=== PATIENT | male | born 1935 | race Caucasian/White ===

== ENCOUNTER 2017-08-17 17:06 | Emergency (ER) | payer MEDICARE, OTHER ==
[2017-08-17 17:46] LABS: ADD MAN DIFF? NO
[2017-08-17 17:58] LABS: BASO # 0.1 x10^3/uL (0.0-0.2); BASO % 1 % (0-3); EOS # 0.2 x10^3/uL (0.0-0.7); EOS % 3 % (0-3); HEMATOCRIT 44.9 % (39.0-53.0); HEMOGLOBIN 14.9 g/dL (13.0-17.5); LYMPH % 30 % (24-48); MEAN CORPUSCULAR HEMOGLOBIN 31 pg (25-35); MEAN CORPUSCULAR HGB CONC 33 g/dL (31-37); MEAN CORPUSCULAR VOLUME 92 fL (79-100); MONO # 0.7 x10^3/uL (0.0-1.1); MONO % 10 % (0-9); NEUT # 3.7 x10^3uL (1.8-7.7); NEUT % 56 % (31-73); PLATELET COUNT 213 x10^3/uL (140-400); RED BLOOD COUNT 4.86 x10^6/uL (4.30-5.70); WHITE BLOOD COUNT 6.6 x10^3/uL (4.0-11.0)
[2017-08-17 18:06] LABS: PROTHROMBIN TIME PATIENT 12.6 SEC (11.7-14.0)
[2017-08-17 18:08] LABS: ANION GAP 7 (6-14); BLOOD UREA NITROGEN 19 mg/dL (8-26); BUN/CREATININE RATIO 16 (6-20); CALCIUM 9.1 mg/dL (8.5-10.1); CARBON DIOXIDE 33 mmol/L (21-32); CHLORIDE 102 mmol/L (98-107); CREATININE 1.2 mg/dL (0.7-1.3); GFR 58.3; GLUCOSE 180 mg/dL (70-99); POTASSIUM 4.8 mmol/L (3.5-5.1); SODIUM 142 mmol/L (136-145)
[2017-08-17 18:13] LABS: ALBUMIN 3.9 g/dL (3.4-5.0); ALBUMIN/GLOBULIN RATIO 1.1 (1.0-1.7); ALK PHOS 76 U/L (46-116); ALT (SGPT) 22 U/L (16-63); AST (SGOT) 15 U/L (15-37); MAGNESIUM 1.6 mg/dL (1.8-2.4); TOTAL BILIRUBIN 0.4 mg/dL (0.2-1.0); TOTAL PROTEIN 7.5 g/dL (6.4-8.2)
[2017-08-17 18:14] LABS: TROPONINI < 0.017 ng/mL (0.000-0.055)
[2017-08-17 18:17] LABS: NT-PRO BNP 1444 pg/mL (0-449)
[2017-08-17 18:17] LABS: CKMB INDEX 2.1 % (0-4); CKMB MASS 2.9 ng/mL (0.0-3.6); CREATINE KINASE 135 U/L (39-308)
[2017-08-17] MEDS: IV NORMAL SALINE 1000ML BAG 1,000 ML IV (19:15)
[2017-08-17 20:48] LABS: BILIRUBIN,URINE NEGATIVE (NEG); CLARITY,URINE CLEAR; COLOR,URINE YELLOW; GLUCOSE,URINE 250 mg/dL (NEG); NITRITE,URINE NEGATIVE (NEG); PROTEIN,URINE NEGATIVE (NEG-TRACE); UROBILINOGEN,URINE 0.2 mg/dL (0.2 mg/dL)
[2017-08-17 21:01] LABS: BACTERIA,URINE FEW /HPF (0-FEW); RBC,URINE OCC /HPF (0-2); SQUAMOUS EPITHELIAL CELL,UR FEW /LPF
== END 2017-08-17 21:33 | disposition home or self-care (01) ==
LOC: ER 17:06
DX: R42 Dizziness and giddiness (principal); R53.1 Weakness; E78.00 Pure hypercholesterolemia, unspecified; I10 Essential (primary) hypertension; E11.9 Type 2 diabetes mellitus without complications; Z86.73 Personal history of transient ischemic attack (TIA), and cerebral infarction without residual deficits; Z88.0 Allergy status to penicillin; Z88.1 Allergy status to other antibiotic agents; Z88.5 Allergy status to narcotic agent
CPT/HCPCS: 36415; 70450; 71045; 80053; 81001; 82553; 83735; 83880; 84484; 85025; 85610; 87086; 87186; 93005; 96360; 99285-25; J7030

== ENCOUNTER 2017-12-05 01:36 | Inpatient (IN) | payer MEDICARE, OTHER ==
[~2017-12-05] VITALS: Ht 188 cm; Wt 94.9 kg
[2017-12-05] VITALS (16 sets, daily range): BP systolic 115–158; BP diastolic 52–70
[~2017-12-05 01:36] MED LIST: CARV6.25 PO; CEFP200T PO; CITA20TA6 PO; INSU100C SQ; INSU100I13 SQ; MEMA10TA PO; PANT20TA2 PO; RIVA1PAT22 TP; TAMS0.4C2 PO; TERA5CAP3 PO
--- NOTE | 2017-12-05 02:26 | PHYS DOC ---
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 Past Medical History Limited due to history of dementia Past Surgical History: Other Additional Past Surgical Histo: Head shunt Past Surgical History Limited due to dementia Additional Information: Nonsmoker Alcohol Use: None Drug Use: None Social History Limited due to dementia Adult General Chief Complaint Chief Complaint: MECHANICAL FALL HPI HPI Patient is a 82 yo male presenting to the ED due to fall. States that he was getting out of bed but slipped down onto the floor. Denies head trauma, nor other trauma to any body part as he slid down on the "board". Pt did not lose consciousness. Couldn't get up for 30 minutes but ultimately his sister, with whom he lives, helped him and called the ambulance. Currently states that he feels sick and complains of right arm pain above the elbow. He also states that he vomited after having fallen and that he is nauseous. Denies chest pain. HPI limited due to history of dementia Review of Systems Review of Systems Constitutional: Denies fever or chills [] Respiratory: Denies cough or shortness of breath [] Cardiovascular: Denies chest pain GI: Reports abdominal pain, nausea, vomiting Musculoskeletal: Reports right arm pain Integument: Denies rash or skin lesions [] Neurologic: Denies headache or sensory changes; reports generalized weakness ROS limited due to dementia Current Medications Current Medications Current Medications Medications (Trade) Dose Ordered Sig/Martita Start Time Stop Time Status Last Admin Dose Admin Famotidine (Pepcid Vial) 20 mg 1X ONCE 12/05/17 02:30 12/05/17 02:31 DC 12/05/17 02:49 20 MG Heparin Sodium/ Dextrose 500 ml @ 0 mls/hr CONT PRN 12/05/17 04:15 12/05/17 04:40 20 MLS/HR Ondansetron HCl (Zofran) 4 mg 1X ONCE 12/05/17 02:30 12/05/17 02:31 DC 12/05/17 02:48 4 MG Sodium Chloride 1,000 ml @ 1,000 mls/hr 1X ONCE 12/05/17 02:30 12/05/17 03:29 DC 12/05/17 02:55 1,000 MLS/HR Allergies Allergies Allergies Coded Allergies Type Severity Reaction Last Updated Verified Penicillins Allergy Severe swelling all over 09/02/17 Yes ciprofloxacin Allergy Intermediate 08/29/17 Yes codeine Allergy Intermediate 08/29/17 Yes hydrocodone Allergy Intermediate 08/29/17 Yes oxycodone Allergy Intermediate 08/29/17 Yes Physical Exam Physical Exam Constitutional: Well developed, well nourished, no acute distress, non-toxic appearance. [] HENT: Normocephalic, atraumatic, Eyes: PERRL, EOMI, conjunctiva normal, no discharge. [] Neck: Normal range of motion, no tenderness, supple, no meningeal signs Cardiovascular: Heart rate regular rhythm, no murmur [] Lungs & Thorax: Bilateral breath sounds clear to auscultation [] Abdomen: Soft, no tenderness Skin: Warm, dry, no erythema, no rash. [] Back: No tenderness, no CVA tenderness. [] Extremities: No tenderness, ROM intact, no edema. [] Neurologic: Alert and oriented X 3, RLE strength 4/5, mild slurred speech noted (patient reports baseline s/p CVA) Psychologic: Affect normal, judgement normal, mood normal. [] Current Patient Data Vital Signs Vital Signs Date Time Temp Pulse Resp B/P (MAP) Pulse Ox O2 Delivery O2 Flow Rate FiO2 12/05/17 04:12 94 20 97 12/05/17 01:36 98.9 152/62 (92) Room Air 98.9 Lab Values Laboratory Tests Test 12/05/17 02:28 12/05/17 03:22 12/05/17 03:30 Influenza Type A Antigen Negative (NEGATIVE) Influenza Type B Antigen Negative (NEGATIVE) White Blood Count 10.8 x10^3/uL (4.0-11.0) Red Blood Count 3.84 x10^6/uL (4.30-5.70) L Hemoglobin 12.2 g/dL (13.0-17.5) L Hematocrit 35.4 % (39.0-53.0) L Mean Corpuscular Volume 92 fL (79-100) Mean Corpuscular Hemoglobin 32 pg (25-35) Mean Corpuscular Hemoglobin Concent 34 g/dL (31-37) Red Cell Distribution Width 13.6 % (11.5-14.5) Platelet Count 142 x10^3/uL (140-400) Neutrophils (%) (Auto) 81 % (31-73) H Lymphocytes (%) (Auto) 9 % (24-48) L Monocytes (%) (Auto) 10 % (0-9) H Eosinophils (%) (Auto) 0 % (0-3) Basophils (%) (Auto) 0 % (0-3) Neutrophils # (Auto) 8.7 x10^3uL (1.8-7.7) H Lymphocytes # (Auto) 1.0 x10^3/uL (1.0-4.8) Monocytes # (Auto) 1.0 x10^3/uL (0.0-1.1) Eosinophils # (Auto) 0.0 x10^3/uL (0.0-0.7) Basophils # (Auto) 0.0 x10^3/uL (0.0-0.2) Prothrombin Time 13.9 SEC (11.7-14.0) Prothrombin Time INR 1.1 (0.8-1.1) PTT 29 SEC (24-38) Sodium Level 138 mmol/L (136-145) Potassium Level 4.3 mmol/L (3.5-5.1) Chloride Level 102 mmol/L (98-107) Carbon Dioxide Level 29 mmol/L (21-32) Anion Gap 7 (6-14) Blood Urea Nitrogen 24 mg/dL (8-26) Creatinine 1.4 mg/dL (0.7-1.3) H Estimated GFR (Cockcroft-Gault) 48.6 BUN/Creatinine Ratio 17 (6-20) Glucose Level 228 mg/dL (70-99) H Lactic Acid Level 1.5 mmol/L (0.4-2.0) Calcium Level 8.9 mg/dL (8.5-10.1) Magnesium Level 1.4 mg/dL (1.8-2.4) L Total Bilirubin 0.5 mg/dL (0.2-1.0) Aspartate Amino Transferase (AST) 29 U/L (15-37) Alanine Aminotransferase (ALT) 27 U/L (16-63) Alkaline Phosphatase 64 U/L (46-116) Creatine Kinase 785 U/L (39-308) H Creatine Kinase MB (Mass) 8.0 ng/mL (0.0-3.6) H Creatine Kinase MB Relative Index 1.0 % (0-4) Troponin I Quantitative 0.491 ng/mL (0.000-0.055) ER-Gya-X-Type Natriuretic Peptide 1732 pg/mL (0-449) H Total Protein 6.5 g/dL (6.4-8.2) Albumin 3.2 g/dL (3.4-5.0) L Albumin/Globulin Ratio 1.0 (1.0-1.7) Lipase 112 U/L (73-393) Urine Collection Type Void Urine Color Yellow Urine Clarity Cloudy Urine pH 5.5 Urine Specific Metz 1.025 Urine Protein 30 mg/dL (NEG-TRACE) Urine Glucose (UA) 500 mg/dL (NEG) Urine Ketones (Stick) Negative mg/dL (NEG) Urine Blood Large (NEG) Urine Nitrite Positive (NEG) Urine Bilirubin Negative (NEG) Urine Urobilinogen Dipstick 0.2 mg/dL (0.2 mg/dL) Urine Leukocyte Esterase Large (NEG) Urine RBC 11-20 /HPF (0-2) Urine WBC Tntc /HPF (0-4) Urine Squamous Epithelial Cells Occ /LPF Urine Bacteria Many /HPF (0-FEW) Urine Opiates Screen Neg (NEG) Urine Methadone Screen Neg (NEG) Urine Barbiturates Neg (NEG) Urine Phencyclidine Screen Neg (NEG) Urine Amphetamine/Methamphetamine Neg (NEG) Urine Benzodiazepines Screen Neg (NEG) Urine Cocaine Screen Neg (NEG) Urine Cannabinoids Screen Neg (NEG) Urine Ethyl Alcohol Neg (NEG) Laboratory Tests 12/05/17 03:22 Laboratory Tests 12/05/17 03:22 EKG EKG @0146, at 97 bpm, normal sinus rhythm, baseline artifact present, wide QRS complexes with hyperacute T waves in leads V1-V3, T wave inversions noted in leads I and aVL. Compared with previous EKG from 08/29/17 Radiology/Procedures Radiology/Procedures PROCEDURE: CT HEAD AND CERVICAL SPINE WO EXAM: CT HEAD WITHOUT IV CONTRAST CLINICAL HISTORY: weakness, fell, pain in neck and head COMPARISON: 08/29/2017 TECHNIQUE: Routine CT of the head without contrast. Soft tissues and bone windows were reviewed. PQRS compliance statement - One or more of the following individualized dose reduction techniques were utilized for this study: 1. Automated exposure control 2. Adjustment of the mA and/or kV according to patient size 3. Use of iterative reconstruction technique FINDINGS: There is no evidence of hemorrhage, mass or extra-axial fluid collection. Duong-white differentiation is maintained with no evidence of edema. There are non-specific foci of hypodensity in the periventricular and subcortical white matter of the cerebral hemispheres. There is no mass effect or shift of the intracranial structures. Stable hydrocephalus. Prominence of the cortical sulci and gyri consistent with atrophy, also grossly stable. The cerebellum and brainstem are unremarkable. A right frontal approach [employer] shunt catheter is seen with tip projecting over the left lateral ventricle. The calvarium demonstrates no evidence of fracture or focal lesion. There is normal aeration of the visualized paranasal sinuses and mastoid air cells. The visualized portions of the orbits are normal. Atherosclerotic calcifications of the intracranial internal carotid and vertebral arteries is seen. IMPRESSION: 1. No evidence for acute intracranial abnormality. EXAM: Ct Cervical Spine Without Iv Contrast CLINICAL HISTORY: weakness, fell , pain in neck and head COMPARISON: None available. TECHNIQUE: Helical CT of the cervical spine was performed. Axial, coronal and sagittal reformatted images were also performed. PQRS compliance statement - One or more of the following individualized dose reduction techniques were utilized for this study: 1. Automated exposure control 2. Adjustment of the mA and/or kV according to patient size 3. Use of iterative reconstruction technique FINDINGS: Vertebral body heights are preserved. Mild intervertebral disc height loss at C4-5, C5-6. Associated anterior endplate osteophytes are seen. No spondylolisthesis although there is exaggeration of the normal cervical lordosis. No evidence of acute fracture. 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 C2-C3: No significant central canal stenosis or neural foraminal narrowing. C3-C4: No significant central canal stenosis or neural foraminal narrowing. C4-C5: Posterior disc osteophyte complex with facet degenerative changes and ligamentum flavum hypertrophy cause mild central canal stenosis and mild bilateral neural foraminal narrowing. C5-C6: Posterior disc osteophyte complex with facet degenerative changes cause mild central canal stenosis and no significant neural foraminal narrowing. C6-C7: No significant central canal stenosis or neural foraminal narrowing. C7-T1: No significant central canal stenosis or neural foraminal narrowing. IMPRESSION: 1. No evidence for acute fracture or subluxation. 2. Multilevel degenerative changes as above. Electronically signed by: Hung Monk MD (12/05/2017 3:48 AM) [facility] AP CXR: (Preliminary interpretation by ED physician): No acute process XR R humerus: (preliminary interpretation by ED physician): No acute fracture/ dislocation Course & Med Decision Making Course & Med Decision Making 82 yo pt presents after having slid off his bed. Reported that his right arm is in pain and that his stomach "feels sick". Given pepcid and zofran. Preliminary XR of right humerus was unremarkable. CT head/cervical spine without acute process. Patient alert and oriented but has history of dementia. Labs obtained and posted to chart. UA with signs of infection. Empiric antibiotics given. Troponin elevated. EKG without significant ST elevation. Patient denies chest pain. Given findings heparin bolus/gtt initiated. Patient requiring admission for further evaluation and treatment. Discussed with Dr. Modi (hospitalist) who is in agreement with admission. Discussed findings and plan with patient, who acknowledges understanding and agreement. Dragon Disclaimer Dragon Disclaimer This electronic medical record was generated, in whole or in part, using a voice recognition dictation system. Departure Departure Impression: Primary Impression: Weakness Additional Impressions: Acute UTI Elevated troponin Renal insufficiency Disposition: ADMITTED INPATIENT Admitting Physician: Peace Modi Condition: GUARDED Referrals: STAN DURAN DO (PCP) Critical Care Time Critical care time was 30 minutes which includes time at bedside, spent in discussion of patient's care with specialists and/or family members, with interpretation of laboratory and/or radiological studies and is exclusive of procedures. Problem Qualifiers CHRISTOPHER JOSUE DO Dec 05, 2017 02:26
[2017-12-05] MEDS ORDERED: ONDANSETRON PF 4 MG/2 ML VIAL. IV ONE (02:30)
[2017-12-05] MEDS ORDERED: IV NORMAL SALINE 1000ML BAG 1,000 ML IV ONE ×2 (02:30→10:15)
[2017-12-05] MEDS ORDERED: FAMOTIDINE 20 MG/2 ML VIAL IVP ONE (02:30)
[2017-12-05 02:52] LABS: INFLUENZA A PATIENT NEGATIVE (NEGATIVE); INFLUENZA B PATIENT NEGATIVE (NEGATIVE)
[2017-12-05 03:40] LABS: BASO % 0 % (0-3); EOS % 0 % (0-3); HEMATOCRIT 35.4 % (39.0-53.0); HEMOGLOBIN 12.2 g/dL (13.0-17.5); LYMPH % 9 % (24-48); MEAN CORPUSCULAR HEMOGLOBIN 32 pg (25-35); MEAN CORPUSCULAR HGB CONC 34 g/dL (31-37); MEAN CORPUSCULAR VOLUME 92 fL (79-100); MONO % 10 % (0-9); NEUT # 8.7 x10^3uL (1.8-7.7); NEUT % 81 % (31-73); PLATELET COUNT 142 x10^3/uL (140-400); RED BLOOD COUNT 3.84 x10^6/uL (4.30-5.70); RED CELL DISTRIBUTION WIDTH 13.6 % (11.5-14.5); WHITE BLOOD COUNT 10.8 x10^3/uL (4.0-11.0)
[2017-12-05 03:42] LABS: BILIRUBIN,URINE NEGATIVE (NEG); CLARITY,URINE CLOUDY; COLOR,URINE YELLOW; NITRITE,URINE POSITIVE (NEG); PH,URINE 5.5; PROTEIN,URINE 30 mg/dL (NEG-TRACE); UROBILINOGEN,URINE 0.2 mg/dL (0.2 mg/dL)
[2017-12-05 03:47] LABS: CALCIUM 8.9 mg/dL (8.5-10.1); CREATININE 1.4 mg/dL (0.7-1.3); GFR 48.6; POTASSIUM 4.3 mmol/L (3.5-5.1)
[2017-12-05 03:48] LABS: PROTHROMBIN TIME PATIENT 13.9 SEC (11.7-14.0)
[2017-12-05 03:49] LABS: AMPHETAMINE/METHAMPHETAMINE NEG (NEG); BARBITURATES NEG (NEG); BENZODIAZEPINES NEG (NEG); CANNABINOIDS NEG (NEG); COCAINE NEG (NEG); METHADONE NEG (NEG); OPIATES NEG (NEG); PHENCYCLIDINE NEG (NEG)
--- NOTE | 2017-12-05 03:51 | RAD ---
EXAM: CT HEAD WITHOUT IV CONTRAST CLINICAL HISTORY: weakness, fell, pain in neck and head COMPARISON: 08/29/2017 TECHNIQUE: Routine CT of the head without contrast. Soft tissues and bone windows were reviewed. PQRS compliance statement - One or more of the following individualized dose reduction techniques were utilized for this study: 1. Automated exposure control 2. Adjustment of the mA and/or kV according to patient size 3. Use of iterative reconstruction technique FINDINGS: There is no evidence of hemorrhage, mass or extra-axial fluid collection. Duong-white differentiation is maintained with no evidence of edema. There are non-specific foci of hypodensity in the periventricular and subcortical white matter of the cerebral hemispheres. There is no mass effect or shift of the intracranial structures. Stable hydrocephalus. Prominence of the cortical sulci and gyri consistent with atrophy, also grossly stable. The cerebellum and brainstem are unremarkable. A right frontal approach [employer] shunt catheter is seen with tip projecting over the left lateral ventricle. The calvarium demonstrates no evidence of fracture or focal lesion. There is normal aeration of the visualized paranasal sinuses and mastoid air cells. The visualized portions of the orbits are normal. Atherosclerotic calcifications of the intracranial internal carotid and vertebral arteries is seen. IMPRESSION: 1. No evidence for acute intracranial abnormality. EXAM: Ct Cervical Spine Without Iv Contrast CLINICAL HISTORY: weakness, fell , pain in neck and head COMPARISON: None available. TECHNIQUE: Helical CT of the cervical spine was performed. Axial, coronal and sagittal reformatted images were also performed. PQRS compliance statement - One or more of the following individualized dose reduction techniques were utilized for this study: 1. Automated exposure control 2. Adjustment of the mA and/or kV according to patient size 3. Use of iterative reconstruction technique FINDINGS: Vertebral body heights are preserved. Mild intervertebral disc height loss at C4-5, C5-6. Associated anterior endplate osteophytes are seen. No spondylolisthesis although there is exaggeration of the normal cervical lordosis. No evidence of acute fracture. 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 C2-C3: No significant central canal stenosis or neural foraminal narrowing. C3-C4: No significant central canal stenosis or neural foraminal narrowing. C4-C5: Posterior disc osteophyte complex with facet degenerative changes and ligamentum flavum hypertrophy cause mild central canal stenosis and mild bilateral neural foraminal narrowing. C5-C6: Posterior disc osteophyte complex with facet degenerative changes cause mild central canal stenosis and no significant neural foraminal narrowing. C6-C7: No significant central canal stenosis or neural foraminal narrowing. C7-T1: No significant central canal stenosis or neural foraminal narrowing. IMPRESSION: 1. No evidence for acute fracture or subluxation. 2. Multilevel degenerative changes as above. Electronically signed by: Hung Monk MD (12/05/2017 3:48 AM) [facility]
[2017-12-05 03:53] LABS: ALBUMIN 3.2 g/dL (3.4-5.0); MAGNESIUM 1.4 mg/dL (1.8-2.4); TOTAL BILIRUBIN 0.5 mg/dL (0.2-1.0); TOTAL PROTEIN 6.5 g/dL (6.4-8.2)
[2017-12-05 03:56] LABS: BACTERIA,URINE MANY /HPF (0-FEW); SQUAMOUS EPITHELIAL CELL,UR OCC /LPF; WBC,URINE TNTC /HPF (0-4)
[2017-12-05] MEDS ORDERED: HEPARIN 25,000UTS/500ML PREMIX 500 ML IV PRN (04:15)
[2017-12-05] MEDS ORDERED: fentaNYL PF VIAL 100 MCG/2 ML VIAL IV PRN (04:30)
[2017-12-05] MEDS ORDERED: HEPARIN for IV BOLUS 10,000 UNIT/10 ML VIAL. IV ONE (04:30)
[2017-12-05] MEDS ORDERED: DEXTROSE 50% 25 GM / 50ML DISP.SYRIN. IV PRN (04:30)
[2017-12-05] MEDS ORDERED: ONDANSETRON PF 4 MG/2 ML VIAL. IV PRN (04:30)
[2017-12-05] MEDS ORDERED: ASPIRIN 325 MG TABLET PO ONE (05:00)
--- NOTE | 2017-12-05 05:44 | EKG ---
[facility] [address] [place] [address] Test Date: 2017-12-05 Test Time: 01:46:13 Pat Name: MADELAINE RENEE Department: Room: Gender: M [employer]: : [id number] Requested By: CHRISTOPHER JOSUE Order Number: [id number] Reading MD: Measurements Intervals [place] Rate: 96 P: -131 [place]: 174 QRS: -34 QRSD: 140 T: 96 QT: 386 QTc: 494 Interpretive Statements SUPRAVENTRICULAR RHYTHM LEFT ATRIAL ABNORMALITY ABNORMAL LEFT AXIS DEVIATION LEFT ANTERIOR FASCICULAR BLOCK NON SPECIFIC INTRAVENTRICULAR BLOCK ABNORMAL ECG No previous ECG available for comparison
--- NOTE | 2017-12-05 07:49 | PDOC1 ---
History and Physical Date of Admission Date of Admission DATE: 12/05/17 TIME: 07:46 Identification/Chief Complaint Chief Complaint Fall Elevated troponin Altered mental status Source Source: Caregiver, Chart review, Patient History of Present Illness History of Present Illness Patient is a 82 yo male presenting to the ED due to fall. States that he was getting out of bed but slipped down onto the floor. Denies head trauma, nor other trauma to any body part as he slid down on the "board". Pt did not lose consciousness. Couldn't get up for 30 minutes but ultimately his sister, with whom he lives, helped him and called the ambulance. Currently states that he feels sick and complains of right arm pain above the elbow. He also states that he vomited after having fallen and that he is nauseous. Denies chest pain, however, has a "heavy" left arm, and was noted with wide QRS and TWI in I and AVL on EKG in ED and troponin elevation to 0.4. CT head, c-spine, CXR, and right humerus x-ray showed no fractures or acute traumatic findings. Cr noted at 1.4 and UA with bacteria, positive LE and nitrites noted as well. Started on empiric antibiotics for UTI, heparin GTT for NSTEMI and admitted for further care. He has hx of CAD but could not remember of any past stents but the [facility] has been a while. Also he was told that he may need a defibrillator by a chef's assistant in [place] as well and feels he was going to move to [place] to have this done, now states he lives here and is not moving. PMHx HTN, HLP, DM2 and possibly with AFIB, does not recall all his medications because he has some dementia and forgetful. Currently he is AOx3 and presently denies any discomfort. Past Medical History Cardiovascular: AFIB, HTN, Hyperlipidemia CENTRAL NERVOUS SYSTEM: CVA, Other Heme/Onc: No pertinent hx Hepatobiliary: Cirrhosis Psych: No pertinent hx Musculoskeletal: Osteoarthritis Rheumatologic: No pertinent hx Infectious disease: No pertinent hx Renal/: No pertinent hx Endocrine: Diabetes Past Surgical History Past Surgical History: Other Family History Family History: High Cholestrol Family History: Parent Social History Smoke: Quit ALCOHOL: none Drugs: None Current Problem List Problem List Problems Medical Problems: (1) Acute UTI Status: Acute (2) Elevated troponin Status: Acute (3) Renal insufficiency Status: Acute (4) Weakness Status: Acute Current Medications Current Medications Current Medications Sodium Chloride 1,000 ml @ 1,000 mls/hr 1X ONCE IV Last administered on 12/05at 02:55; Start 12/05/17 at 02:30; Stop 12/05/17 at 03:29; Status DC Ondansetron HCl (Zofran) 4 mg 1X ONCE IV Last administered on 12/05/17at 02:48 ; Start 12/05/17 at 02:30; Stop 12/05/17 at 02:31; Status DC Famotidine (Pepcid Vial) 20 mg 1X ONCE IVP Last administered on 12/05/17at 02: 49; Start 12/05/17 at 02:30; Stop 12/05/17 at 02:31; Status DC Ceftriaxone Sodium 50 ml @ 100 mls/hr 1X ONCE IV Last administered on at 04:29; Start 12/05/17 at 04:30; Stop 12/05/17 at 04:59; Status DC Heparin Sodium (Porcine) (Heparin Sodium) 4,000 unit 1X ONCE IV Last administered on 12/05/17at 04:24; Start 12/05/17 at 04:30; Stop 12/05/17 at 04 :31; Status DC Heparin Sodium/ Dextrose 500 ml @ 0 mls/hr CONT PRN IV SEE I/O RECORD Last administered on 12/05/17at 04:40; Start 12/05/17 at 04:15 Aspirin (Marilee Aspirin) 325 mg 1X ONCE PO Last administered on 12/05/17at 04: 31; Start 12/05/17 at 05:00; Stop 12/05/17 at 05:01; Status DC Ondansetron HCl (Zofran) 4 mg PRN Q8HRS PRN IV NAUSEA/VOMITING 1ST CHOICE; Start 12/05/17 at 04:30; Stop 12/06/17 at 04:29 Fentanyl Citrate (Fentanyl 2ml Vial) 50 mcg PRN Q2HR PRN IV SEVERE PAIN; Start 12/05/17 at 04:30; Stop 12/06/17 at 04:29 Insulin Human Lispro (HumaLOG) 0-5 UNITS TIDWMEALS SQ ; Start 12/05/17 at 08:00 Dextrose (Dextrose 50%-Water Syringe) 12.5 gm PRN Q15MIN PRN IV SEE COMMENTS; Start 12/05/17 at 04:30 Influenza Virus Vaccine (Afluria Trivalent 0460-1697 Syringe) 0.5 ml ONCE ONCE VAX IM ; Start 12/05/17 at 09:00; Stop 12/05/17 at 09:01 Active Scripts Active Reported Cefpodoxime Proxetil 200 Mg Tablet 1 Tab PO BID 7 Days Humalog (Insulin Lispro) 100 Unit/1 Ml Cartridge 15 Unit SQ TIDAC Citalopram Hbr (Citalopram Hydrobromide) 20 Mg Tablet 1 Tab PO DAILY Terazosin Hcl 5 Mg Capsule 1 Cap PO QHS Coreg (Carvedilol) 6.25 Mg Tablet 1 Tab PO BID EXELON 4.6mg/24hr (Rivastigmine) 1 Each Patch.td24 1 Patch TP DAILY Lantus Solostar (Insulin Glargine,Hum.rec.anlog) 100 Unit/1 Ml Insuln.pen 60 Unit SQ DAILY Tamsulosin Hcl 0.4 Mg Cap.er.24h 0.4 Mg PO HS Protonix (Pantoprazole Sodium) 20 Mg Tablet.dr 40 Mg PO DAILY Namenda (Memantine Hcl) 10 Mg Tablet 10 Mg PO DAILY Allergies Allergies: Coded Allergies: Penicillins (Verified Allergy, Severe, swelling all over, 09/02/17) tolerates CEPHALOSPORINS ciprofloxacin (Verified Allergy, Intermediate, 08/29/17) codeine (Verified Allergy, Intermediate, 08/29/17) hydrocodone (Verified Allergy, Intermediate, 08/29/17) oxycodone (Verified Allergy, Intermediate, 08/29/17) ROS General: YES: Malaise; No: Chills, Night Sweats, Fatigue, Appetite, Other PSYCHOLOGICAL ROS: YES: Memory difficulties Eyes: No Blurry vision, No Decreased vision, No Double vision, No Dry eyes, No Excessive tearing, No Eye Pain, No Itchy Eyes, No Loss of vision, No Photophobia , No Scotomata, No Uses contacts, No Uses glasses, No Other HEENT: No: Heacaches, Visual Changes, Hearing change, Nasal congestion, Nasal discharge, Oral lesions, Sinus pain, Sore Throat, Epistaxis, Sneezing, Snoring, Tinnitus, Vertigo, Vocal changes, Other ALLERGY AND IMMUNOLOGY: No: Hives, Insect Bite Sensitivity, Itchy/Watery Eyes, Nasal Congestion, Post Nasal Drip, Seasonal Allergies, Other Hematological and Lymphatic: No: Bleeding Problems, Blood Clots, Blood Transfusions, Brusing, Night Sweats, Pallor, Swollen Lymph Nodes, Other Respiratory: YES: SOB with excertion Gastrointestinal: Yes Nausea Genitourinary: YES Dysuria, YES Frequency, YES Retention, YES Urgency Musculoskeletal: Yes Gait Disturbance, Yes Muscular Weakness Neurological: Yes Confusion, Yes Gait Disturbance, Yes Impaired Coord/balance Skin: No Dry Skin, No Eczema, No Hair Changes, No Lumps, No Mole Changes, No Mottling, No Nail Changes, No Pruritus, No Rash, No Skin Lesion Changes, No Other, No Acne Physical Exam General: Alert, Oriented X3 (not to date), Cooperative, No acute distress Lungs: Clear to auscultation, Normal air movement Heart: S1S2, no gallops, irregularly irregular Abdomen: Normal bowel sounds, Soft, No tenderness, No hepatosplenomegaly, No masses Male Genitals Exam: normal genitalia Rectal Exam: not examined Extremities: No clubbing, No cyanosis, No edema, Normal pulses, No tenderness/ swelling Skin: Other (Some gluteal redness) Neuro: Normal speech, Strength at 5/5 X4 ext, Normal tone, Sensation intact, Cranial nerves 3-12 NL, Reflexes 2+ Psych/Mental Status: Mental status NL, Mood NL Vitals Vitals Vital Signs Date Time Temp Pulse Resp B/P (MAP) Pulse Ox O2 Delivery O2 Flow Rate FiO2 12/05/17 07:00 99.2 85 22 131/58 (82) 96 Room Air 99.2 Labs Labs Laboratory Tests Test 12/05/17 02:28 12/05/17 03:22 12/05/17 03:30 Influenza Type A Antigen Negative (NEGATIVE) Influenza Type B Antigen Negative (NEGATIVE) White Blood Count 10.8 x10^3/uL (4.0-11.0) Red Blood Count 3.84 x10^6/uL (4.30-5.70) Hemoglobin 12.2 g/dL (13.0-17.5) Hematocrit 35.4 % (39.0-53.0) Mean Corpuscular Volume 92 fL (79-100) Mean Corpuscular Hemoglobin 32 pg (25-35) Mean Corpuscular Hemoglobin Concent 34 g/dL (31-37) Red Cell Distribution Width 13.6 % (11.5-14.5) Platelet Count 142 x10^3/uL (140-400) Neutrophils (%) (Auto) 81 % (31-73) Lymphocytes (%) (Auto) 9 % (24-48) Monocytes (%) (Auto) 10 % (0-9) Eosinophils (%) (Auto) 0 % (0-3) Basophils (%) (Auto) 0 % (0-3) Neutrophils # (Auto) 8.7 x10^3uL (1.8-7.7) Lymphocytes # (Auto) 1.0 x10^3/uL (1.0-4.8) Monocytes # (Auto) 1.0 x10^3/uL (0.0-1.1) Eosinophils # (Auto) 0.0 x10^3/uL (0.0-0.7) Basophils # (Auto) 0.0 x10^3/uL (0.0-0.2) Prothrombin Time 13.9 SEC (11.7-14.0) Prothromb Time International Ratio 1.1 (0.8-1.1) Activated Partial Thromboplast Time 29 SEC (24-38) Sodium Level 138 mmol/L (136-145) Potassium Level 4.3 mmol/L (3.5-5.1) Chloride Level 102 mmol/L (98-107) Carbon Dioxide Level 29 mmol/L (21-32) Anion Gap 7 (6-14) Blood Urea Nitrogen 24 mg/dL (8-26) Creatinine 1.4 mg/dL (0.7-1.3) Estimated GFR (Cockcroft-Gault) 48.6 BUN/Creatinine Ratio 17 (6-20) Glucose Level 228 mg/dL (70-99) Lactic Acid Level 1.5 mmol/L (0.4-2.0) Calcium Level 8.9 mg/dL (8.5-10.1) Magnesium Level 1.4 mg/dL (1.8-2.4) Total Bilirubin 0.5 mg/dL (0.2-1.0) Aspartate Amino Transf (AST/SGOT) 29 U/L (15-37) Alanine Aminotransferase (ALT/SGPT) 27 U/L (16-63) Alkaline Phosphatase 64 U/L (46-116) Creatine Kinase 785 U/L (39-308) Creatine Kinase MB (Mass) 8.0 ng/mL (0.0-3.6) Creatine Kinase MB Relative Index 1.0 % (0-4) Troponin I Quantitative 0.491 ng/mL (0.000-0.055) XR-Vgo-D-Type Natriuretic Peptide 1732 pg/mL (0-449) Total Protein 6.5 g/dL (6.4-8.2) Albumin 3.2 g/dL (3.4-5.0) Albumin/Globulin Ratio 1.0 (1.0-1.7) Lipase 112 U/L (73-393) Urine Collection Type Void Urine Color Yellow Urine Clarity Cloudy Urine pH 5.5 Urine Specific [place] 1.025 Urine Protein 30 mg/dL (NEG-TRACE) Urine Glucose (UA) 500 mg/dL (NEG) Urine Ketones (Stick) Negative mg/dL (NEG) Urine Blood Large (NEG) Urine Nitrite Positive (NEG) Urine Bilirubin Negative (NEG) Urine Urobilinogen Dipstick 0.2 mg/dL (0.2 mg/dL) Urine Leukocyte Esterase Large (NEG) Urine RBC 11-20 /HPF (0-2) Urine WBC Tntc /HPF (0-4) Urine Squamous Epithelial Cells Occ /LPF Urine Bacteria Many /HPF (0-FEW) Urine Opiates Screen Neg (NEG) Urine Methadone Screen Neg (NEG) Urine Barbiturates Neg (NEG) Urine Phencyclidine Screen Neg (NEG) Urine Amphetamine/Methamphetamine Neg (NEG) Urine Benzodiazepines Screen Neg (NEG) Urine Cocaine Screen Neg (NEG) Urine Cannabinoids Screen Neg (NEG) Urine Ethyl Alcohol Neg (NEG) Laboratory Tests Test 12/05/17 02:28 12/05/17 03:22 12/05/17 03:30 Influenza Type A Antigen Negative (NEGATIVE) Influenza Type B Antigen Negative (NEGATIVE) White Blood Count 10.8 x10^3/uL (4.0-11.0) Red Blood Count 3.84 x10^6/uL (4.30-5.70) Hemoglobin 12.2 g/dL (13.0-17.5) Hematocrit 35.4 % (39.0-53.0) Mean Corpuscular Volume 92 fL (79-100) Mean Corpuscular Hemoglobin 32 pg (25-35) Mean Corpuscular Hemoglobin Concent 34 g/dL (31-37) Red Cell Distribution Width 13.6 % (11.5-14.5) Platelet Count 142 x10^3/uL (140-400) Neutrophils (%) (Auto) 81 % (31-73) Lymphocytes (%) (Auto) 9 % (24-48) Monocytes (%) (Auto) 10 % (0-9) Eosinophils (%) (Auto) 0 % (0-3) Basophils (%) (Auto) 0 % (0-3) Neutrophils # (Auto) 8.7 x10^3uL (1.8-7.7) Lymphocytes # (Auto) 1.0 x10^3/uL (1.0-4.8) Monocytes # (Auto) 1.0 x10^3/uL (0.0-1.1) Eosinophils # (Auto) 0.0 x10^3/uL (0.0-0.7) Basophils # (Auto) 0.0 x10^3/uL (0.0-0.2) Prothrombin Time 13.9 SEC (11.7-14.0) Prothromb Time International Ratio 1.1 (0.8-1.1) Activated Partial Thromboplast Time 29 SEC (24-38) Sodium Level 138 mmol/L (136-145) Potassium Level 4.3 mmol/L (3.5-5.1) Chloride Level 102 mmol/L (98-107) Carbon Dioxide Level 29 mmol/L (21-32) Anion Gap 7 (6-14) Blood Urea Nitrogen 24 mg/dL (8-26) Creatinine 1.4 mg/dL (0.7-1.3) Estimated GFR (Cockcroft-Gault) 48.6 BUN/Creatinine Ratio 17 (6-20) Glucose Level 228 mg/dL (70-99) Lactic Acid Level 1.5 mmol/L (0.4-2.0) Calcium Level 8.9 mg/dL (8.5-10.1) Magnesium Level 1.4 mg/dL (1.8-2.4) Total Bilirubin 0.5 mg/dL (0.2-1.0) Aspartate Amino Transf (AST/SGOT) 29 U/L (15-37) Alanine Aminotransferase (ALT/SGPT) 27 U/L (16-63) Alkaline Phosphatase 64 U/L (46-116) Creatine Kinase 785 U/L (39-308) Creatine Kinase MB (Mass) 8.0 ng/mL (0.0-3.6) Creatine Kinase MB Relative Index 1.0 % (0-4) Troponin I Quantitative 0.491 ng/mL (0.000-0.055) FO-Lcw-L-Type Natriuretic Peptide 1732 pg/mL (0-449) Total Protein 6.5 g/dL (6.4-8.2) Albumin 3.2 g/dL (3.4-5.0) Albumin/Globulin Ratio 1.0 (1.0-1.7) Lipase 112 U/L (73-393) Urine Collection Type Void Urine Color Yellow Urine Clarity Cloudy Urine pH 5.5 Urine Specific [place] 1.025 Urine Protein 30 mg/dL (NEG-TRACE) Urine Glucose (UA) 500 mg/dL (NEG) Urine Ketones (Stick) Negative mg/dL (NEG) Urine Blood Large (NEG) Urine Nitrite Positive (NEG) Urine Bilirubin Negative (NEG) Urine Urobilinogen Dipstick 0.2 mg/dL (0.2 mg/dL) Urine Leukocyte Esterase Large (NEG) Urine RBC 11-20 /HPF (0-2) Urine WBC Tntc /HPF (0-4) Urine Squamous Epithelial Cells Occ /LPF Urine Bacteria Many /HPF (0-FEW) Urine Opiates Screen Neg (NEG) Urine Methadone Screen Neg (NEG) Urine Barbiturates Neg (NEG) Urine Phencyclidine Screen Neg (NEG) Urine Amphetamine/Methamphetamine Neg (NEG) Urine Benzodiazepines Screen Neg (NEG) Urine Cocaine Screen Neg (NEG) Urine Cannabinoids Screen Neg (NEG) Urine Ethyl Alcohol Neg (NEG) VTE Prophylaxis Ordered VTE Prophylaxis Devices: Yes VTE Pharmacological Prophylaxi: Yes Assessment/Plan Assessment/Plan A/P: Fall - at home, normal imaging. Will get PT/OT to see Urinary tract infection - likely cause of fall, empiric rocephin for now Elevated troponin - likely NSTEMI with a cardiac history, wide QRS, TWI, with increasing troponin. Consult cardiology, heparin GTT Acute renal failure - likely pre-renal, but could be due to some mild obstruction and related to infection. Gentle fluids for now. 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 With his fall and urinary complaints as well as confusion , this is a possibility. Seems oriented to location and month, year, person. Light during day for now. May need neuro consultation MODE RAMOS MD Dec 05, 2017 07:49
[2017-12-05] MEDS: INSULIN LISPRO 300 UNITS/3 ML INSULN.PEN. SQ SCH ×3 (08:00→17:42)
--- NOTE | 2017-12-05 08:08 | RAD ---
PORTABLE CHEST 1V Clinical indications: weakness, fall, cough COMPARISON: August 29, 2017. Findings: There is a new finding of mild elevation left hemidiaphragm. No acute lung infiltrate or pleural effusion or pulmonary edema or lung mass or pneumothorax is seen. The heart size, pulmonary vasculature, mediastinum and both marcia are stable. A right ventricular caval shunt or right IJ central line is present and the tip is seen down to the mid cava level. Impression: New finding of mild elevation of the left hemidiaphragm. No acute lung infiltrate. Electronically signed by: Andry Beltran MD (12/05/2017 8:04 AM) [facility]
--- NOTE | 2017-12-05 08:09 | RAD ---
2 view right humerus study Clinical indications: Distal humerus pain after a fall. FINDINGS: No acute fracture or dislocation or osteolytic process evident. IMPRESSION: No acute fracture. Electronically signed by: Andry Beltran MD (12/05/2017 8:06 AM) [facility]
--- NOTE | 2017-12-05 08:30 | EKG ---
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
[2017-12-05 08:40] LABS: CHOLESTEROL/HDL RATIO 2.7
--- NOTE | 2017-12-05 10:16 | PDOC2 ---
ALINADEMI Blunt RECONNAISSANCE CREWMEMBER 12/05/17 1016: CARDIAC CONSULT DATE OF CONSULT Date of Consult DATE: 12/05/17 TIME: 10:02 REASON FOR CONSULT Reason for Consult: Elevated troponin REFERRING PHYSICIAN Referring Physician: Jacqueline SOURCE Source: Chart review, Patient HISTORY OF PRESENT ILLNESS HISTORY OF PRESENT ILLNESS This is a pleasant 82 yo male admitted for complains of fall. He said that he just slipped but did not actually fall but slid down to the floor from his bed. After which he coul not get up until he was helped by his sister whom he lives with. Reports that he has been having IZAGUIRRE lately with nausea and sensation of heaviness to his left arm but no chest pain. He has hx of CAD but could not remember of any past stents but the LHC has been a while. Also he was told that he may need a defibrillator but this was a while back as well when he was in [place]. He has HTN, HLP, DM2. Questionable for PAFIB hx and unclear about his medications because he has some dementia and forgetful. Currently he is AOx3 and presently denies any discomfort. PAST MEDICAL HISTORY Cardiovascular: AFIB (?), CAD, CHF, HTN, Hyperlipidemia Pulmonary: COPD, Pneumonia CENTRAL NERVOUS SYSTEM: CVA, Dementia GI: GERD Hepatobiliary: Cirrhosis Psych: Anxiety Musculoskeletal: low back pain, Osteoarthritis, Other (falls) Rheumatologic: No pertinent hx Infectious disease: No pertinent hx ENT: Other ([facility]) Renal/: Urinary Incontinence Endocrine: Diabetes Dermatology: No pertinent hx PAST SURGICAL HISTORY Past Surgical History: Other ([facility]) FAMILY HISTORY Family History: Family History Unknown SOCIAL HISTORY Smoke: Quit ALCOHOL: occassional Drugs: None Lives: with Family CURRENT MEDICATIONS CURRENT MEDICATIONS Current Medications Medications (Trade) Dose Ordered Sig/Martita Route PRN Reason Start Time Stop Time Status Last Admin Dose Admin Sodium Chloride 1,000 ml @ 1,000 mls/hr 1X ONCE IV 12/05/17 02:30 12/05/17 03:29 DC 12/05/17 02:55 Ondansetron HCl (Zofran) 4 mg 1X ONCE IV 12/05/17 02:30 12/05/17 02:31 DC 12/05/17 02:48 Famotidine (Pepcid Vial) 20 mg 1X ONCE IVP 12/05/17 02:30 12/05/17 02:31 DC 12/05/17 02:49 Ceftriaxone Sodium 50 ml @ 100 mls/hr 1X ONCE IV 12/05/17 04:30 12/05/17 04:59 DC 12/05/17 04:29 Heparin Sodium (Porcine) (Heparin Sodium) 4,000 unit 1X ONCE IV 12/05/17 04:30 12/05/17 04:31 DC 12/05/17 04:24 Heparin Sodium/ Dextrose 500 ml @ 0 mls/hr CONT PRN IV SEE I/O RECORD 12/05/17 04:15 12/05/17 04:40 Aspirin (Marilee Aspirin) 325 mg 1X ONCE PO 12/05/17 05:00 12/05/17 05:01 DC 12/05/17 04:31 ALLERGIES ALLERGIES: Coded Allergies: Penicillins (Verified Allergy, Severe, swelling all over, 09/02/17) tolerates CEPHALOSPORINS ciprofloxacin (Verified Allergy, Intermediate, 08/29/17) codeine (Verified Allergy, Intermediate, 08/29/17) hydrocodone (Verified Allergy, Intermediate, 08/29/17) oxycodone (Verified Allergy, Intermediate, 08/29/17) ROS Review of System Limited, poor recollection, see HPI PHYSICAL EXAM General: Alert, Oriented X3, Cooperative, No acute distress HEENT: Atraumatic, Mucous membr. moist/pink, Other ([place]) Heart: Regular rate (SR), Normal S1, Normal S2, Other (3/6 systolic murmur to LLS border) Abdomen: Soft, No tenderness Extremities: No cyanosis Skin: No breakdown, No significant lesion Neuro: Normal speech, Sensation intact Psych/Mental Status: Mental status NL, Mood NL MUSCULOSKELETAL: Osteoarthritic changes both hands VITALS VITALS Vital Signs Date Time Temp Pulse Resp B/P (MAP) Pulse Ox O2 Delivery O2 Flow Rate FiO2 12/05/17 08:00 Room Air 12/05/17 07:00 99.2 85 22 131/58 (82) 96 99.2 LABS Lab: Laboratory Tests Test 12/05/17 02:28 12/05/17 03:22 12/05/17 03:30 12/05/17 07:20 Influenza Type A Antigen Negative (NEGATIVE) Influenza Type B Antigen Negative (NEGATIVE) White Blood Count 10.8 x10^3/uL (4.0-11.0) Red Blood Count 3.84 x10^6/uL (4.30-5.70) Hemoglobin 12.2 g/dL (13.0-17.5) Hematocrit 35.4 % (39.0-53.0) Mean Corpuscular Volume 92 fL (79-100) Mean Corpuscular Hemoglobin 32 pg (25-35) Mean Corpuscular Hemoglobin Concent 34 g/dL (31-37) Red Cell Distribution Width 13.6 % (11.5-14.5) Platelet Count 142 x10^3/uL (140-400) Neutrophils (%) (Auto) 81 % (31-73) Lymphocytes (%) (Auto) 9 % (24-48) Monocytes (%) (Auto) 10 % (0-9) Eosinophils (%) (Auto) 0 % (0-3) Basophils (%) (Auto) 0 % (0-3) Neutrophils # (Auto) 8.7 x10^3uL (1.8-7.7) Lymphocytes # (Auto) 1.0 x10^3/uL (1.0-4.8) Monocytes # (Auto) 1.0 x10^3/uL (0.0-1.1) Eosinophils # (Auto) 0.0 x10^3/uL (0.0-0.7) Basophils # (Auto) 0.0 x10^3/uL (0.0-0.2) Prothrombin Time 13.9 SEC (11.7-14.0) Prothromb Time International Ratio 1.1 (0.8-1.1) Activated Partial Thromboplast Time 29 SEC (24-38) Sodium Level 138 mmol/L (136-145) Potassium Level 4.3 mmol/L (3.5-5.1) Chloride Level 102 mmol/L (98-107) Carbon Dioxide Level 29 mmol/L (21-32) Anion Gap 7 (6-14) Blood Urea Nitrogen 24 mg/dL (8-26) Creatinine 1.4 mg/dL (0.7-1.3) Estimated GFR (Cockcroft-Gault) 48.6 BUN/Creatinine Ratio 17 (6-20) Glucose Level 228 mg/dL (70-99) Lactic Acid Level 1.5 mmol/L (0.4-2.0) Calcium Level 8.9 mg/dL (8.5-10.1) Magnesium Level 1.4 mg/dL (1.8-2.4) Total Bilirubin 0.5 mg/dL (0.2-1.0) Aspartate Amino Transf (AST/SGOT) 29 U/L (15-37) Alanine Aminotransferase (ALT/SGPT) 27 U/L (16-63) Alkaline Phosphatase 64 U/L (46-116) Creatine Kinase 785 U/L (39-308) Creatine Kinase MB (Mass) 8.0 ng/mL (0.0-3.6) Creatine Kinase MB Relative Index 1.0 % (0-4) Troponin I Quantitative 0.491 ng/mL (0.000-0.055) 0.899 ng/mL (0.000-0.055) GJ-Kir-Q-Type Natriuretic Peptide 1732 pg/mL (0-449) Total Protein 6.5 g/dL (6.4-8.2) Albumin 3.2 g/dL (3.4-5.0) Albumin/Globulin Ratio 1.0 (1.0-1.7) Triglycerides Level 46 mg/dL (0-150) Cholesterol Level 130 mg/dL (0-200) LDL Cholesterol, Calculated 73 mg/dL (0-100) VLDL Cholesterol, Calculated 9 mg/dL (0-40) Non-HDL Cholesterol Calculated 82 mg/dL (0-129) HDL Cholesterol 48 mg/dL (40-60) Cholesterol/HDL Ratio 2.7 Lipase 112 U/L (73-393) Urine Collection Type Void Urine Color Yellow Urine Clarity Cloudy Urine pH 5.5 Urine Specific [place] 1.025 Urine Protein 30 mg/dL (NEG-TRACE) Urine Glucose (UA) 500 mg/dL (NEG) Urine Ketones (Stick) Negative mg/dL (NEG) Urine Blood Large (NEG) Urine Nitrite Positive (NEG) Urine Bilirubin Negative (NEG) Urine Urobilinogen Dipstick 0.2 mg/dL (0.2 mg/dL) Urine Leukocyte Esterase Large (NEG) Urine RBC 11-20 /HPF (0-2) Urine WBC Tntc /HPF (0-4) Urine Squamous Epithelial Cells Occ /LPF Urine Bacteria Many /HPF (0-FEW) Urine Opiates Screen Neg (NEG) Urine Methadone Screen Neg (NEG) Urine Barbiturates Neg (NEG) Urine Phencyclidine Screen Neg (NEG) Urine Amphetamine/Methamphetamine Neg (NEG) Urine Benzodiazepines Screen Neg (NEG) Urine Cocaine Screen Neg (NEG) Urine Cannabinoids Screen Neg (NEG) Urine Ethyl Alcohol Neg (NEG) ASSESSMENT/PLAN ASSESSMENT/PLAN 1. NSTEMI: Trop at 0.9 . EKG SR with lateral ST depression. Frequent PVCs. 2. HTN: controlled 3. HLP: lipids on goal 4. DM2. 5. Nontraumatic mechanical fall. 6. PAFIB?: currently SR 7. CAD: unclear history 8. suspect CKD3 9. Dementia 10. UTI: per PCP Recommendations 1. Pt is AOx3. LHC discussed, risks and benefits and agreeable to proceed 2. TSH, Lipids, TTE. 3. Replace Mg. 4. Continue ASA for stroke prevention. Likely not a candidate for OAC/NOAC with frequent falls and high risk for injury. 5. Continue with secondary prevention. MAYLIN TORRES MD 12/05/17 1518: CARDIAC CONSULT ASSESSMENT/PLAN ASSESSMENT/PLAN Patient seen and examined. Agree with WEB SERVICES ARCHITECT's assessment and plan. 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 Agree with Aspirin Check 2D echo to assess LV function and rule out valvular abnormalities Thank you for your consultation DEMI BRAVO APRN Dec 05, 2017 10:16 MAYLIN TORRES MD Dec 05, 2017 15:18
[2017-12-05] MEDS ORDERED: LIDOCAINE 1% PF 2 ML VIAL. ONE (11:11)
[2017-12-05] MEDS ORDERED: MAGNESIUM SULFATE 2GM 50 ML IV ONE (11:15)
[2017-12-05] MEDS ORDERED: IODIXANOL 320 MG/ML 100 ML VIAL. ONE ×2 (11:31→12:44)
[2017-12-05] MEDS ORDERED: fentaNYL PF VIAL 100 MCG/2 ML VIAL ONE (11:33)
[2017-12-05] MEDS ORDERED: MIDAZOLAM HCL/PF 2 MG/2 ML VIAL. ONE (11:33)
[2017-12-05] MEDS ORDERED: NITROGLYCERIN 200 MCG/2 ML SYRINGE FOR CATH/VASC LAB. ONE (11:34)
[2017-12-05] MEDS ORDERED: VERAPAMIL 5 MG/2 ML VIAL. ONE (11:34)
[2017-12-05] MEDS ORDERED: HEPARIN for IV BOLUS 10,000 UNIT/10 ML VIAL. ONE (11:34)
[2017-12-05] MEDS ORDERED: IOHEXOL 300 MG/ML 100ML VIAL. ONE (12:17)
[2017-12-05] MEDS ORDERED: BIVALIRUDIN 250 MG VIAL. IV ONE ×2 (12:21→13:00)
[2017-12-05] MEDS ORDERED: IODIXANOL 320 MG/ML 100 ML VIAL. IART ONE (13:00)
[2017-12-05] MEDS ORDERED: LIDOCAINE 1% PF 2 ML VIAL. INJ ONE (13:00)
[2017-12-05] MEDS ORDERED: VERAPAMIL 5 MG/2 ML VIAL. IART ONE (13:00)
[2017-12-05] MEDS ORDERED: HEPARIN for IV BOLUS 10,000 UNIT/10 ML VIAL. IART ONE (13:00)
[2017-12-05] MEDS ORDERED: CLOPIDOGREL BISULFATE 75 MG TABLET PO ONE (13:00)
[2017-12-05] MEDS ORDERED: fentaNYL PF VIAL 100 MCG/2 ML VIAL IV ONE (13:00)
[2017-12-05] MEDS ORDERED: NITROGLYCERIN 200 MCG/2 ML SYRINGE FOR CATH/VASC LAB. IART ONE (13:00)
[2017-12-05] MEDS ORDERED: MIDAZOLAM HCL/PF 2 MG/2 ML VIAL. IV ONE (13:00)
--- NOTE | 2017-12-05 13:01 | PDOC ---
MODERATE SEDATION ASSESSMENT RISKS/ALTERNATIVES Risks/Alternatives Risks and alternatives of this type of sedation and procedure discussed with: RISK/ALTERNATIVES: Patient H & P ON CHART H & P H & P on chart and reviewed for co-morbid conditions and appropriate labs. H&P ON CHART: Yes STATUS PREG STATUS ASSESSED: N/A MEDS/ALLERGIES REVIEWED Meds/Allergies Reviewed Medications and Allergies including time and route of recently administered narcotics and sedatives. MEDS/ALLERGIES REVIEWED: Yes ASA RATING ASA RATING: III AIRWAY ASSESSMENT Airway Assessment Airway patency, oral function limitations, presence of caps, crowns, dentures, partials, and ability to extend neck assessed. AIRWAY ASSESSMENT: Yes MALLAMPATI SCORE MALLAMPATI SCORE: II PRE-SEDATION ASSESSMENT PRE-SEDATION ASSESSMENT: Yes MAYLIN TORRES MD Dec 05, 2017 13:01
[2017-12-05] MEDS ORDERED: CONTRAST GIVEN. MC PRN (13:15)
[2017-12-05] MEDS ORDERED: NITROGLYCERIN SUBLINGUAL 0.4 MG BOTTLE OF 25. SL PRN (13:15)
--- NOTE | 2017-12-05 14:10 | CARD ---
MR#: [id number] Date of Study: 12/05/2017 Ordering Physician: DEMI BRAVO, Referring Physician: SUZETTE ESTRADA Tech: RT Lorenzo (R) APPROVED REPORT Technologist: RT Lorenzo (R) Nurse: Mary Grace Bautista R.N. Procedure(s) performed: 1. Left heart catheterization, selective coronary angiography and left ventr iculography via right transradial approach 2. Successful PCI/drug eluting stent placement to the left main coronary artery 65 mins sedation INDICATION The indication(s) include : non-STEMI . PROCEDURE NARRATIVE After explaining the risks, benefits and alternative options, informed consent was obtained from olesya ent. Patient was brought to the cardiac Travel Administrator and right wrist was prepped and draped in the usual fashion after confirming a positive modified Perez's test. Arterial access was obtained in the righ t radial artery and a 6 American sheath was inserted. 6 American JL 3.5 and 6 American Hill catheters we re used to perform selective angiography of the left and right coronary arteries. The Hill catheter was used to perform left ventriculography. The following findings were noted. FINDINGS 1. Hemodynamics: Left ventricular end-diastolic pressure of 12 mmHg. Pullback gradient of 20 mmHg a cross the aortic valve consistent with mild aortic stenosis. 2. Left ventriculography: Normal left ventricle systolic function with ejection fraction estimated at 55%. No significant mitral regurgitation seen. 3. Coronary angiography: a. The left main coronary artery arose from the left sinus of Valsalva, gave rise to the left anteri or descending and left circumflex arteries and showed 70-80% stenosis involving the ostial segment wi th dampening of the waveform. b. The left anterior descending artery showed calcified 30% stenosis in the midsegment. c. The left circumflex artery did not show any significant stenosis. d. The right coronary artery was a large and dominant vessel arising from the right sinus of Valsalv a that showed minimal luminal irregularities without any significant stenosis. The posterior descendi ng branch showed 40% stenosis in the midsegment. INTERVENTION The left main coronary artery was engaged with 6 American XB 3.5 guide catheter and the stenosis in the ostial segment of the left main coronary artery was crossed with 0.014 inch [employer] guidewire . The lesion was predilated with a 4.5 x 12 mm trek balloon following which this was successfully joaquina ated with 4.5 x 12 mm resolute adam drug-eluting stent. Follow-up angiography showed resolution of th e stenosis with BHUMIKA-3 distal flow. Patient tolerated the procedure well. Hemostasis was achieved usi ng TR band. There were no immediate complications. Conclusion 1. 70-80% stenosis involving the left main coronary artery 2. Successful PCI/drug eluting stent placement to the left main coronary artery 3. Normal left ventricle systolic function with ejection fraction estimated at 55% 4. Mild aortic stenosis Recommendations 1. Aspirin 325 mg daily 2. Plavix 75 mg daily for preferably one year 3. Cardiovascular risk factor modification Signed by : Simeon Patrick, Electronically Approved : 12/05/2017 14:08:56
[2017-12-05] MEDS: IV 1/2 NORMAL SALINE 1,000 ML IV SCH (15:22)
[2017-12-05] MEDS ORDERED: INSU100V SQ (16:23)
[2017-12-05] MEDS: CARVEDILOL 6.25 MG TABLET. PO SCH (17:40)
--- NOTE | 2017-12-05 17:51 | CARD ---
MR#: [id number] Date of Study: 12/05/2017 Ordering Physician: KAITLIN MEDINA, Referring Physician: SUZETTE ESTRADA, Tech: Anh Orozco APPROVED REPORT EXAM: Two-dimensional and M-mode echocardiogram with Doppler and color Doppler. Other Information Quality : AverageHR: 78bpm Rhythm : NSR INDICATION Elevated Troponin 2D DIMENSIONS Left Atrium(2D)4.8 (1.6-4.0cm)IVSd1.1 (0.7-1.1cm) Aortic Root(2D)3.4 (2.0-3.7cm)LVDd5.9 (3.9-5.9cm) LVOT Diameter2.2 (1.8-2.4cm)PWd1.4 (0.7-1.1cm) LVDs4.3 (2.5-4.0cm)FS (%) 27.5 % SV91.2 mlLVEF(%)52.6 (>50%) Aortic Valve AoV Peak Francis.187.0cm/sAoV VTI40.9cm AO Peak GR.14.0mmHgLVOT Peak Francis.84.2cm/s AO Mean GR.7mmHgAVA (VMAX)1.71cm2 Mitral Valve MV E Kmwcuewv954.6cm/sMV DECEL AMGF438be MV A Hbcrmnic462.6cm/sE/A Ratio0.9 Pulmonary Valve PV Peak Miqqedyb176.1cm/s Tricuspid Valve TR P. Vqoiiook070fu/sRAP XJYJOTSI1kfIm TR Peak Gr.11guMuDAXE53phQk LEFT VENTRICLE The left ventricle is normal size. There is borderline concentric left ventricular hypertrophy. The s ystolic function is mildly impaired. EF 45% There is global hypokinesis of the left ventricle. Transm itral Doppler flow pattern is Grade I-abnormal relaxation pattern. RIGHT VENTRICLE The right ventricle is normal size. There is normal right ventricular wall thickness. The right ventr icular systolic function is normal. ATRIA The left atrium is mildly dilated. The right atrium size is normal. The interatrial septum is intact with no evidence for an atrial septal defect or patent foramen ovale as noted on 2-D or Doppler imagi ng. AORTIC VALVE The aortic valve is calcified but opens well. Doppler and Color Flow revealed trace aortic regurgitat ion. Calculated aortic valve area is 2 cm2 with maximum pressure gradient of 14 mmHg and mean pressur e gradient of 8 mmHg. MITRAL VALVE The mitral valve is thickened but opens well. There is no mitral valve stenosis. Doppler and Color-fl ow revealed trace mitral regurgitation. TRICUSPID VALVE The tricuspid valve is normal in structure and function. Doppler and Color Flow revealed no tricuspid valve regurgitation noted. There is no tricuspid valve stenosis. PULMONIC VALVE Doppler and Color Flow revealed trace pulmonic valvular regurgitation. There is no pulmonic valvular stenosis. GREAT VESSELS The aortic root is normal in size. The IVC was not visualized. PERICARDIAL EFFUSION There is no evidence of significant pericardial effusion. Critical Notification Critical Value: No <Conclusion> The systolic function is mildly impaired. EF 45% There is global hypokinesis of the left ventricle. Signed by : Kaitlin Medina, Electronically Approved : 12/05/2017 17:50:21
[2017-12-05] MEDS ORDERED: ATORVASTATIN CALCIUM 20 MG TABLET PO SCH (21:00)
[2017-12-05] MEDS: TAMSULOSIN 0.4 MG CAP.ER.24H. PO SCH (21:11)
[2017-12-05] MEDS: ACETAMINOPHEN 325 MG TABLET. PO PRN (23:44)
[2017-12-06 03:45] VITALS: BP 145/64
[2017-12-06] MEDS: IV 1/2 NORMAL SALINE 1,000 ML IV SCH ×3 (04:23→19:01)
[2017-12-06 07:20] VITALS: BP 165/69
--- NOTE | 2017-12-06 07:27 | PDOC ---
PROGRESS NOTES Chief Complaint Chief Complaint Fall Urinary tract infection NSTEMI Acute renal failure Confusion History of Present Illness History of Present Illness Patient is a 82 yo male presenting to the ED due to fall. States that he was getting out of bed but slipped down onto the floor. Denies head trauma, nor other trauma to any body part as he slid down on the "board". Pt did not lose consciousness. Couldn't get up for 30 minutes but ultimately his sister, with whom he lives, helped him and called the ambulance. Currently states that he feels sick and complains of right arm pain above the elbow. He also states that he vomited after having fallen and that he is nauseous. Denies chest pain, however, has a "heavy" left arm, and was noted with wide QRS and TWI in I and AVL on EKG in ED and troponin elevation to 0.4. CT head, c-spine, CXR, and right humerus x-ray showed no fractures or acute traumatic findings. Cr noted at 1.4 and UA with bacteria, positive LE and nitrites noted as well. Started on empiric antibiotics for UTI, heparin GTT for NSTEMI and admitted for further care. He has hx of CAD but could not remember of any past stents but the [facility] has been a while. Also he was told that he may need a defibrillator by a account liaison hospice in [place] as well and feels he was going to move to [place] to have this done, now states he lives here and is not moving. PMHx HTN, HLP, DM2 and possibly with AFIB, does not recall all his medications because he has some dementia and forgetful. Currently he is AOx3 and presently denies any discomfort. To produce laborer yesterday afternoon - left main stenting. Feeling ok this morning, but having difficulty ambulating. He would like to go home, but cannot stand unaided. Denies CP, SOB today. He is still a bit confused. A/P: Fall - at home, normal imaging. Will get PT/OT to see Urinary tract infection - likely cause of fall, empiric rocephin for now Elevated troponin - likely NSTEMI with a cardiac history, wide QRS, TWI, with increasing troponin. Consult cardiology, heparin GTT Acute renal failure - likely pre-renal, but could be due to some mild obstruction and related to infection. Gentle fluids for now. 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 With his fall and urinary complaints as well as confusion , this is a possibility. Seems oriented to location and month, year, person. Light during day for now. May need neuro consultation Vitals Vitals Vital Signs Date Time Temp Pulse Resp B/P (MAP) Pulse Ox O2 Delivery O2 Flow Rate FiO2 12/06/17 03:45 98.5 84 16 145/64 (91) 95 Room Air 98.5 12/05/17 13:03 2.0 Physical Exam General: Alert, Oriented X3, Cooperative, No acute distress Heart: Regular rate (SR), Normal S1, Normal S2, Other (3/6 systolic murmur to LLS border) Lungs: Clear Abdomen: Soft, No tenderness Extremities: No cyanosis Skin: No breakdown, No significant lesion Labs LABS Laboratory Tests Test 12/05/17 11:30 12/05/17 17:04 12/05/17 20:21 Heparin Anti-Xa Act, Unfractionated 0.26 IU/mL (0.30-0.70) Troponin I Quantitative 1.136 ng/mL (0.000-0.055) Glucose (Fingerstick) 227 mg/dL (70-99) 234 mg/dL (70-99) Assessment and Plan Assessmemt and Plan Problems Medical Problems: (1) Acute UTI Status: Acute (2) Elevated troponin Status: Acute (3) Renal insufficiency Status: Acute (4) Weakness Status: Acute Comment Review of Relevant I have reviewed the following items joshua (where applicable) has been applied. Labs Laboratory Tests Test 12/05/17 02:28 12/05/17 03:22 12/05/17 03:30 12/05/17 07:20 Influenza Type A Antigen Negative (NEGATIVE) Influenza Type B Antigen Negative (NEGATIVE) White Blood Count 10.8 x10^3/uL (4.0-11.0) Red Blood Count 3.84 x10^6/uL (4.30-5.70) Hemoglobin 12.2 g/dL (13.0-17.5) Hematocrit 35.4 % (39.0-53.0) Mean Corpuscular Volume 92 fL (79-100) Mean Corpuscular Hemoglobin 32 pg (25-35) Mean Corpuscular Hemoglobin Concent 34 g/dL (31-37) Red Cell Distribution Width 13.6 % (11.5-14.5) Platelet Count 142 x10^3/uL (140-400) Neutrophils (%) (Auto) 81 % (31-73) Lymphocytes (%) (Auto) 9 % (24-48) Monocytes (%) (Auto) 10 % (0-9) Eosinophils (%) (Auto) 0 % (0-3) Basophils (%) (Auto) 0 % (0-3) Neutrophils # (Auto) 8.7 x10^3uL (1.8-7.7) Lymphocytes # (Auto) 1.0 x10^3/uL (1.0-4.8) Monocytes # (Auto) 1.0 x10^3/uL (0.0-1.1) Eosinophils # (Auto) 0.0 x10^3/uL (0.0-0.7) Basophils # (Auto) 0.0 x10^3/uL (0.0-0.2) Prothrombin Time 13.9 SEC (11.7-14.0) Prothromb Time International Ratio 1.1 (0.8-1.1) Activated Partial Thromboplast Time 29 SEC (24-38) Sodium Level 138 mmol/L (136-145) Potassium Level 4.3 mmol/L (3.5-5.1) Chloride Level 102 mmol/L (98-107) Carbon Dioxide Level 29 mmol/L (21-32) Anion Gap 7 (6-14) Blood Urea Nitrogen 24 mg/dL (8-26) Creatinine 1.4 mg/dL (0.7-1.3) Estimated GFR (Cockcroft-Gault) 48.6 BUN/Creatinine Ratio 17 (6-20) Glucose Level 228 mg/dL (70-99) Lactic Acid Level 1.5 mmol/L (0.4-2.0) Calcium Level 8.9 mg/dL (8.5-10.1) Magnesium Level 1.4 mg/dL (1.8-2.4) Total Bilirubin 0.5 mg/dL (0.2-1.0) Aspartate Amino Transf (AST/SGOT) 29 U/L (15-37) Alanine Aminotransferase (ALT/SGPT) 27 U/L (16-63) Alkaline Phosphatase 64 U/L (46-116) Creatine Kinase 785 U/L (39-308) Creatine Kinase MB (Mass) 8.0 ng/mL (0.0-3.6) Creatine Kinase MB Relative Index 1.0 % (0-4) Troponin I Quantitative 0.491 ng/mL (0.000-0.055) 0.899 ng/mL (0.000-0.055) NU-Znm-C-Type Natriuretic Peptide 1732 pg/mL (0-449) Total Protein 6.5 g/dL (6.4-8.2) Albumin 3.2 g/dL (3.4-5.0) Albumin/Globulin Ratio 1.0 (1.0-1.7) Triglycerides Level 46 mg/dL (0-150) Cholesterol Level 130 mg/dL (0-200) LDL Cholesterol, Calculated 73 mg/dL (0-100) VLDL Cholesterol, Calculated 9 mg/dL (0-40) Non-HDL Cholesterol Calculated 82 mg/dL (0-129) HDL Cholesterol 48 mg/dL (40-60) Cholesterol/HDL Ratio 2.7 Lipase 112 U/L (73-393) Urine Collection Type Void Urine Color Yellow Urine Clarity Cloudy Urine pH 5.5 Urine Specific [place] 1.025 Urine Protein 30 mg/dL (NEG-TRACE) Urine Glucose (UA) 500 mg/dL (NEG) Urine Ketones (Stick) Negative mg/dL (NEG) Urine Blood Large (NEG) Urine Nitrite Positive (NEG) Urine Bilirubin Negative (NEG) Urine Urobilinogen Dipstick 0.2 mg/dL (0.2 mg/dL) Urine Leukocyte Esterase Large (NEG) Urine RBC 11-20 /HPF (0-2) Urine WBC Tntc /HPF (0-4) Urine Squamous Epithelial Cells Occ /LPF Urine Bacteria Many /HPF (0-FEW) Urine Opiates Screen Neg (NEG) Urine Methadone Screen Neg (NEG) Urine Barbiturates Neg (NEG) Urine Phencyclidine Screen Neg (NEG) Urine Amphetamine/Methamphetamine Neg (NEG) Urine Benzodiazepines Screen Neg (NEG) Urine Cocaine Screen Neg (NEG) Urine Cannabinoids Screen Neg (NEG) Urine Ethyl Alcohol Neg (NEG) Test 12/05/17 11:30 12/05/17 17:04 12/05/17 20:21 Heparin Anti-Xa Act, Unfractionated 0.26 IU/mL (0.30-0.70) Troponin I Quantitative 1.136 ng/mL (0.000-0.055) Glucose (Fingerstick) 227 mg/dL (70-99) 234 mg/dL (70-99) Laboratory Tests Test 12/05/17 11:30 12/05/17 17:04 12/05/17 20:21 Heparin Anti-Xa Act, Unfractionated 0.26 IU/mL (0.30-0.70) Troponin I Quantitative 1.136 ng/mL (0.000-0.055) Glucose (Fingerstick) 227 mg/dL (70-99) 234 mg/dL (70-99) Medications Current Medications Sodium Chloride 1,000 ml @ 1,000 mls/hr 1X ONCE IV Last administered on 12/05at 02:55; Start 12/05/17 at 02:30; Stop 12/05/17 at 03:29; Status DC Ondansetron HCl (Zofran) 4 mg 1X ONCE IV Last administered on 12/05/17at 02:48 ; Start 12/05/17 at 02:30; Stop 12/05/17 at 02:31; Status DC Famotidine (Pepcid Vial) 20 mg 1X ONCE IVP Last administered on 12/05/17at 02: 49; Start 12/05/17 at 02:30; Stop 12/05/17 at 02:31; Status DC Ceftriaxone Sodium 50 ml @ 100 mls/hr 1X ONCE IV Last administered on at 04:29; Start 12/05/17 at 04:30; Stop 12/05/17 at 04:59; Status DC Heparin Sodium (Porcine) (Heparin Sodium) 4,000 unit 1X ONCE IV Last administered on 12/05/17at 04:24; Start 12/05/17 at 04:30; Stop 12/05/17 at 13 :04; Status DC Heparin Sodium/ Dextrose 500 ml @ 0 mls/hr CONT PRN IV SEE I/O RECORD Last administered on 12/05/17at 04:40; Start 12/05/17 at 04:15; Stop 12/05/17 at 13 :04; Status DC Aspirin (Marilee Aspirin) 325 mg 1X ONCE PO Last administered on 12/05/17at 04: 31; Start 12/05/17 at 05:00; Stop 12/05/17 at 05:01; Status DC Ondansetron HCl (Zofran) 4 mg PRN Q8HRS PRN IV NAUSEA/VOMITING 1ST CHOICE; Start 12/05/17 at 04:30; Stop 12/06/17 at 04:29; Status DC Fentanyl Citrate (Fentanyl 2ml Vial) 50 mcg PRN Q2HR PRN IV SEVERE PAIN; Start 12/05/17 at 04:30; Stop 12/06/17 at 04:29; Status DC Insulin Human Lispro (HumaLOG) 0-5 UNITS TIDWMEALS SQ Last administered on at 17:42; Start 12/05/17 at 08:00 Dextrose (Dextrose 50%-Water Syringe) 12.5 gm PRN Q15MIN PRN IV SEE COMMENTS; Start 12/05/17 at 04:30 Influenza Virus Vaccine (Afluria Trivalent 1262-1410 Syringe) 0.5 ml ONCE ONCE VAX IM Last administered on 12/05/17at 15:18; Start 12/05/17 at 09:00; Stop 12/05/17 at 09:01; Status DC Sodium Chloride 1,000 ml @ 75 mls/hr 1X ONCE IV Last administered on at 11:31; Start 12/05/17 at 10:15; Stop 12/05/17 at 23:34; Status DC Magnesium Sulfate 50 ml @ 25 mls/hr 1X ONCE IV Last administered on at 15:13; Start 12/05/17 at 11:15; Stop 12/05/17 at 13:14; Status DC Lidocaine HCl (Xylocaine-Mpf 1% 2ml Vial) 2 ml STK-MED ONCE .ROUTE ; Start at 11:11; Stop 12/05/17 at 11:12; Status DC Heparin Sodium/ Sodium Chloride 500 ml @ As Directed STK-MED ONCE .ROUTE ; Start 12/05/17 at 11:11; Stop 12/05/17 at 11:12; Status DC Iodixanol (Visipaque 320) 100 ml STK-MED ONCE .ROUTE ; Start 12/05/17 at 11:31 ; Stop 12/05/17 at 11:32; Status DC Fentanyl Citrate (Fentanyl 2ml Vial) 100 mcg STK-MED ONCE .ROUTE ; Start at 11:33; Stop 12/05/17 at 11:34; Status DC Midazolam HCl (Versed) 2 mg STK-MED ONCE .ROUTE ; Start 12/05/17 at 11:33; Stop 12/05/17 at 11:34; Status DC Verapamil HCl (Verapamil) 5 mg STK-MED ONCE .ROUTE ; Start 12/05/17 at 11:34; Stop 12/05/17 at 11:35; Status DC Heparin Sodium (Porcine) (Heparin Sodium) 10,000 unit STK-MED ONCE .ROUTE ; Start 12/05/17 at 11:34; Stop 12/05/17 at 11:35; Status DC Nitroglycerin (Nitroglycerin) 200 mcg STK-MED ONCE .ROUTE ; Start 12/05/17 at 11:34; Stop 12/05/17 at 11:35; Status DC Iohexol (Omnipaque 300 Mg/ml) 100 ml STK-MED ONCE .ROUTE ; Start 12/05/17 at 12 :17; Stop 12/05/17 at 12:18; Status DC Bivalirudin (Angiomax) 250 mg STK-MED ONCE IV ; Start 12/05/17 at 12:21; Stop 12/05/17 at 12:22; Status DC Iodixanol (Visipaque 320) 100 ml STK-MED ONCE .ROUTE ; Start 12/05/17 at 12:44 ; Stop 12/05/17 at 12:45; Status DC Nitroglycerin (Nitroglycerin) 200 mcg 1X ONCE IART Last administered on at 13:00; Start 12/05/17 at 13:00; Stop 12/05/17 at 13:13; Status DC Verapamil HCl (Verapamil) 2.5 mg 1X ONCE IART Last administered on 12/05/17at 13:00; Start 12/05/17 at 13:00; Stop 12/05/17 at 13:13; Status DC Heparin Sodium (Porcine) (Heparin Sodium) 2,500 unit 1X ONCE IART Last administered on 12/05/17at 13:00; Start 12/05/17 at 13:00; Stop 12/05/17 at 13 :13; Status DC Heparin Sodium/ Sodium Chloride (HEPARIN for ARTERIAL LINE FLUSH) 1,000 unit 1X ONCE IART Last administered on 12/05/17at 13:00; Start 12/05/17 at 13:00; Stop 12/05/17 at 13:13; Status DC Midazolam HCl (Versed) 2 mg 1X ONCE IV Last administered on 12/05/17at 13:00; Start 12/05/17 at 13:00; Stop 12/05/17 at 13:13; Status DC Fentanyl Citrate (Fentanyl 2ml Vial) 100 mcg 1X ONCE IV Last administered on 12/05/17at 13:00; Start 12/05/17 at 13:00; Stop 12/05/17 at 13:13; Status DC Iodixanol (Visipaque 320) 100 ml 1X ONCE IART Last administered on 12/05/17at 13:00; Start 12/05/17 at 13:00; Stop 12/05/17 at 13:13; Status DC Bivalirudin (Angiomax) 250 mg 1X ONCE IV Last administered on 12/05/17at 13:00 ; Start 12/05/17 at 13:00; Stop 12/05/17 at 13:13; Status DC Clopidogrel Bisulfate (Plavix) 600 mg 1X ONCE PO Last administered on at 13:00; Start 12/05/17 at 13:00; Stop 12/05/17 at 13:13; Status DC Lidocaine HCl (Xylocaine-Mpf 1% 2ml Vial) 2 ml 1X ONCE INJ Last administered on 12/05/17at 13:00; Start 12/05/17 at 13:00; Stop 12/05/17 at 13:13; Status DC Info (CONTRAST GIVEN -- Rx MONITORING) 1 each PRN DAILY PRN MC SEE COMMENTS; Start 12/05/17 at 13:15; Stop 12/07/17 at 13:14 Sodium Chloride 1,000 ml @ 100 mls/hr Q10H IV Last administered on 12/06/17at 04:23; Start 12/05/17 at 13:01 Aspirin (Ecotrin) 325 mg DAILYWBKFT PO ; Start 12/06/17 at 08:00 Clopidogrel Bisulfate (Plavix) 75 mg DAILYWBKFT PO ; Start 12/06/17 at 08:00 Atorvastatin Calcium (Lipitor) 20 mg QHS PO Last administered on 12/05/17at 21: 11; Start 12/05/17 at 21:00 Acetaminophen (Tylenol) 650 mg PRN Q6HRS PRN PO MILD PAIN / TEMP Last administered on 12/05/17at 23:44; Start 12/05/17 at 13:15 Nitroglycerin (Nitrostat) 0.4 mg PRN Q5MIN PRN SL CHEST PAIN; Start 12/05/17 at 13:15 Ceftriaxone Sodium (Rocephin) 1 gm Q24H IVP ; Start 12/06/17 at 08:00 Carvedilol (Coreg) 6.25 mg BIDWMEALS PO Last administered on 12/05/17at 17:40; Start 12/05/17 at 17:00 Citalopram Hydrobromide (CeleXA) 20 mg DAILY PO ; Start 12/06/17 at 09:00 Tamsulosin HCl (Flomax) 0.4 mg HS PO Last administered on 12/05/17at 21:11; Start 12/05/17 at 21:00 Memantine (Namenda) 10 mg DAILY PO ; Start 12/06/17 at 09:00 Active Scripts Active Reported Humalog (Insulin Lispro) 100 Unit/1 Ml Vial 20 Unit SQ TIDBFRMEAL Cefpodoxime Proxetil 200 Mg Tablet 1 Tab PO BID 7 Days Citalopram Hbr (Citalopram Hydrobromide) 20 Mg Tablet 1 Tab PO DAILY Terazosin Hcl 5 Mg Capsule 1 Cap PO QHS Coreg (Carvedilol) 6.25 Mg Tablet 1 Tab PO BID Lantus Solostar (Insulin Glargine,Hum.rec.anlog) 100 Unit/1 Ml Insuln.pen 60 Unit SQ DAILY Tamsulosin Hcl 0.4 Mg Cap.er.24h 0.4 Mg PO HS Protonix (Pantoprazole Sodium) 20 Mg Tablet.dr 40 Mg PO DAILY Namenda (Memantine Hcl) 10 Mg Tablet 10 Mg PO DAILY Vitals/I & O Vital Sign - Last 24 Hours 12/05/17 12/05/17 12/05/17 12/05/17 08:00 11:00 13:00 13:00 Temp 99.5 99.5 Pulse 84 75 Resp 20 15 B/P (MAP) 126/63 (84) Pulse Ox 99 O2 Delivery Room Air Room Air 12/05/17 12/05/17 12/05/1716/18 13:03 13:22 13:52 14:07 Pulse 58 79 74 77 Resp 13 B/P (MAP) 138/61 (86) 142/62 (88) 140/64 (89) Pulse Ox 96 O2 Delivery Nasal Cannula O2 Flow Rate 2.0 12/05/17 12/05/17 12/05/17 12/05/17 14:22 14:37 14:52 15:00 Pulse 78 75 72 86 Resp 22 B/P (MAP) 145/60 (88) 125/58 (80) 115/52 (73) 118/59 (78) Pulse Ox 99 O2 Delivery Room Air 12/05/17 12/05/17 12/05/17 12/05/17 15:07 15:22 15:24 15:45 Pulse 76 80 86 B/P (MAP) 141/67 (91) 134/61 (85) 118/59 (78) Pulse Ox 96 O2 Delivery Room Air 12/05/17 12/05/17 12/05/17 12/05/17 17:40 19:20 19:50 23:36 Temp 99.2 101.7 99.2 101.7 Pulse 86 96 96 Resp 16 16 B/P (MAP) 118/59 158/70 (99) 148/62 (90) Pulse Ox 96 94 O2 Delivery Room Air Room Air Room Air 12/06/17 03:45 Temp 98.5 98.5 Pulse 84 Resp 16 B/P (MAP) 145/64 (91) Pulse Ox 95 O2 Delivery Room Air Intake and Output 12/05/17 12/05/17 12/06/17 15:00 23:00 07:00 Intake Total 1250 ml 100 ml Output Total 250 ml Balance 1000 ml 100 ml MODE RAMOS MD Dec 06, 2017 07:27
[2017-12-06] MEDS ORDERED: cefTRIAXone IV Push 1 GM VIAL. IVP SCH (08:00)
[2017-12-06 08:47] LABS: CALCIUM 8.5 mg/dL (8.5-10.1); CREATININE 1.4 mg/dL (0.7-1.3); GFR 48.6; MAGNESIUM 1.7 mg/dL (1.8-2.4); POTASSIUM 4.1 mmol/L (3.5-5.1)
[2017-12-06] MEDS: MEMANTINE 10 MG TABLET. PO SCH (09:23)
[2017-12-06] MEDS: CARVEDILOL 6.25 MG TABLET. PO SCH ×2 (09:23→18:32)
[2017-12-06] MEDS: CITALOPRAM 20 MG TABLET. PO SCH (09:23)
[2017-12-06] MEDS: CLOPIDOGREL BISULFATE 75 MG TABLET PO SCH (09:23)
[2017-12-06] MEDS: ASPIRIN ENTERIC COATED 325 MG TABLET.DR. PO SCH (09:23)
[2017-12-06] MEDS: INSULIN LISPRO 300 UNITS/3 ML INSULN.PEN. SQ SCH ×3 (09:32→17:00)
[2017-12-06] MEDS ORDERED: MAGNESIUM SULFATE 2GM 50 ML IV ONE (10:00)
--- NOTE | 2017-12-06 11:19 | PDOC ---
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 12/06/17 1119: CARDIO Progress Notes Date and Time Date of Service 12/06/2017 Time of Evaluation 1100 Subjective Subjective: No Chest Pain, No shortness of breath, No Palpitations, Other (no discomfort) Vitals Vitals Vital Signs Date Time Temp Pulse Resp B/P (MAP) Pulse Ox O2 Delivery O2 Flow Rate FiO2 12/06/17 09:23 108 165/69 12/06/17 07:20 98.9 16 97 Room Air 98.9 12/05/17 13:03 2.0 Weight Weight [ ] Input and Output Intake and Output Intake and Output 12/06/17 07:00 Intake Total 1350 ml Output Total 250 ml Balance 1100 ml Intake Oral 1350 ml Output Urine Total 250 ml # Voids 2 Laboratory Labs Laboratory Tests Test 12/05/17 11:30 12/05/17 17:04 12/05/17 20:21 12/06/17 07:45 Heparin Anti-Xa Act, Unfractionated 0.26 IU/mL (0.30-0.70) Troponin I Quantitative 1.136 ng/mL (0.000-0.055) Glucose (Fingerstick) 227 mg/dL (70-99) 234 mg/dL (70-99) 175 mg/dL (70-99) Test 12/06/17 08:15 Sodium Level 138 mmol/L (136-145) Potassium Level 4.1 mmol/L (3.5-5.1) Chloride Level 101 mmol/L (98-107) Carbon Dioxide Level 27 mmol/L (21-32) Anion Gap 10 (6-14) Blood Urea Nitrogen 15 mg/dL (8-26) Creatinine 1.4 mg/dL (0.7-1.3) Estimated GFR (Cockcroft-Gault) 48.6 Glucose Level 186 mg/dL (70-99) Calcium Level 8.5 mg/dL (8.5-10.1) Magnesium Level 1.7 mg/dL (1.8-2.4) Troponin I Quantitative 1.497 ng/mL (0.000-0.055) Physical Exam HEENT: Neck Supple W Full Motion Chest: Symmetric LUNGS: Clear to Auscultation Heart: S1S2, RRR (SR), irregularly irregular Abdomen: Soft N/T Extremities: No Calf Tenderness Neurology: alert, oriented, follow commands Assessment Assessment 1. NSTEMI; S/P PCI/PAM to LM 2. HTN: controlled 3. HLP: lipids on goal 4. DM2. 5. Nontraumatic mechanical fall. 6. PAFIB?: currently SR, no episodes of AFIB 7. CAD 8. suspect CKD3 9. Dementia 10. UTI with fever: per PCP 11. Mild ICM: EF 45% Recommendations 1. Start on lisinopril. intensify statin. ASA/plavix. Cardiac rehab. Will consider increasing coreg pending BP trend 2. Replace Mg. Follow up in office in 4 weeks. Agree with SNU 3. Continue ASA for stroke prevention. Likely not a candidate for OAC/NOAC with frequent falls and high risk for injury. 4. Continue with secondary prevention. MAYLIN TORRES MD 12/06/17 1644: CARDIO Progress Notes Assessment Assessment Patient seen and examined. Agree with LICENSED MENTAL HEALTH COUNSELOR's assessment and plan. s/p PCI/PAM to left main coronary artery yesterday, doing well. Continue current medications including dual antiplatelet therapy. DEMI BRAVO APRN Dec 06, 2017 11:19 MAYLIN TORRES MD Dec 06, 2017 16:44
[2017-12-06 11:30] VITALS: BP 127/55
[2017-12-06] MEDS: LISINOPRIL 5 MG TABLET. PO SCH (14:07)
[2017-12-06 14:55] VITALS: BP 127/52
[2017-12-06 19:46] VITALS: BP 136/52
[2017-12-06] MEDS: ATORVASTATIN CALCIUM 40 MG TABLET. PO SCH (21:23)
[2017-12-06] MEDS: CEFPODOXIME PROXETIL 100 MG TABLET. PO SCH (21:23)
[2017-12-06] MEDS: TAMSULOSIN 0.4 MG CAP.ER.24H. PO SCH (21:23)
[2017-12-06 23:49] VITALS: BP 145/59
[2017-12-07 02:58] VITALS: BP 122/62
[2017-12-07] MEDS: IV 1/2 NORMAL SALINE 1,000 ML IV SCH (05:01)
[2017-12-07 07:00] VITALS: BP 149/61
--- NOTE | 2017-12-07 07:41 | PDOC ---
PROGRESS NOTES Chief Complaint Chief Complaint Fall Urinary tract infection NSTEMI Acute renal failure Confusion History of Present Illness History of Present Illness Patient is a 82 yo male presenting to the ED due to fall. States that he was getting out of bed but slipped down onto the floor. Denies head trauma, nor other trauma to any body part as he slid down on the "board". Pt did not lose consciousness. Couldn't get up for 30 minutes but ultimately his sister, with whom he lives, helped him and called the ambulance. Currently states that he feels sick and complains of right arm pain above the elbow. He also states that he vomited after having fallen and that he is nauseous. Denies chest pain, however, has a "heavy" left arm, and was noted with wide QRS and TWI in I and AVL on EKG in ED and troponin elevation to 0.4. CT head, c-spine, CXR, and right humerus x-ray showed no fractures or acute traumatic findings. Cr noted at 1.4 and UA with bacteria, positive LE and nitrites noted as well. Started on empiric antibiotics for UTI, heparin GTT for NSTEMI and admitted for further care. He has hx of CAD but could not remember of any past stents but the [facility] has been a while. 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 PMHx HTN, HLP, DM2 and possibly with AFIB, does not recall all his medications because he has some dementia and forgetful. Currently he is AOx3 and presently denies any discomfort. To [employer] 12/05 afternoon - left main stenting. No overnight events. Feeling ok this morning, but having difficulty ambulating. He would like to go home, but cannot stand unaided. Denies CP, SOB today. He is still a bit confused. Urine returns with [id number] colonies GNR A/P: Fall - at home, normal imaging. Will get PT/OT to continue to see Urinary tract infection - likely cause of fall, empiric rocephin for now NSTEMI - with a cardiac history, wide QRS, TWI, with increasing troponin. Consult cardiology, heparin GTT. Post stent protocol Acute renal failure - likely pre-renal, but could be due to some mild obstruction and related to infection. Gentle fluids for now. 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 With his fall and urinary complaints as well as confusion , this is a possibility. Seems oriented to location and month, year, person. Light during day for now. May need neuro consultation Diet - Cardiac PPX - heparin DNR/DNI Inpatient for UTI treatment, needs skilled services on d/c home. Vitals Vitals Vital Signs Date Time Temp Pulse Resp B/P (MAP) Pulse Ox O2 Delivery O2 Flow Rate FiO2 12/07/17 02:58 99.4 79 18 122/62 (82) 94 Room Air 99.4 Physical Exam General: Alert, Oriented X3, Cooperative, No acute distress Heart: Regular rate (SR), Normal S1, Normal S2, Other (3/6 systolic murmur to LLS border) Lungs: Clear Abdomen: Soft, No tenderness Extremities: No cyanosis Skin: No breakdown, No significant lesion Labs LABS Laboratory Tests Test 12/06/17 07:45 12/06/17 08:15 12/06/17 11:44 12/06/17 17:05 Glucose (Fingerstick) 175 mg/dL (70-99) 224 mg/dL (70-99) 186 mg/dL (70-99) Sodium Level 138 mmol/L (136-145) Potassium Level 4.1 mmol/L (3.5-5.1) Chloride Level 101 mmol/L (98-107) Carbon Dioxide Level 27 mmol/L (21-32) Anion Gap 10 (6-14) Blood Urea Nitrogen 15 mg/dL (8-26) Creatinine 1.4 mg/dL (0.7-1.3) Estimated GFR (Cockcroft-Gault) 48.6 Glucose Level 186 mg/dL (70-99) Calcium Level 8.5 mg/dL (8.5-10.1) Magnesium Level 1.7 mg/dL (1.8-2.4) Troponin I Quantitative 1.497 ng/mL (0.000-0.055) Test 12/06/17 20:44 Glucose (Fingerstick) 163 mg/dL (70-99) Assessment and Plan Assessmemt and Plan Problems Medical Problems: (1) Acute UTI Status: Acute (2) Elevated troponin Status: Acute (3) Renal insufficiency Status: Acute (4) Weakness Status: Acute Comment Review of Relevant I have reviewed the following items joshua (where applicable) has been applied. Labs Laboratory Tests Test 12/05/17 11:30 12/05/17 17:04 12/05/17 20:21 12/06/17 07:45 Heparin Anti-Xa Act, Unfractionated 0.26 IU/mL (0.30-0.70) Troponin I Quantitative 1.136 ng/mL (0.000-0.055) Glucose (Fingerstick) 227 mg/dL (70-99) 234 mg/dL (70-99) 175 mg/dL (70-99) Test 12/06/17 08:15 12/06/17 11:44 12/06/17 17:05 12/06/17 20:44 Sodium Level 138 mmol/L (136-145) Potassium Level 4.1 mmol/L (3.5-5.1) Chloride Level 101 mmol/L (98-107) Carbon Dioxide Level 27 mmol/L (21-32) Anion Gap 10 (6-14) Blood Urea Nitrogen 15 mg/dL (8-26) Creatinine 1.4 mg/dL (0.7-1.3) Estimated GFR (Cockcroft-Gault) 48.6 Glucose Level 186 mg/dL (70-99) Calcium Level 8.5 mg/dL (8.5-10.1) Magnesium Level 1.7 mg/dL (1.8-2.4) Troponin I Quantitative 1.497 ng/mL (0.000-0.055) Glucose (Fingerstick) 224 mg/dL (70-99) 186 mg/dL (70-99) 163 mg/dL (70-99) Laboratory Tests Test 12/06/17 07:45 12/06/17 08:15 12/06/17 11:44 12/06/17 17:05 Glucose (Fingerstick) 175 mg/dL (70-99) 224 mg/dL (70-99) 186 mg/dL (70-99) Sodium Level 138 mmol/L (136-145) Potassium Level 4.1 mmol/L (3.5-5.1) Chloride Level 101 mmol/L (98-107) Carbon Dioxide Level 27 mmol/L (21-32) Anion Gap 10 (6-14) Blood Urea Nitrogen 15 mg/dL (8-26) Creatinine 1.4 mg/dL (0.7-1.3) Estimated GFR (Cockcroft-Gault) 48.6 Glucose Level 186 mg/dL (70-99) Calcium Level 8.5 mg/dL (8.5-10.1) Magnesium Level 1.7 mg/dL (1.8-2.4) Troponin I Quantitative 1.497 ng/mL (0.000-0.055) Test 12/06/17 20:44 Glucose (Fingerstick) 163 mg/dL (70-99) Microbiology 12/05/17 Urine Culture - Preliminary, Resulted 12/05/17 Urine Culture Result 1 (GUMARO) - Preliminary, Resulted Medications Current Medications Sodium Chloride 1,000 ml @ 1,000 mls/hr 1X ONCE IV Last administered on 12/05at 02:55; Start 12/05/17 at 02:30; Stop 12/05/17 at 03:29; Status DC Ondansetron HCl (Zofran) 4 mg 1X ONCE IV Last administered on 12/05/17at 02:48 ; Start 12/05/17 at 02:30; Stop 12/05/17 at 02:31; Status DC Famotidine (Pepcid Vial) 20 mg 1X ONCE IVP Last administered on 12/05/17at 02: 49; Start 12/05/17 at 02:30; Stop 12/05/17 at 02:31; Status DC Ceftriaxone Sodium 50 ml @ 100 mls/hr 1X ONCE IV Last administered on at 04:29; Start 12/05/17 at 04:30; Stop 12/05/17 at 04:59; Status DC Heparin Sodium (Porcine) (Heparin Sodium) 4,000 unit 1X ONCE IV Last administered on 12/05/17at 04:24; Start 12/05/17 at 04:30; Stop 12/05/17 at 13 :04; Status DC Heparin Sodium/ Dextrose 500 ml @ 0 mls/hr CONT PRN IV SEE I/O RECORD Last administered on 12/05/17at 04:40; Start 12/05/17 at 04:15; Stop 12/05/17 at 13 :04; Status DC Aspirin (Marilee Aspirin) 325 mg 1X ONCE PO Last administered on 12/05/17at 04: 31; Start 12/05/17 at 05:00; Stop 12/05/17 at 05:01; Status DC Ondansetron HCl (Zofran) 4 mg PRN Q8HRS PRN IV NAUSEA/VOMITING 1ST CHOICE; Start 12/05/17 at 04:30; Stop 12/06/17 at 04:29; Status DC Fentanyl Citrate (Fentanyl 2ml Vial) 50 mcg PRN Q2HR PRN IV SEVERE PAIN; Start 12/05/17 at 04:30; Stop 12/06/17 at 04:29; Status DC Insulin Human Lispro (HumaLOG) 0-5 UNITS TIDWMEALS SQ Last administered on at 12:00; Start 12/05/17 at 08:00 Dextrose (Dextrose 50%-Water Syringe) 12.5 gm PRN Q15MIN PRN IV SEE COMMENTS; Start 12/05/17 at 04:30 Influenza Virus Vaccine (Afluria Trivalent [id number] Syringe) 0.5 ml ONCE ONCE VAX IM Last administered on 12/05/17at 15:18; Start 12/05/17 at 09:00; Stop 12/05/17 at 09:01; Status DC Sodium Chloride 1,000 ml @ 75 mls/hr 1X ONCE IV Last administered on at 11:31; Start 12/05/17 at 10:15; Stop 12/05/17 at 23:34; Status DC Magnesium Sulfate 50 ml @ 25 mls/hr 1X ONCE IV Last administered on at 15:13; Start 12/05/17 at 11:15; Stop 12/05/17 at 13:14; Status DC Lidocaine HCl (Xylocaine-Mpf 1% 2ml Vial) 2 ml STK-MED ONCE .ROUTE ; Start at 11:11; Stop 12/05/17 at 11:12; Status DC Heparin Sodium/ Sodium Chloride 500 ml @ As Directed STK-MED ONCE .ROUTE ; Start 12/05/17 at 11:11; Stop 12/05/17 at 11:12; Status DC Iodixanol (Visipaque 320) 100 ml STK-MED ONCE .ROUTE ; Start 12/05/17 at 11:31 ; Stop 12/05/17 at 11:32; Status DC Fentanyl Citrate (Fentanyl 2ml Vial) 100 mcg STK-MED ONCE .ROUTE ; Start at 11:33; Stop 12/05/17 at 11:34; Status DC Midazolam HCl (Versed) 2 mg STK-MED ONCE .ROUTE ; Start 12/05/17 at 11:33; Stop 12/05/17 at 11:34; Status DC Verapamil HCl (Verapamil) 5 mg STK-MED ONCE .ROUTE ; Start 12/05/17 at 11:34; Stop 12/05/17 at 11:35; Status DC Heparin Sodium (Porcine) (Heparin Sodium) 10,000 unit STK-MED ONCE .ROUTE ; Start 12/05/17 at 11:34; Stop 12/05/17 at 11:35; Status DC Nitroglycerin (Nitroglycerin) 200 mcg STK-MED ONCE .ROUTE ; Start 12/05/17 at 11:34; Stop 12/05/17 at 11:35; Status DC Iohexol (Omnipaque 300 Mg/ml) 100 ml STK-MED ONCE .ROUTE ; Start 12/05/17 at 12 :17; Stop 12/05/17 at 12:18; Status DC Bivalirudin (Angiomax) 250 mg STK-MED ONCE IV ; Start 12/05/17 at 12:21; Stop 12/05/17 at 12:22; Status DC Iodixanol (Visipaque 320) 100 ml STK-MED ONCE .ROUTE ; Start 12/05/17 at 12:44 ; Stop 12/05/17 at 12:45; Status DC Nitroglycerin (Nitroglycerin) 200 mcg 1X ONCE IART Last administered on at 13:00; Start 12/05/17 at 13:00; Stop 12/05/17 at 13:13; Status DC Verapamil HCl (Verapamil) 2.5 mg 1X ONCE IART Last administered on 12/05/17at 13:00; Start 12/05/17 at 13:00; Stop 12/05/17 at 13:13; Status DC Heparin Sodium (Porcine) (Heparin Sodium) 2,500 unit 1X ONCE IART Last administered on 12/05/17at 13:00; Start 12/05/17 at 13:00; Stop 12/05/17 at 13 :13; Status DC Heparin Sodium/ Sodium Chloride (HEPARIN for ARTERIAL LINE FLUSH) 1,000 unit 1X ONCE IART Last administered on 12/05/17at 13:00; Start 12/05/17 at 13:00; Stop 12/05/17 at 13:13; Status DC Midazolam HCl (Versed) 2 mg 1X ONCE IV Last administered on 12/05/17at 13:00; Start 12/05/17 at 13:00; Stop 12/05/17 at 13:13; Status DC Fentanyl Citrate (Fentanyl 2ml Vial) 100 mcg 1X ONCE IV Last administered on 12/05/17at 13:00; Start 12/05/17 at 13:00; Stop 12/05/17 at 13:13; Status DC Iodixanol (Visipaque 320) 100 ml 1X ONCE IART Last administered on 12/05/17at 13:00; Start 12/05/17 at 13:00; Stop 12/05/17 at 13:13; Status DC Bivalirudin (Angiomax) 250 mg 1X ONCE IV Last administered on 12/05/17at 13:00 ; Start 12/05/17 at 13:00; Stop 12/05/17 at 13:13; Status DC Clopidogrel Bisulfate (Plavix) 600 mg 1X ONCE PO Last administered on at 13:00; Start 12/05/17 at 13:00; Stop 12/05/17 at 13:13; Status DC Lidocaine HCl (Xylocaine-Mpf 1% 2ml Vial) 2 ml 1X ONCE INJ Last administered on 12/05/17at 13:00; Start 12/05/17 at 13:00; Stop 12/05/17 at 13:13; Status DC Info (CONTRAST GIVEN -- Rx MONITORING) 1 each PRN DAILY PRN MC SEE COMMENTS; Start 12/05/17 at 13:15; Stop 12/07/17 at 13:14 Sodium Chloride 1,000 ml @ 100 mls/hr Q10H IV Last administered on 12/06/17at 04:23; Start 12/05/17 at 13:01 Aspirin (Ecotrin) 325 mg DAILYWBKFT PO Last administered on 12/06/17at 09:23; Start 12/06/17 at 08:00 Clopidogrel Bisulfate (Plavix) 75 mg DAILYWBKFT PO Last administered on at 09:23; Start 12/06/17 at 08:00 Atorvastatin Calcium (Lipitor) 20 mg QHS PO Last administered on 12/05/17at 21: 11; Start 12/05/17 at 21:00; Stop 12/06/17 at 11:19; Status DC Acetaminophen (Tylenol) 650 mg PRN Q6HRS PRN PO MILD PAIN / TEMP Last administered on 12/05/17at 23:44; Start 12/05/17 at 13:15 Nitroglycerin (Nitrostat) 0.4 mg PRN Q5MIN PRN SL CHEST PAIN; Start 12/05/17 at 13:15 Ceftriaxone Sodium (Rocephin) 1 gm Q24H IVP Last administered on 12/06/17at 09: 23; Start 12/06/17 at 08:00; Stop 12/06/17 at 15:28; Status DC Carvedilol (Coreg) 6.25 mg BIDWMEALS PO Last administered on 12/06/17at 18:32; Start 12/05/17 at 17:00 Citalopram Hydrobromide (CeleXA) 20 mg DAILY PO Last administered on at 09:23; Start 12/06/17 at 09:00 Tamsulosin HCl (Flomax) 0.4 mg HS PO Last administered on 12/06/17at 21:23; Start 12/05/17 at 21:00 Memantine (Namenda) 10 mg DAILY PO Last administered on 12/06/17at 09:23; Start 12/06/17 at 09:00 Magnesium Sulfate 50 ml @ 25 mls/hr 1X ONCE IV Last administered on at 11:57; Start 12/06/17 at 10:00; Stop 12/06/17 at 11:59; Status DC Atorvastatin Calcium (Lipitor) 40 mg QHS PO Last administered on 12/06/17at 21: 23; Start 12/06/17 at 21:00 Lisinopril (Prinivil) 5 mg DAILY PO Last administered on 12/06/17at 14:07; Start 12/06/17 at 12:30 Cefpodoxime Proxetil (Vantin) 200 mg BID PO Last administered on 12/06/17at 21: 23; Start 12/06/17 at 21:00 Active Scripts Active Reported Humalog (Insulin Lispro) 100 Unit/1 Ml Vial 20 Unit SQ TIDBFRMEAL Cefpodoxime Proxetil 200 Mg Tablet 1 Tab PO BID 7 Days Citalopram Hbr (Citalopram Hydrobromide) 20 Mg Tablet 1 Tab PO DAILY Terazosin Hcl 5 Mg Capsule 1 Cap PO QHS Coreg (Carvedilol) 6.25 Mg Tablet 1 Tab PO BID Lantus Solostar (Insulin Glargine,Hum.rec.anlog) 100 Unit/1 Ml Insuln.pen 60 Unit SQ DAILY Tamsulosin Hcl 0.4 Mg Cap.er.24h 0.4 Mg PO HS Protonix (Pantoprazole Sodium) 20 Mg Tablet.dr 40 Mg PO DAILY Namenda (Memantine Hcl) 10 Mg Tablet 10 Mg PO DAILY Vitals/I & O Vital Sign - Last 24 Hours 12/06/17 12/06/17 12/06/17 12/06/17 08:00 09:23 11:30 14:07 Temp 99.4 99.4 Pulse 108 94 94 Resp 16 B/P (MAP) 165/69 127/55 (79) 127/55 Pulse Ox 97 O2 Delivery Room Air Room Air 12/06/17 12/06/17 12/06/17 12/06/17 14:55 18:32 19:46 20:00 Temp 98.5 99.7 98.5 99.7 Pulse 84 84 76 Resp 18 16 B/P (MAP) 127/52 (77) 127/52 136/52 (80) Pulse Ox 94 97 O2 Delivery Room Air Room Air Room Air 12/06/17 12/07/17 23:49 02:58 Temp 99.7 99.4 99.7 99.4 Pulse 89 79 Resp 16 18 B/P (MAP) 145/59 (87) 122/62 (82) Pulse Ox 93 94 O2 Delivery Room Air Room Air Intake and Output 12/06/17 12/06/17 12/07/17 15:00 23:00 07:00 Intake Total 800 ml 300 ml Output Total 500 ml 350 ml Balance 300 ml -50 ml MODE RAMOS MD Dec 07, 2017 07:41
[2017-12-07] MEDS: LACTOBACILLUS RHAMNOSUS GG 1 CAPSULE. PO SCH ×2 (08:14→21:23)
[2017-12-07] MEDS: CEFPODOXIME PROXETIL 100 MG TABLET. PO SCH ×2 (08:15→21:23)
[2017-12-07] MEDS: CARVEDILOL 6.25 MG TABLET. PO SCH ×2 (08:15→17:34)
[2017-12-07] MEDS: CITALOPRAM 20 MG TABLET. PO SCH (08:15)
[2017-12-07] MEDS: CLOPIDOGREL BISULFATE 75 MG TABLET PO SCH (08:15)
[2017-12-07] MEDS: ASPIRIN ENTERIC COATED 325 MG TABLET.DR. PO SCH (08:15)
[2017-12-07] MEDS: MEMANTINE 10 MG TABLET. PO SCH (08:16)
[2017-12-07] MEDS: LISINOPRIL 5 MG TABLET. PO SCH (08:16)
[2017-12-07] MEDS: INSULIN LISPRO 300 UNITS/3 ML INSULN.PEN. SQ SCH ×3 (08:21→17:38)
[2017-12-07 11:00] VITALS: BP 137/55
[2017-12-07 15:00] VITALS: BP 119/56
[2017-12-07 19:28] VITALS: BP 140/78
[2017-12-07] MEDS ORDERED: INSULIN LISPRO 300 UNITS/3 ML INSULN.PEN. SQ ONE (21:15)
[2017-12-07] MEDS: TAMSULOSIN 0.4 MG CAP.ER.24H. PO SCH (21:23)
[2017-12-07] MEDS: ACETAMINOPHEN 325 MG TABLET. PO PRN (21:23)
[2017-12-07] MEDS: ATORVASTATIN CALCIUM 40 MG TABLET. PO SCH (21:23)
[2017-12-07] MEDS: INSULIN GLARGINE 300 UNITS/3 ML INSULN.PEN. SQ SCH (21:29)
[2017-12-07 23:31] VITALS: BP 10/61
[2017-12-08 03:55] VITALS: BP 138/58
[2017-12-08 06:53] VITALS: BP 143/67
[2017-12-08] MEDS: LISINOPRIL 5 MG TABLET. PO SCH (08:37)
[2017-12-08] MEDS: CLOPIDOGREL BISULFATE 75 MG TABLET PO SCH (08:37)
[2017-12-08] MEDS: LACTOBACILLUS RHAMNOSUS GG 1 CAPSULE. PO SCH ×2 (08:37→20:15)
[2017-12-08] MEDS: CITALOPRAM 20 MG TABLET. PO SCH (08:37)
[2017-12-08] MEDS: ASPIRIN ENTERIC COATED 325 MG TABLET.DR. PO SCH (08:37)
[2017-12-08] MEDS: CEFPODOXIME PROXETIL 100 MG TABLET. PO SCH ×2 (08:37→20:15)
[2017-12-08] MEDS: MEMANTINE 10 MG TABLET. PO SCH (08:37)
[2017-12-08] MEDS: CARVEDILOL 6.25 MG TABLET. PO SCH ×2 (08:38→17:32)
[2017-12-08] MEDS: INSULIN LISPRO 300 UNITS/3 ML INSULN.PEN. SQ SCH ×4 (08:41→21:35)
[2017-12-08 11:06] VITALS: BP_SYST 138; BP_SYST 143; BP_DIAS 66; BP_DIAS 67
--- NOTE | 2017-12-08 11:39 | PDOC ---
PROGRESS NOTES Chief Complaint Chief Complaint Fall Urinary tract infection NSTEMI Acute renal failure Confusion History of Present Illness History of Present Illness Patient is a 82 yo male presenting to the ED due to fall. States that he was getting out of bed but slipped down onto the floor. Denies head trauma, nor other trauma to any body part as he slid down on the "board". Pt did not lose consciousness. Couldn't get up for 30 minutes but ultimately his sister, with whom he lives, helped him and called the ambulance. Currently states that he feels sick and complains of right arm pain above the elbow. He also states that he vomited after having fallen and that he is nauseous. Denies chest pain, however, has a "heavy" left arm, and was noted with wide QRS and TWI in I and AVL on EKG in ED and troponin elevation to 0.4. CT head, c-spine, CXR, and right humerus x-ray showed no fractures or acute traumatic findings. Cr noted at 1.4 and UA with bacteria, positive LE and nitrites noted as well. Started on empiric antibiotics for UTI, heparin GTT for NSTEMI and admitted for further care. He has hx of CAD but could not remember of any past stents but the [facility] has been a while. 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 PMHx HTN, HLP, DM2 and possibly with AFIB, does not recall all his medications because he has some dementia and forgetful. Currently he is AOx3 and presently denies any discomfort. To lab analyst 12/05 afternoon - left main stenting. No overnight events. Feeling ok this morning, but having difficulty ambulating and has some word finding difficulty and garbled speech occasionally. He would like to go home, but cannot stand unaided. Denies CP, SOB today. He is still a bit confused, apparently per sister he is still not at baseline Urine returns with [id number] colonies GNR of klebsiella, sensitive to Vantin, has Cipro and PCN allergies. A/P: Fall - at home, normal imaging. Will get PT/OT to continue to see Urinary tract infection - likely cause of fall, oral Vantin for klebsiella UTI, will need 2 weeks coverage NSTEMI - with a cardiac history, wide QRS, TWI, with increasing troponin. Consult cardiology, heparin GTT. Post stent protocol Acute renal failure - likely pre-renal, but could be due to some mild obstruction and related to infection. Gentle fluids for now. 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 With his fall and urinary complaints as well as confusion , this is a possibility. Seems oriented to location and month, year, person. Light during day for now. Neuro consultation with worsening status today Diet - Cardiac PPX - heparin DNR/DNI Inpatient for UTI treatment, needs skilled services on d/c home, may still be able to go today, but needs neurology visit. Vitals Vitals Vital Signs Date Time Temp Pulse Resp B/P (MAP) Pulse Ox O2 Delivery O2 Flow Rate FiO2 12/08/17 11:06 98.7 68 18 138/66 (90) 93 Room Air 98.7 12/07/17 08:00 2.0 Physical Exam General: Alert, Oriented X3, Cooperative, No acute distress Heart: Regular rate (SR), Normal S1, Normal S2, Other (3/6 systolic murmur to LLS border) Lungs: Clear Abdomen: Soft, No tenderness Extremities: No cyanosis Skin: No breakdown, No significant lesion Labs LABS Laboratory Tests Test 12/07/17 12:07 12/07/17 17:27 12/07/17 20:40 12/08/17 06:19 Glucose (Fingerstick) 278 mg/dL (70-99) 286 mg/dL (70-99) 323 mg/dL (70-99) 216 mg/dL (70-99) Test 12/08/17 07:11 Glucose (Fingerstick) 215 mg/dL (70-99) Assessment and Plan Assessmemt and Plan Problems Medical Problems: (1) Acute UTI Status: Acute (2) Elevated troponin Status: Acute (3) Renal insufficiency Status: Acute (4) Weakness Status: Acute Comment Review of Relevant I have reviewed the following items joshua (where applicable) has been applied. Labs Laboratory Tests Test 12/06/17 11:44 12/06/17 17:05 12/06/17 20:44 12/07/17 07:56 Glucose (Fingerstick) 224 mg/dL (70-99) 186 mg/dL (70-99) 163 mg/dL (70-99) 171 mg/dL (70-99) Test 12/07/17 12:07 12/07/17 17:27 12/07/17 20:40 12/08/17 06:19 Glucose (Fingerstick) 278 mg/dL (70-99) 286 mg/dL (70-99) 323 mg/dL (70-99) 216 mg/dL (70-99) Test 12/08/17 07:11 Glucose (Fingerstick) 215 mg/dL (70-99) Laboratory Tests Test 12/07/17 12:07 12/07/17 17:27 12/07/17 20:40 12/08/17 06:19 Glucose (Fingerstick) 278 mg/dL (70-99) 286 mg/dL (70-99) 323 mg/dL (70-99) 216 mg/dL (70-99) Test 12/08/17 07:11 Glucose (Fingerstick) 215 mg/dL (70-99) Microbiology 12/05/17 Urine Culture - Final, Complete 12/05/17 Urine Culture Result 1 (GUMARO) - Final, Complete 12/05/17 Antimicrobic Susceptibility - Final, Complete Medications Current Medications Sodium Chloride 1,000 ml @ 1,000 mls/hr 1X ONCE IV Last administered on 12/05at 02:55; Start 12/05/17 at 02:30; Stop 12/05/17 at 03:29; Status DC Ondansetron HCl (Zofran) 4 mg 1X ONCE IV Last administered on 12/05/17at 02:48 ; Start 12/05/17 at 02:30; Stop 12/05/17 at 02:31; Status DC Famotidine (Pepcid Vial) 20 mg 1X ONCE IVP Last administered on 12/05/17at 02: 49; Start 12/05/17 at 02:30; Stop 12/05/17 at 02:31; Status DC Ceftriaxone Sodium 50 ml @ 100 mls/hr 1X ONCE IV Last administered on at 04:29; Start 12/05/17 at 04:30; Stop 12/05/17 at 04:59; Status DC Heparin Sodium (Porcine) (Heparin Sodium) 4,000 unit 1X ONCE IV Last administered on 12/05/17at 04:24; Start 12/05/17 at 04:30; Stop 12/05/17 at 13 :04; Status DC Heparin Sodium/ Dextrose 500 ml @ 0 mls/hr CONT PRN IV SEE I/O RECORD Last administered on 12/05/17at 04:40; Start 12/05/17 at 04:15; Stop 12/05/17 at 13 :04; Status DC Aspirin (Marilee Aspirin) 325 mg 1X ONCE PO Last administered on 12/05/17at 04: 31; Start 12/05/17 at 05:00; Stop 12/05/17 at 05:01; Status DC Ondansetron HCl (Zofran) 4 mg PRN Q8HRS PRN IV NAUSEA/VOMITING 1ST CHOICE; Start 12/05/17 at 04:30; Stop 12/06/17 at 04:29; Status DC Fentanyl Citrate (Fentanyl 2ml Vial) 50 mcg PRN Q2HR PRN IV SEVERE PAIN; Start 12/05/17 at 04:30; Stop 12/06/17 at 04:29; Status DC Insulin Human Lispro (HumaLOG) 0-5 UNITS TIDWMEALS SQ Last administered on at 17:38; Start 12/05/17 at 08:00; Stop 12/07/17 at 21:04; Status DC Dextrose (Dextrose 50%-Water Syringe) 12.5 gm PRN Q15MIN PRN IV SEE COMMENTS; Start 12/05/17 at 04:30 Influenza Virus Vaccine (Afluria Trivalent [id number] Syringe) 0.5 ml ONCE ONCE VAX IM Last administered on 12/05/17at 15:18; Start 12/05/17 at 09:00; Stop 12/05/17 at 09:01; Status DC Sodium Chloride 1,000 ml @ 75 mls/hr 1X ONCE IV Last administered on at 11:31; Start 12/05/17 at 10:15; Stop 12/05/17 at 23:34; Status DC Magnesium Sulfate 50 ml @ 25 mls/hr 1X ONCE IV Last administered on at 15:13; Start 12/05/17 at 11:15; Stop 12/05/17 at 13:14; Status DC Lidocaine HCl (Xylocaine-Mpf 1% 2ml Vial) 2 ml STK-MED ONCE .ROUTE ; Start at 11:11; Stop 12/05/17 at 11:12; Status DC Heparin Sodium/ Sodium Chloride 500 ml @ As Directed STK-MED ONCE .ROUTE ; Start 12/05/17 at 11:11; Stop 12/05/17 at 11:12; Status DC Iodixanol (Visipaque 320) 100 ml STK-MED ONCE .ROUTE ; Start 12/05/17 at 11:31 ; Stop 12/05/17 at 11:32; Status DC Fentanyl Citrate (Fentanyl 2ml Vial) 100 mcg STK-MED ONCE .ROUTE ; Start at 11:33; Stop 12/05/17 at 11:34; Status DC Midazolam HCl (Versed) 2 mg STK-MED ONCE .ROUTE ; Start 12/05/17 at 11:33; Stop 12/05/17 at 11:34; Status DC Verapamil HCl (Verapamil) 5 mg STK-MED ONCE .ROUTE ; Start 12/05/17 at 11:34; Stop 12/05/17 at 11:35; Status DC Heparin Sodium (Porcine) (Heparin Sodium) 10,000 unit STK-MED ONCE .ROUTE ; Start 12/05/17 at 11:34; Stop 12/05/17 at 11:35; Status DC Nitroglycerin (Nitroglycerin) 200 mcg STK-MED ONCE .ROUTE ; Start 12/05/17 at 11:34; Stop 12/05/17 at 11:35; Status DC Iohexol (Omnipaque 300 Mg/ml) 100 ml STK-MED ONCE .ROUTE ; Start 12/05/17 at 12 :17; Stop 12/05/17 at 12:18; Status DC Bivalirudin (Angiomax) 250 mg STK-MED ONCE IV ; Start 12/05/17 at 12:21; Stop 12/05/17 at 12:22; Status DC Iodixanol (Visipaque 320) 100 ml STK-MED ONCE .ROUTE ; Start 12/05/17 at 12:44 ; Stop 12/05/17 at 12:45; Status DC Nitroglycerin (Nitroglycerin) 200 mcg 1X ONCE IART Last administered on at 13:00; Start 12/05/17 at 13:00; Stop 12/05/17 at 13:13; Status DC Verapamil HCl (Verapamil) 2.5 mg 1X ONCE IART Last administered on 12/05/17at 13:00; Start 12/05/17 at 13:00; Stop 12/05/17 at 13:13; Status DC Heparin Sodium (Porcine) (Heparin Sodium) 2,500 unit 1X ONCE IART Last administered on 12/05/17at 13:00; Start 12/05/17 at 13:00; Stop 12/05/17 at 13 :13; Status DC Heparin Sodium/ Sodium Chloride (HEPARIN for ARTERIAL LINE FLUSH) 1,000 unit 1X ONCE IART Last administered on 12/05/17at 13:00; Start 12/05/17 at 13:00; Stop 12/05/17 at 13:13; Status DC Midazolam HCl (Versed) 2 mg 1X ONCE IV Last administered on 12/05/17at 13:00; Start 12/05/17 at 13:00; Stop 12/05/17 at 13:13; Status DC Fentanyl Citrate (Fentanyl 2ml Vial) 100 mcg 1X ONCE IV Last administered on 12/05/17at 13:00; Start 12/05/17 at 13:00; Stop 12/05/17 at 13:13; Status DC Iodixanol (Visipaque 320) 100 ml 1X ONCE IART Last administered on 12/05/17at 13:00; Start 12/05/17 at 13:00; Stop 12/05/17 at 13:13; Status DC Bivalirudin (Angiomax) 250 mg 1X ONCE IV Last administered on 12/05/17at 13:00 ; Start 12/05/17 at 13:00; Stop 12/05/17 at 13:13; Status DC Clopidogrel Bisulfate (Plavix) 600 mg 1X ONCE PO Last administered on at 13:00; Start 12/05/17 at 13:00; Stop 12/05/17 at 13:13; Status DC Lidocaine HCl (Xylocaine-Mpf 1% 2ml Vial) 2 ml 1X ONCE INJ Last administered on 12/05/17at 13:00; Start 12/05/17 at 13:00; Stop 12/05/17 at 13:13; Status DC Info (CONTRAST GIVEN -- Rx MONITORING) 1 each PRN DAILY PRN MC SEE COMMENTS; Start 12/05/17 at 13:15; Stop 12/07/17 at 13:14; Status DC Sodium Chloride 1,000 ml @ 100 mls/hr Q10H IV Last administered on 12/06/17at 04:23; Start 12/05/17 at 13:01; Stop 12/07/17 at 12:10; Status DC Aspirin (Ecotrin) 325 mg DAILYWBKFT PO Last administered on 12/08/17at 08:37; Start 12/06/17 at 08:00 Clopidogrel Bisulfate (Plavix) 75 mg DAILYWBKFT PO Last administered on at 08:37; Start 12/06/17 at 08:00 Atorvastatin Calcium (Lipitor) 20 mg QHS PO Last administered on 12/05/17at 21: 11; Start 12/05/17 at 21:00; Stop 12/06/17 at 11:19; Status DC Acetaminophen (Tylenol) 650 mg PRN Q6HRS PRN PO MILD PAIN / TEMP Last administered on 12/07/17at 21:23; Start 12/05/17 at 13:15 Nitroglycerin (Nitrostat) 0.4 mg PRN Q5MIN PRN SL CHEST PAIN; Start 12/05/17 at 13:15 Ceftriaxone Sodium (Rocephin) 1 gm Q24H IVP Last administered on 12/06/17at 09: 23; Start 12/06/17 at 08:00; Stop 12/06/17 at 15:28; Status DC Carvedilol (Coreg) 6.25 mg BIDWMEALS PO Last administered on 12/08/17at 08:38; Start 12/05/17 at 17:00 Citalopram Hydrobromide (CeleXA) 20 mg DAILY PO Last administered on at 08:37; Start 12/06/17 at 09:00 Tamsulosin HCl (Flomax) 0.4 mg HS PO Last administered on 12/07/17at 21:23; Start 12/05/17 at 21:00 Memantine (Namenda) 10 mg DAILY PO Last administered on 12/08/17at 08:37; Start 12/06/17 at 09:00 Magnesium Sulfate 50 ml @ 25 mls/hr 1X ONCE IV Last administered on at 11:57; Start 12/06/17 at 10:00; Stop 12/06/17 at 11:59; Status DC Atorvastatin Calcium (Lipitor) 40 mg QHS PO Last administered on 12/07/17at 21: 23; Start 12/06/17 at 21:00 Lisinopril (Prinivil) 5 mg DAILY PO Last administered on 12/08/17at 08:37; Start 12/06/17 at 12:30 Cefpodoxime Proxetil (Vantin) 200 mg BID PO Last administered on 12/08/17at 08: 37; Start 12/06/17 at 21:00 Lactobacillus Rhamnosus (Culturelle) 1 cap BID PO Last administered on at 08:37; Start 12/07/17 at 09:00 Insulin Glargine (Lantus) 6 units QHS SQ Last administered on 12/07/17at 21:29 ; Start 12/07/17 at 21:15 Insulin Human Lispro (HumaLOG) 0-5 UNITS QIDACHS SQ Last administered on at 08:41; Start 12/08/17 at 07:30 Insulin Human Lispro (HumaLOG) 4 units 1X ONCE SQ Last administered on at 21:29; Start 12/07/17 at 21:15; Stop 12/07/17 at 21:16; Status DC Active Scripts Active Reported Humalog (Insulin Lispro) 100 Unit/1 Ml Vial 20 Unit SQ TIDBFRMEAL Cefpodoxime Proxetil 200 Mg Tablet 1 Tab PO BID 7 Days Citalopram Hbr (Citalopram Hydrobromide) 20 Mg Tablet 1 Tab PO DAILY Terazosin Hcl 5 Mg Capsule 1 Cap PO QHS Coreg (Carvedilol) 6.25 Mg Tablet 1 Tab PO BID Lantus Solostar (Insulin Glargine,Hum.rec.anlog) 100 Unit/1 Ml Insuln.pen 60 Unit SQ DAILY Tamsulosin Hcl 0.4 Mg Cap.er.24h 0.4 Mg PO HS Protonix (Pantoprazole Sodium) 20 Mg Tablet.dr 40 Mg PO DAILY Namenda (Memantine Hcl) 10 Mg Tablet 10 Mg PO DAILY Vitals/I & O Vital Sign - Last 24 Hours 12/07/17 12/07/17 12/07/17 12/07/17 15:00 17:34 19:28 20:00 Temp 98.2 98.6 98.2 98.6 Pulse 71 71 82 Resp 18 18 B/P (MAP) 119/56 (77) 119/56 140/78 (98) Pulse Ox 93 94 O2 Delivery Room Air Room Air Room Air 12/07/17 12/08/17 12/08/17 12/08/17 23:31 03:55 06:53 08:00 Temp 97.9 98.3 98.4 97.9 98.3 98.4 Pulse 77 70 78 Resp 20 20 18 B/P (MAP) 10/61 (44) 138/58 (84) 143/67 (92) Pulse Ox 95 93 92 O2 Delivery Room Air Room Air Room Air Room Air 12/08/17 12/08/17 12/08/17 08:37 08:38 11:06 Temp 98.7 98.7 Pulse 78 78 68 Resp 18 B/P (MAP) 143/67 143/67 138/66 (90) Pulse Ox 93 O2 Delivery Room Air Intake and Output 12/07/17 12/07/17 12/08/17 15:00 23:00 07:00 Intake Total 270 ml 120 ml 1100 ml Output Total 400 ml 1050 ml Balance 270 ml -280 ml 50 ml MODE RAMOS MD Dec 08, 2017 11:39
[2017-12-08 15:09] VITALS: BP 122/59
--- NOTE | 2017-12-08 15:22 | PDOC2 ---
NEUROLOGY CONSULT Date of Admission Date of Admission DATE: 12/08/17 TIME: 15:09 Reason for Consult Reason for Consult: IMPRESSION: Generalized weakness. UTI. Fall. Shunt malfunction? Ventriculomegaly. DM. HTN. CAD, left main 70-80% stenosis, s/p stent. CHF, EF 45%. Dementia feature. Old CVA. Over weight. RECOMMENDATIONS/PLAN: Shunt series. Lab: see orders. Treat UTI. Treat medical and cardiac diseases. OT/PT. HISTORY OF THE PRESENT ILLNESS: 82-y-old male patient with Hx of ventriculomegaly s/p shunt placement about 19 years ago. He slipped from bed to floor on 12/05 but he was unable to get up due to generalized weakness. No focalized sensory or motor deficits. PAST MEDICAL HISTORY Cardiovascular: AFIB (?), CAD, CHF, HTN, Hyperlipidemia Pulmonary: COPD, Pneumonia CENTRAL NERVOUS SYSTEM: CVA, Dementia GI: GERD Hepatobiliary: Cirrhosis Psych: Anxiety Musculoskeletal: low back pain, Osteoarthritis, Other (falls) Rheumatologic: No pertinent hx Infectious disease: No pertinent hx ENT: Other (point lay ira) Renal/: Urinary Incontinence Endocrine: Diabetes Dermatology: No pertinent hx PAST SURGICAL HISTORY [facility]. FAMILY HISTORY Unknown SOCIAL HISTORY Smoke: Quit ALCOHOL: occassional Drugs: None Lives: with Family ALLERGY: Reviewed. MEDICATIONS: Refer to [facility] REVIEW OF SYSTEMS: Constitutional: No malnutrition, weight loss, cachexia. Head: No traumatic brain or head injury. Skin: No edema, or rash. Ear: No infection. Eyes: No vision loss or color blindness. Nose: No bleeding or purulent discharges. Hearing: No hearing decrease. Neck: No injury. Cardiac: CAD, HTN. Pulmonary: No COPD. GI: No GI ulcer, GI bleeding. Urinary/genital: UTI. Endocrinologic: Diabetes Mellitus. Skeletomuscular: Generalized weakness. Neurological: see HP. Psychiatric: Denies drug use/abuse. Otherwise, not [id number] review of systems. PHYSICAL EXAMINATION: General appearance is in no acute distress. HEENT: Normocephalic and nontraumatic. Eyes, nose, ears, and throat are unremarkable. Neck is supple. No lymphadenopathy. No crepitus. Cardiovascular: S1, S2, regular rate and rhythm. Pulmonary: Clear to auscultation bilaterally. Abdomen: Bowel sounds are positive. Extremities: No rash, lesions, or edema. No restriction of range of motion NEUROLOGICAL EXAMINATION: Alert Oriented partially to time, place and person. PERRL. EOMI. CN: no focal findings. Muscle tone: within normal. Muscle strength: 4 DTR: 1-2 Plantar reflex: Neutral response bilaterally Gait: not examined in bed. Sensory exam: no abnormal findings. No cerebellar signs elicited. F-T-N test fine. Current Medications Current Medications Current Medications Sodium Chloride 1,000 ml @ 1,000 mls/hr 1X ONCE IV Last administered on 12/05at 02:55; Start 12/05/17 at 02:30; Stop 12/05/17 at 03:29; Status DC Ondansetron HCl (Zofran) 4 mg 1X ONCE IV Last administered on 12/05/17at 02:48 ; Start 12/05/17 at 02:30; Stop 12/05/17 at 02:31; Status DC Famotidine (Pepcid Vial) 20 mg 1X ONCE IVP Last administered on 12/05/17at 02: 49; Start 12/05/17 at 02:30; Stop 12/05/17 at 02:31; Status DC Ceftriaxone Sodium 50 ml @ 100 mls/hr 1X ONCE IV Last administered on at 04:29; Start 12/05/17 at 04:30; Stop 12/05/17 at 04:59; Status DC Heparin Sodium (Porcine) (Heparin Sodium) 4,000 unit 1X ONCE IV Last administered on 12/05/17at 04:24; Start 12/05/17 at 04:30; Stop 12/05/17 at 13 :04; Status DC Heparin Sodium/ Dextrose 500 ml @ 0 mls/hr CONT PRN IV SEE I/O RECORD Last administered on 12/05/17at 04:40; Start 12/05/17 at 04:15; Stop 12/05/17 at 13 :04; Status DC Aspirin (Marilee Aspirin) 325 mg 1X ONCE PO Last administered on 12/05/17at 04: 31; Start 12/05/17 at 05:00; Stop 12/05/17 at 05:01; Status DC Ondansetron HCl (Zofran) 4 mg PRN Q8HRS PRN IV NAUSEA/VOMITING 1ST CHOICE; Start 12/05/17 at 04:30; Stop 12/06/17 at 04:29; Status DC Fentanyl Citrate (Fentanyl 2ml Vial) 50 mcg PRN Q2HR PRN IV SEVERE PAIN; Start 12/05/17 at 04:30; Stop 12/06/17 at 04:29; Status DC Insulin Human Lispro (HumaLOG) 0-5 UNITS TIDWMEALS SQ Last administered on at 17:38; Start 12/05/17 at 08:00; Stop 12/07/17 at 21:04; Status DC Dextrose (Dextrose 50%-Water Syringe) 12.5 gm PRN Q15MIN PRN IV SEE COMMENTS; Start 12/05/17 at 04:30 Influenza Virus Vaccine (Afluria Trivalent [id number] Syringe) 0.5 ml ONCE ONCE VAX IM Last administered on 12/05/17at 15:18; Start 12/05/17 at 09:00; Stop 12/05/17 at 09:01; Status DC Sodium Chloride 1,000 ml @ 75 mls/hr 1X ONCE IV Last administered on at 11:31; Start 12/05/17 at 10:15; Stop 12/05/17 at 23:34; Status DC Magnesium Sulfate 50 ml @ 25 mls/hr 1X ONCE IV Last administered on at 15:13; Start 12/05/17 at 11:15; Stop 12/05/17 at 13:14; Status DC Lidocaine HCl (Xylocaine-Mpf 1% 2ml Vial) 2 ml STK-MED ONCE .ROUTE ; Start at 11:11; Stop 12/05/17 at 11:12; Status DC Heparin Sodium/ Sodium Chloride 500 ml @ As Directed STK-MED ONCE .ROUTE ; Start 12/05/17 at 11:11; Stop 12/05/17 at 11:12; Status DC Iodixanol (Visipaque 320) 100 ml STK-MED ONCE .ROUTE ; Start 12/05/17 at 11:31 ; Stop 12/05/17 at 11:32; Status DC Fentanyl Citrate (Fentanyl 2ml Vial) 100 mcg STK-MED ONCE .ROUTE ; Start at 11:33; Stop 12/05/17 at 11:34; Status DC Midazolam HCl (Versed) 2 mg STK-MED ONCE .ROUTE ; Start 12/05/17 at 11:33; Stop 12/05/17 at 11:34; Status DC Verapamil HCl (Verapamil) 5 mg STK-MED ONCE .ROUTE ; Start 12/05/17 at 11:34; Stop 12/05/17 at 11:35; Status DC Heparin Sodium (Porcine) (Heparin Sodium) 10,000 unit STK-MED ONCE .ROUTE ; Start 12/05/17 at 11:34; Stop 12/05/17 at 11:35; Status DC Nitroglycerin (Nitroglycerin) 200 mcg STK-MED ONCE .ROUTE ; Start 12/05/17 at 11:34; Stop 12/05/17 at 11:35; Status DC Iohexol (Omnipaque 300 Mg/ml) 100 ml STK-MED ONCE .ROUTE ; Start 12/05/17 at 12 :17; Stop 12/05/17 at 12:18; Status DC Bivalirudin (Angiomax) 250 mg STK-MED ONCE IV ; Start 12/05/17 at 12:21; Stop 12/05/17 at 12:22; Status DC Iodixanol (Visipaque 320) 100 ml STK-MED ONCE .ROUTE ; Start 12/05/17 at 12:44 ; Stop 12/05/17 at 12:45; Status DC Nitroglycerin (Nitroglycerin) 200 mcg 1X ONCE IART Last administered on at 13:00; Start 12/05/17 at 13:00; Stop 12/05/17 at 13:13; Status DC Verapamil HCl (Verapamil) 2.5 mg 1X ONCE IART Last administered on 12/05/17at 13:00; Start 12/05/17 at 13:00; Stop 12/05/17 at 13:13; Status DC Heparin Sodium (Porcine) (Heparin Sodium) 2,500 unit 1X ONCE IART Last administered on 12/05/17at 13:00; Start 12/05/17 at 13:00; Stop 12/05/17 at 13 :13; Status DC Heparin Sodium/ Sodium Chloride (HEPARIN for ARTERIAL LINE FLUSH) 1,000 unit 1X ONCE IART Last administered on 12/05/17at 13:00; Start 12/05/17 at 13:00; Stop 12/05/17 at 13:13; Status DC Midazolam HCl (Versed) 2 mg 1X ONCE IV Last administered on 12/05/17at 13:00; Start 12/05/17 at 13:00; Stop 12/05/17 at 13:13; Status DC Fentanyl Citrate (Fentanyl 2ml Vial) 100 mcg 1X ONCE IV Last administered on 12/05/17at 13:00; Start 12/05/17 at 13:00; Stop 12/05/17 at 13:13; Status DC Iodixanol (Visipaque 320) 100 ml 1X ONCE IART Last administered on 12/05/17at 13:00; Start 12/05/17 at 13:00; Stop 12/05/17 at 13:13; Status DC Bivalirudin (Angiomax) 250 mg 1X ONCE IV Last administered on 12/05/17at 13:00 ; Start 12/05/17 at 13:00; Stop 12/05/17 at 13:13; Status DC Clopidogrel Bisulfate (Plavix) 600 mg 1X ONCE PO Last administered on at 13:00; Start 12/05/17 at 13:00; Stop 12/05/17 at 13:13; Status DC Lidocaine HCl (Xylocaine-Mpf 1% 2ml Vial) 2 ml 1X ONCE INJ Last administered on 12/05/17at 13:00; Start 12/05/17 at 13:00; Stop 12/05/17 at 13:13; Status DC Info (CONTRAST GIVEN -- Rx MONITORING) 1 each PRN DAILY PRN MC SEE COMMENTS; Start 12/05/17 at 13:15; Stop 12/07/17 at 13:14; Status DC Sodium Chloride 1,000 ml @ 100 mls/hr Q10H IV Last administered on 12/06/17at 04:23; Start 12/05/17 at 13:01; Stop 12/07/17 at 12:10; Status DC Aspirin (Ecotrin) 325 mg DAILYWBKFT PO Last administered on 12/08/17at 08:37; Start 12/06/17 at 08:00 Clopidogrel Bisulfate (Plavix) 75 mg DAILYWBKFT PO Last administered on at 08:37; Start 12/06/17 at 08:00 Atorvastatin Calcium (Lipitor) 20 mg QHS PO Last administered on 12/05/17at 21: 11; Start 12/05/17 at 21:00; Stop 12/06/17 at 11:19; Status DC Acetaminophen (Tylenol) 650 mg PRN Q6HRS PRN PO MILD PAIN / TEMP Last administered on 12/07/17 21:23; Start 12/05/17 at 13:15 Nitroglycerin (Nitrostat) 0.4 mg PRN Q5MIN PRN SL CHEST PAIN; Start 12/05/17 at 13:15 Ceftriaxone Sodium (Rocephin) 1 gm Q24H IVP Last administered on 12/06/17at 09: 23; Start 12/06/17 at 08:00; Stop 12/06/17 at 15:28; Status DC Carvedilol (Coreg) 6.25 mg BIDWMEALS PO Last administered on 12/08/17at 08:38; Start 12/05/17 at 17:00 Citalopram Hydrobromide (CeleXA) 20 mg DAILY PO Last administered on at 08:37; Start 12/06/17 at 09:00 Tamsulosin HCl (Flomax) 0.4 mg HS PO Last administered on 12/07/17at 21:23; Start 12/05/17 at 21:00 Memantine (Namenda) 10 mg DAILY PO Last administered on 12/08/17at 08:37; Start 12/06/17 at 09:00 Magnesium Sulfate 50 ml @ 25 mls/hr 1X ONCE IV Last administered on at 11:57; Start 12/06/17 at 10:00; Stop 12/06/17 at 11:59; Status DC Atorvastatin Calcium (Lipitor) 40 mg QHS PO Last administered on 12/07/17at 21: 23; Start 12/06/17 at 21:00 Lisinopril (Prinivil) 5 mg DAILY PO Last administered on 12/08/17at 08:37; Start 12/06/17 at 12:30 Cefpodoxime Proxetil (Vantin) 200 mg BID PO Last administered on 12/08/17at 08: 37; Start 12/06/17 at 21:00 Lactobacillus Rhamnosus (Culturelle) 1 cap BID PO Last administered on at 08:37; Start 12/07/17 at 09:00 Insulin Glargine (Lantus) 6 units QHS SQ Last administered on 12/07/17at 21:29 ; Start 12/07/17 at 21:15 Insulin Human Lispro (HumaLOG) 0-5 UNITS QIDACHS SQ Last administered on at 11:49; Start 12/08/17 at 07:30 Insulin Human Lispro (HumaLOG) 4 units 1X ONCE SQ Last administered on at 21:29; Start 12/07/17 at 21:15; Stop 12/07/17 at 21:16; Status DC Active Scripts Active Reported Humalog (Insulin Lispro) 100 Unit/1 Ml Vial 20 Unit SQ TIDBFRMEAL Cefpodoxime Proxetil 200 Mg Tablet 1 Tab PO BID 7 Days Citalopram Hbr (Citalopram Hydrobromide) 20 Mg Tablet 1 Tab PO DAILY Terazosin Hcl 5 Mg Capsule 1 Cap PO QHS Coreg (Carvedilol) 6.25 Mg Tablet 1 Tab PO BID Lantus Solostar (Insulin Glargine,Hum.rec.anlog) 100 Unit/1 Ml Insuln.pen 60 Unit SQ DAILY Tamsulosin Hcl 0.4 Mg Cap.er.24h 0.4 Mg PO HS Protonix (Pantoprazole Sodium) 20 Mg Tablet.dr 40 Mg PO DAILY Namenda (Memantine Hcl) 10 Mg Tablet 10 Mg PO DAILY Allergies Allergies: Allergies Coded Allergies Type Severity Reaction Last Updated Verified Penicillins Allergy Severe swelling all over 09/02/17 Yes ciprofloxacin Allergy Intermediate 08/29/17 Yes codeine Allergy Intermediate 08/29/17 Yes hydrocodone Allergy Intermediate 08/29/17 Yes oxycodone Allergy Intermediate 08/29/17 Yes ROS Review of System The patient denies any associated fevers, chills, headache, ear pain, rhinorrhea , sore throat, stiff neck, productive cough, chest pain, shortness of breath, back or flank pain, abdominal pain, nausea, vomiting, diarrhea, constipation, dysuria, rash, numbness, weakness, tingling, incontinence, difficulty ambulating, or diaphoresis. Physical Exam Physical Exam General: Well developed, well nourished, no acute distress, well appearing HEENT: Pupils equally round and reactive to light, EOMI, no discharge, normal conjunctiva Neck: Supple, no nuchal rigidity, no JVD, trachea midline, no tenderness Cardiac: RRR, no murmurs, no gallops, no rubs Chest/Lungs: CTAB, no wheeze, no rhonchi, no crackles Abdomen: soft, non-distended, no guarding, no peritoneal signs, non-tender Back: No tenderness Extremities: no edema, pulses intact, non-tender,capillary refill <3 sec bilateral upper and lower extremities, Neuro: Alert and oriented x 4, no focal deficits, normal speech Vitals Vitals: Vital Signs Date Time Temp Pulse Resp B/P (MAP) Pulse Ox O2 Delivery O2 Flow Rate FiO2 12/08/17 11:06 98.7 68 18 138/66 (90) 93 Room Air 98.7 12/07/17 08:00 2.0 Labs Labs Laboratory Tests Test 12/06/17 17:05 12/06/17 20:44 12/07/17 07:56 12/07/17 12:07 Glucose (Fingerstick) 186 mg/dL (70-99) 163 mg/dL (70-99) 171 mg/dL (70-99) 278 mg/dL (70-99) Test 12/07/17 17:27 12/07/17 20:40 12/08/17 06:19 12/08/17 07:11 Glucose (Fingerstick) 286 mg/dL (70-99) 323 mg/dL (70-99) 216 mg/dL (70-99) 215 mg/dL (70-99) Test 12/08/17 11:18 Glucose (Fingerstick) 297 mg/dL (70-99) Laboratory Tests Test 12/07/17 17:27 12/07/17 20:40 12/08/17 06:19 12/08/17 07:11 Glucose (Fingerstick) 286 mg/dL (70-99) 323 mg/dL (70-99) 216 mg/dL (70-99) 215 mg/dL (70-99) Test 12/08/17 11:18 Glucose (Fingerstick) 297 mg/dL (70-99) STEPH HDZ MD Dec 08, 2017 15:22
--- NOTE | 2017-12-08 16:51 | RAD ---
Skull, 2 views, 12/08/2017: HISTORY: Evaluate shunt, recent fall An intraventricular shunt tube is identified entering the skull in the right frontoparietal region and extending to the midline. It appears unchanged since 08/30/2017. The shunt tubing extends down the right side of the neck and appears intact. Chest, 2 views, 12/08/2017: The patient is rotated to the left projecting the shunt tubing over the spine and mid chest in the frontal view. Its visualized portion is intact. The heart is at the upper limits of normal in size. The pulmonary vascularity is normal. The lungs are clear. There is no evidence of pleural fluid. Moderate multilevel degenerative changes are present in the spine. KUB, 12/08/2017: The LIVER TRIMMER shunt tube extends into the pelvis with its tip projected over the inferior aspect of the right SI joint. There is an additional linear opacity compatible with an old tube or electrode fragment projected over the right midabdomen. A third linear opacity is projected over the lower lumbar spinal canal. Correlation with the patient's surgical history is suggested. The abdominal gas pattern is unremarkable. Scattered arterial calcifications are present. IMPRESSION: Intact appearing LIVER TRIMMER shunt tube as described above. Electronically signed by: Jorgito Rosario MD (12/08/2017 4:48 PM) [facility]
--- NOTE | 2017-12-08 16:51 | RAD ---
Skull, 2 views, 12/08/2017: HISTORY: Evaluate shunt, recent fall An intraventricular shunt tube is identified entering the skull in the right frontoparietal region and extending to the midline. It appears unchanged since 08/30/2017. The shunt tubing extends down the right side of the neck and appears intact. Chest, 2 views, 12/08/2017: The patient is rotated to the left projecting the shunt tubing over the spine and mid chest in the frontal view. Its visualized portion is intact. The heart is at the upper limits of normal in size. The pulmonary vascularity is normal. The lungs are clear. There is no evidence of pleural fluid. Moderate multilevel degenerative changes are present in the spine. KUB, 12/08/2017: The [employer]CH STORE MA[employer]GER shunt tube extends into the pelvis with its tip projected over the inferior aspect of the right SI joint. There is an additional linear opacity compatible with an old tube or electrode fragment projected over the right midabdomen. A third linear opacity is projected over the lower lumbar spinal canal. Correlation with the patient's surgical history is suggested. The abdominal gas pattern is unremarkable. Scattered arterial calcifications are present. IMPRESSION: Intact appearing BR[employer]CH STORE MANAGER shunt tube as described above. Electronically signed by: Jorgito Rosario MD (12/08/2017 4:48 PM) [facility]
--- NOTE | 2017-12-08 16:51 | RAD ---
Skull, 2 views, 12/08/2017: HISTORY: Evaluate shunt, recent fall An intraventricular shunt tube is identified entering the skull in the right frontoparietal region and extending to the midline. It appears unchanged since 08/30/2017. The shunt tubing extends down the right side of the neck and appears intact. Chest, 2 views, 12/08/2017: The patient is rotated to the left projecting the shunt tubing over the spine and mid chest in the frontal view. Its visualized portion is intact. The heart is at the upper limits of normal in size. The pulmonary vascularity is normal. The lungs are clear. There is no evidence of pleural fluid. Moderate multilevel degenerative changes are present in the spine. KUB, 12/08/2017: The CATHEAD OPERATOR shunt tube extends into the pelvis with its tip projected over the inferior aspect of the right SI joint. There is an additional linear opacity compatible with an old tube or electrode fragment projected over the right midabdomen. A third linear opacity is projected over the lower lumbar spinal canal. Correlation with the patient's surgical history is suggested. The abdominal gas pattern is unremarkable. Scattered arterial calcifications are present. IMPRESSION: Intact appearing CATHEAD OPERATOR shunt tube as described above. Electronically signed by: Jorgito Rosario MD (12/08/2017 4:48 PM) [facility]
[2017-12-08 19:35] VITALS: BP 123/53
[2017-12-08] MEDS: ATORVASTATIN CALCIUM 40 MG TABLET. PO SCH (20:15)
[2017-12-08] MEDS: TAMSULOSIN 0.4 MG CAP.ER.24H. PO SCH (20:16)
[2017-12-08] MEDS: INSULIN GLARGINE 300 UNITS/3 ML INSULN.PEN. SQ SCH (21:33)
[2017-12-08 23:26] VITALS: BP 141/75
[2017-12-09 03:45] VITALS: BP 155/59
--- NOTE | 2017-12-09 07:27 | PDOC ---
PROGRESS NOTES Chief Complaint Chief Complaint Fall Urinary tract infection NSTEMI Acute renal failure Confusion History of Present Illness History of Present Illness Patient is a 82 yo male presenting to the ED due to fall. States that he was getting out of bed but slipped down onto the floor. Denies head trauma, nor other trauma to any body part as he slid down on the "board". Pt did not lose consciousness. Couldn't get up for 30 minutes but ultimately his sister, with whom he lives, helped him and called the ambulance. Currently states that he feels sick and complains of right arm pain above the elbow. He also states that he vomited after having fallen and that he is nauseous. Denies chest pain, however, has a "heavy" left arm, and was noted with wide QRS and TWI in I and AVL on EKG in ED and troponin elevation to 0.4. CT head, c-spine, CXR, and right humerus x-ray showed no fractures or acute traumatic findings. Cr noted at 1.4 and UA with bacteria, positive LE and nitrites noted as well. Started on empiric antibiotics for UTI, heparin GTT for NSTEMI and admitted for further care. He has hx of CAD but could not remember of any past stents but the [facility] has been a while. Also he was told that he may need a defibrillator by a chemotherapist in [place] as well and feels he was going to move to [place] to have this done, now states he lives here and is not moving. PMHx HTN, HLP, DM2 and possibly with AFIB, does not recall all his medications because he has some dementia and forgetful. Currently he is AOx3 and presently denies any discomfort. 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 No overnight events. Feeling ok this morning, but having difficulty ambulating and has some word finding difficulty and garbled speech occasionally. He would like to go home, but cannot stand unaided. Had [employer] shunt evaluation yesterday with no malfunctions noted. Denies CP, SOB today. He is still a bit confused, apparently per sister he is still not at baseline Urine returns with [id number] colonies GNR of klebsiella, sensitive to Vantin, has Cipro and PCN allergies. A/P: Fall - at home, normal imaging. Will get PT/OT to continue to see Urinary tract infection - likely cause of fall, oral Vantin for klebsiella UTI, will need 2 weeks coverage NSTEMI - with a cardiac history, wide QRS, TWI, with increasing troponin. Consult cardiology, heparin GTT. Post stent protocol Acute renal failure - likely pre-renal, but could be due to some mild obstruction and related to infection. Gentle fluids for now. 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 With his fall and urinary complaints as well as confusion , this is a possibility. Seems oriented to location and month, year, person. Light during day for now. Neuro consultation with worsening status today Diet - Cardiac PPX - heparin DNR/DNI Inpatient for UTI treatment, needs skilled services on d/c to facility Vitals Vitals Vital Signs Date Time Temp Pulse Resp B/P (MAP) Pulse Ox O2 Delivery O2 Flow Rate FiO2 12/09/17 03:45 97.9 70 17 155/59 (91) 92 Room Air 97.9 12/08/17 20:00 2.0 Physical Exam General: Alert, Oriented X3, Cooperative, No acute distress Heart: Regular rate (SR), Normal S1, Normal S2, Other (3/6 systolic murmur to LLS border) Lungs: Clear Abdomen: Soft, No tenderness Extremities: No cyanosis Skin: No breakdown, No significant lesion Labs LABS Laboratory Tests Test 12/08/17 11:18 12/08/17 16:35 12/08/17 17:12 12/08/17 20:59 Glucose (Fingerstick) 297 mg/dL (70-99) 259 mg/dL (70-99) 310 mg/dL (70-99) Vitamin B12 Level 267 pg/mL (247-911) Thyroid Stimulating Hormone (TSH) 1.752 uIU/mL (0.358-3.74) Assessment and Plan Assessmemt and Plan Problems Medical Problems: (1) Acute UTI Status: Acute (2) Elevated troponin Status: Acute (3) Renal insufficiency Status: Acute (4) Weakness Status: Acute Comment Review of Relevant I have reviewed the following items joshua (where applicable) has been applied. Labs Laboratory Tests Test 12/07/17 07:56 12/07/17 12:07 12/07/17 17:27 12/07/17 20:40 Glucose (Fingerstick) 171 mg/dL (70-99) 278 mg/dL (70-99) 286 mg/dL (70-99) 323 mg/dL (70-99) Test 12/08/17 06:19 12/08/17 07:11 12/08/17 11:18 12/08/17 16:35 Glucose (Fingerstick) 216 mg/dL (70-99) 215 mg/dL (70-99) 297 mg/dL (70-99) Vitamin B12 Level 267 pg/mL (200-911) Thyroid Stimulating Hormone (TSH) 1.752 uIU/mL (0.358-3.74) Test 12/08/17 17:12 12/08/17 20:59 Glucose (Fingerstick) 259 mg/dL (70-99) 310 mg/dL (70-99) Laboratory Tests Test 12/08/17 11:18 12/08/17 16:35 12/08/17 17:12 12/08/17 20:59 Glucose (Fingerstick) 297 mg/dL (70-99) 259 mg/dL (70-99) 310 mg/dL (70-99) Vitamin B12 Level 267 pg/mL (247-911) Thyroid Stimulating Hormone (TSH) 1.752 uIU/mL (0.358-3.74) Microbiology 12/05/17 Urine Culture - Final, Complete 12/05/17 Urine Culture Result 1 (GUMARO) - Final, Complete 12/05/17 Antimicrobic Susceptibility - Final, Complete Medications Current Medications Sodium Chloride 1,000 ml @ 1,000 mls/hr 1X ONCE IV Last administered on 12/05at 02:55; Start 12/05/17 at 02:30; Stop 12/05/17 at 03:29; Status DC Ondansetron HCl (Zofran) 4 mg 1X ONCE IV Last administered on 12/05/17at 02:48 ; Start 12/05/17 at 02:30; Stop 12/05/17 at 02:31; Status DC Famotidine (Pepcid Vial) 20 mg 1X ONCE IVP Last administered on 12/05/17at 02: 49; Start 12/05/17 at 02:30; Stop 12/05/17 at 02:31; Status DC Ceftriaxone Sodium 50 ml @ 100 mls/hr 1X ONCE IV Last administered on at 04:29; Start 12/05/17 at 04:30; Stop 12/05/17 at 04:59; Status DC Heparin Sodium (Porcine) (Heparin Sodium) 4,000 unit 1X ONCE IV Last administered on 12/05/17at 04:24; Start 12/05/17 at 04:30; Stop 12/05/17 at 13 :04; Status DC Heparin Sodium/ Dextrose 500 ml @ 0 mls/hr CONT PRN IV SEE I/O RECORD Last administered on 12/05/17at 04:40; Start 12/05/17 at 04:15; Stop 12/05/17 at 13 :04; Status DC Aspirin (Marilee Aspirin) 325 mg 1X ONCE PO Last administered on 12/05/17at 04: 31; Start 12/05/17 at 05:00; Stop 12/05/17 at 05:01; Status DC Ondansetron HCl (Zofran) 4 mg PRN Q8HRS PRN IV NAUSEA/VOMITING 1ST CHOICE; Start 12/05/17 at 04:30; Stop 12/06/17 at 04:29; Status DC Fentanyl Citrate (Fentanyl 2ml Vial) 50 mcg PRN Q2HR PRN IV SEVERE PAIN; Start 12/05/17 at 04:30; Stop 12/06/17 at 04:29; Status DC Insulin Human Lispro (HumaLOG) 0-5 UNITS TIDWMEALS SQ Last administered on at 17:38; Start 12/05/17 at 08:00; Stop 12/07/17 at 21:04; Status DC Dextrose (Dextrose 50%-Water Syringe) 12.5 gm PRN Q15MIN PRN IV SEE COMMENTS; Start 12/05/17 at 04:30 Influenza Virus Vaccine (Afluria Trivalent 8524-1000 Syringe) 0.5 ml ONCE ONCE VAX IM Last administered on 12/05/17at 15:18; Start 12/05/17 at 09:00; Stop 12/05/17 at 09:01; Status DC Sodium Chloride 1,000 ml @ 75 mls/hr 1X ONCE IV Last administered on at 11:31; Start 12/05/17 at 10:15; Stop 12/05/17 at 23:34; Status DC Magnesium Sulfate 50 ml @ 25 mls/hr 1X ONCE IV Last administered on at 15:13; Start 12/05/17 at 11:15; Stop 12/05/17 at 13:14; Status DC Lidocaine HCl (Xylocaine-Mpf 1% 2ml Vial) 2 ml STK-MED ONCE .ROUTE ; Start at 11:11; Stop 12/05/17 at 11:12; Status DC Heparin Sodium/ Sodium Chloride 500 ml @ As Directed STK-MED ONCE .ROUTE ; Start 12/05/17 at 11:11; Stop 12/05/17 at 11:12; Status DC Iodixanol (Visipaque 320) 100 ml STK-MED ONCE .ROUTE ; Start 12/05/17 at 11:31 ; Stop 12/05/17 at 11:32; Status DC Fentanyl Citrate (Fentanyl 2ml Vial) 100 mcg STK-MED ONCE .ROUTE ; Start at 11:33; Stop 12/05/17 at 11:34; Status DC Midazolam HCl (Versed) 2 mg STK-MED ONCE .ROUTE ; Start 12/05/17 at 11:33; Stop 12/05/17 at 11:34; Status DC Verapamil HCl (Verapamil) 5 mg STK-MED ONCE .ROUTE ; Start 12/05/17 at 11:34; Stop 12/05/17 at 11:35; Status DC Heparin Sodium (Porcine) (Heparin Sodium) 10,000 unit STK-MED ONCE .ROUTE ; Start 12/05/17 at 11:34; Stop 12/05/17 at 11:35; Status DC Nitroglycerin (Nitroglycerin) 200 mcg STK-MED ONCE .ROUTE ; Start 12/05/17 at 11:34; Stop 12/05/17 at 11:35; Status DC Iohexol (Omnipaque 300 Mg/ml) 100 ml STK-MED ONCE .ROUTE ; Start 12/05/17 at 12 :17; Stop 12/05/17 at 12:18; Status DC Bivalirudin (Angiomax) 250 mg STK-MED ONCE IV ; Start 12/05/17 at 12:21; Stop 12/05/17 at 12:22; Status DC Iodixanol (Visipaque 320) 100 ml STK-MED ONCE .ROUTE ; Start 12/05/17 at 12:44 ; Stop 12/05/17 at 12:45; Status DC Nitroglycerin (Nitroglycerin) 200 mcg 1X ONCE IART Last administered on at 13:00; Start 12/05/17 at 13:00; Stop 12/05/17 at 13:13; Status DC Verapamil HCl (Verapamil) 2.5 mg 1X ONCE IART Last administered on 12/05/17at 13:00; Start 12/05/17 at 13:00; Stop 12/05/17 at 13:13; Status DC Heparin Sodium (Porcine) (Heparin Sodium) 2,500 unit 1X ONCE IART Last administered on 12/05/17at 13:00; Start 12/05/17 at 13:00; Stop 12/05/17 at 13 :13; Status DC Heparin Sodium/ Sodium Chloride (HEPARIN for ARTERIAL LINE FLUSH) 1,000 unit 1X ONCE IART Last administered on 12/05/17 13:00; Start 12/05/17 at 13:00; Stop 12/05/17 at 13:13; Status DC Midazolam HCl (Versed) 2 mg 1X ONCE IV Last administered on 12/05/17 13:00; Start 12/05/17 at 13:00; Stop 12/05/17 at 13:13; Status DC Fentanyl Citrate (Fentanyl 2ml Vial) 100 mcg 1X ONCE IV Last administered on 12/05/17 13:00; Start 12/05/17 at 13:00; Stop 12/05/17 at 13:13; Status DC Iodixanol (Visipaque 320) 100 ml 1X ONCE IART Last administered on 12/05/17 13:00; Start 12/05/17 at 13:00; Stop 12/05/17 at 13:13; Status DC Bivalirudin (Angiomax) 250 mg 1X ONCE IV Last administered on 12/05/17 13:00 ; Start 12/05/17 at 13:00; Stop 12/05/17 at 13:13; Status DC Clopidogrel Bisulfate (Plavix) 600 mg 1X ONCE PO Last administered on 13:00; Start 12/05/17 at 13:00; Stop 12/05/17 at 13:13; Status DC Lidocaine HCl (Xylocaine-Mpf 1% 2ml Vial) 2 ml 1X ONCE INJ Last administered on 12/05/17at 13:00; Start 12/05/17 at 13:00; Stop 12/05/17 at 13:13; Status DC Info (CONTRAST GIVEN -- Rx MONITORING) 1 each PRN DAILY PRN MC SEE COMMENTS; Start 12/05/17 at 13:15; Stop 12/07/17 at 13:14; Status DC Sodium Chloride 1,000 ml @ 100 mls/hr Q10H IV Last administered on 12/06/17at 04:23; Start 12/05/17 at 13:01; Stop 12/07/17 at 12:10; Status DC Aspirin (Ecotrin) 325 mg DAILYWBKFT PO Last administered on 12/08/17at 08:37; Start 12/06/17 at 08:00 Clopidogrel Bisulfate (Plavix) 75 mg DAILYWBKFT PO Last administered on at 08:37; Start 12/06/17 at 08:00 Atorvastatin Calcium (Lipitor) 20 mg QHS PO Last administered on 12/05/17at 21: 11; Start 12/05/17 at 21:00; Stop 12/06/17 at 11:19; Status DC Acetaminophen (Tylenol) 650 mg PRN Q6HRS PRN PO MILD PAIN / TEMP Last administered on 12/07/17at 21:23; Start 12/05/17 at 13:15 Nitroglycerin (Nitrostat) 0.4 mg PRN Q5MIN PRN SL CHEST PAIN; Start 12/05/17 at 13:15 Ceftriaxone Sodium (Rocephin) 1 gm Q24H IVP Last administered on 12/06/17at 09: 23; Start 12/06/17 at 08:00; Stop 12/06/17 at 15:28; Status DC Carvedilol (Coreg) 6.25 mg BIDWMEALS PO Last administered on 12/08/17at 17:32; Start 12/05/17 at 17:00 Citalopram Hydrobromide (CeleXA) 20 mg DAILY PO Last administered on at 08:37; Start 12/06/17 at 09:00 Tamsulosin HCl (Flomax) 0.4 mg HS PO Last administered on 12/08/17at 20:16; Start 12/05/17 at 21:00 Memantine (Namenda) 10 mg DAILY PO Last administered on 12/08/17at 08:37; Start 12/06/17 at 09:00 Magnesium Sulfate 50 ml @ 25 mls/hr 1X ONCE IV Last administered on at 11:57; Start 12/06/17 at 10:00; Stop 12/06/17 at 11:59; Status DC Atorvastatin Calcium (Lipitor) 40 mg QHS PO Last administered on 12/08/17at 20: 15; Start 12/06/17 at 21:00 Lisinopril (Prinivil) 5 mg DAILY PO Last administered on 12/08/17at 08:37; Start 12/06/17 at 12:30 Cefpodoxime Proxetil (Vantin) 200 mg BID PO Last administered on 12/08/17at 20: 15; Start 12/06/17 at 21:00 Lactobacillus Rhamnosus (Culturelle) 1 cap BID PO Last administered on at 20:15; Start 12/07/17 at 09:00 Insulin Glargine (Lantus) 6 units QHS SQ Last administered on 12/08/17at 21:33 ; Start 12/07/17 at 21:15 Insulin Human Lispro (HumaLOG) 0-5 UNITS QIDACHS SQ Last administered on at 21:35; Start 12/08/17 at 07:30 Insulin Human Lispro (HumaLOG) 4 units 1X ONCE SQ Last administered on at 21:29; Start 12/07/17 at 21:15; Stop 12/07/17 at 21:16; Status DC Active Scripts Active Reported Humalog (Insulin Lispro) 100 Unit/1 Ml Vial 20 Unit SQ TIDBFRMEAL Cefpodoxime Proxetil 200 Mg Tablet 1 Tab PO BID 7 Days Citalopram Hbr (Citalopram Hydrobromide) 20 Mg Tablet 1 Tab PO DAILY Terazosin Hcl 5 Mg Capsule 1 Cap PO QHS Coreg (Carvedilol) 6.25 Mg Tablet 1 Tab PO BID Lantus Solostar (Insulin Glargine,Hum.rec.anlog) 100 Unit/1 Ml Insuln.pen 60 Unit SQ DAILY Tamsulosin Hcl 0.4 Mg Cap.er.24h 0.4 Mg PO HS Protonix (Pantoprazole Sodium) 20 Mg Tablet.dr 40 Mg PO DAILY Namenda (Memantine Hcl) 10 Mg Tablet 10 Mg PO DAILY Vitals/I & O Vital Sign - Last 24 Hours 12/08/17 12/08/17 12/08/17 12/08/17 08:00 08:37 08:38 11:06 Temp 98.7 98.7 Pulse 78 78 68 Resp 18 B/P (MAP) 143/67 143/67 138/66 (90) Pulse Ox 93 O2 Delivery Room Air Room Air 12/08/17 12/08/17 12/08/17 12/08/17 15:09 17:32 19:35 20:00 Temp 98.3 98.6 98.3 98.6 Pulse 69 69 56 Resp 18 18 B/P (MAP) 122/59 (80) 122/59 123/53 (76) Pulse Ox 94 95 O2 Delivery Room Air Room Air Room Air O2 Flow Rate 2.0 12/08/17 12/09/17 23:26 03:45 Temp 98.4 97.9 98.4 97.9 Pulse 70 70 Resp 20 17 B/P (MAP) 141/75 (97) 155/59 (91) Pulse Ox 93 92 O2 Delivery Room Air Room Air Intake and Output 12/08/17 12/08/17 12/09/17 15:00 23:00 07:00 Intake Total 400 ml 120 ml Output Total 200 ml 750 ml Balance 200 ml -630 ml MODE RAMOS MD Dec 09, 2017 07:27
[2017-12-09 07:31] VITALS: BP 146/62
[2017-12-09] MEDS: CEFPODOXIME PROXETIL 100 MG TABLET. PO SCH ×2 (08:07→19:46)
[2017-12-09] MEDS: LACTOBACILLUS RHAMNOSUS GG 1 CAPSULE. PO SCH ×2 (08:07→19:46)
[2017-12-09] MEDS: LISINOPRIL 5 MG TABLET. PO SCH (08:08)
[2017-12-09] MEDS: MEMANTINE 10 MG TABLET. PO SCH (08:08)
[2017-12-09] MEDS: CLOPIDOGREL BISULFATE 75 MG TABLET PO SCH (08:09)
[2017-12-09] MEDS: ASPIRIN ENTERIC COATED 325 MG TABLET.DR. PO SCH (08:09)
[2017-12-09] MEDS: CARVEDILOL 6.25 MG TABLET. PO SCH ×2 (08:09→17:28)
[2017-12-09] MEDS: CITALOPRAM 20 MG TABLET. PO SCH (08:09)
[2017-12-09] MEDS: INSULIN LISPRO 300 UNITS/3 ML INSULN.PEN. SQ SCH ×4 (08:13→21:27)
[2017-12-09 10:21] VITALS: BP 134/60
[2017-12-09 14:50] VITALS: BP 139/56
[2017-12-09 19:18] VITALS: BP 119/94
[2017-12-09] MEDS: TAMSULOSIN 0.4 MG CAP.ER.24H. PO SCH (19:46)
[2017-12-09] MEDS: ATORVASTATIN CALCIUM 40 MG TABLET. PO SCH (19:46)
[2017-12-09] MEDS: ACETAMINOPHEN 325 MG TABLET. PO PRN (21:01)
[2017-12-09] MEDS: INSULIN GLARGINE 300 UNITS/3 ML INSULN.PEN. SQ SCH (21:28)
[2017-12-09 23:12] VITALS: BP 129/85
[2017-12-10 03:05] VITALS: BP 145/54
--- NOTE | 2017-12-10 07:10 | PDOC ---
PROGRESS NOTES Chief Complaint Chief Complaint Fall Urinary tract infection NSTEMI Acute renal failure Confusion History of Present Illness History of Present Illness Patient is a 82 yo male presenting to the ED due to fall. States that he was getting out of bed but slipped down onto the floor. Denies head trauma, nor other trauma to any body part as he slid down on the "board". Pt did not lose consciousness. Couldn't get up for 30 minutes but ultimately his sister, with whom he lives, helped him and called the ambulance. Currently states that he feels sick and complains of right arm pain above the elbow. He also states that he vomited after having fallen and that he is nauseous. Denies chest pain, however, has a "heavy" left arm, and was noted with wide QRS and TWI in I and AVL on EKG in ED and troponin elevation to 0.4. CT head, c-spine, CXR, and right humerus x-ray showed no fractures or acute traumatic findings. Cr noted at 1.4 and UA with bacteria, positive LE and nitrites noted as well. Started on empiric antibiotics for UTI, heparin GTT for NSTEMI and admitted for further care. He has hx of CAD but could not remember of any past stents but the [facility] has been a while. Also he was told that he may need a defibrillator by a security risk analyst in [place] as well and feels he was going to move to [place] to have this done, now states he lives here and is not moving. PMHx HTN, HLP, DM2 and possibly with AFIB, does not recall all his medications because he has some dementia and forgetful. Currently he is AOx3 and presently denies any discomfort. To labor relations director 12/05 afternoon - left main stenting. No overnight events. Feeling ok this morning, having less difficulty ambulating and less word finding difficulty and less garbled speech occasionally. He would like to go home, but cannot stand unaided. 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 Denies CP, SOB today. He is still a bit confused, apparently per sister he is near baseline A/P: Fall - at home, normal imaging. Will get PT/OT to continue to see Urinary tract infection - likely cause of fall, Urine returns with [id number] colonies GNR of klebsiella, sensitive to Vantin, has Cipro and PCN allergies. NSTEMI - with a cardiac history, wide QRS, TWI, with increasing troponin. Consulted cardiology, heparin GTT. Post stent protocol for left main stenting Acute renal failure - likely pre-renal, but could be due to some mild obstruction and related to infection. Gentle fluids for now. 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 With his fall and urinary complaints as well as confusion , this is a possibility. Seems oriented to location and month, year, person. Light during day for now. Neuro consultation shows normal D[employer] COLLECTOR ATTENDANT shunt Diet - Cardiac PPX - heparin DNR/DNI Inpatient for UTI treatment, needs skilled services on d/c to facility Vitals Vitals Vital Signs Date Time Temp Pulse Resp B/P (MAP) Pulse Ox O2 Delivery O2 Flow Rate FiO2 12/10/17 03:05 97.9 61 18 145/54 (84) 94 Room Air 97.9 Physical Exam General: Alert, Oriented X3, Cooperative, No acute distress Heart: Regular rate (SR), Normal S1, Normal S2, Other (3/6 systolic murmur to LLS border) Lungs: Clear Abdomen: Soft, No tenderness Extremities: No cyanosis Skin: No breakdown, No significant lesion Labs LABS Laboratory Tests Test 12/09/17 08:02 12/09/17 11:47 12/09/17 16:49 12/09/17 20:43 Glucose (Fingerstick) 218 mg/dL (70-99) 271 mg/dL (70-99) 314 mg/dL (70-99) 316 mg/dL (70-99) Assessment and Plan Assessmemt and Plan Problems Medical Problems: (1) Acute UTI Status: Acute (2) Elevated troponin Status: Acute (3) Renal insufficiency Status: Acute (4) Weakness Status: Acute Comment Review of Relevant I have reviewed the following items joshua (where applicable) has been applied. Labs Laboratory Tests Test 12/08/17 07:11 12/08/17 11:18 12/08/17 16:35 12/08/17 17:12 Glucose (Fingerstick) 215 mg/dL (70-99) 297 mg/dL (70-99) 259 mg/dL (70-99) Vitamin B12 Level 267 pg/mL (247-911) Thyroid Stimulating Hormone (TSH) 1.752 uIU/mL (0.358-3.74) Test 12/08/17 20:59 12/09/17 08:02 12/09/17 11:47 12/09/17 16:49 Glucose (Fingerstick) 310 mg/dL (70-99) 218 mg/dL (70-99) 271 mg/dL (70-99) 314 mg/dL (70-99) Test 12/09/17 20:43 Glucose (Fingerstick) 316 mg/dL (70-99) Laboratory Tests Test 12/09/17 08:02 12/09/17 11:47 12/09/17 16:49 12/09/17 20:43 Glucose (Fingerstick) 218 mg/dL (70-99) 271 mg/dL (70-99) 314 mg/dL (70-99) 316 mg/dL (70-99) Microbiology 12/05/17 Urine Culture - Final, Complete 12/05/17 Urine Culture Result 1 (GUMARO) - Final, Complete 12/05/17 Antimicrobic Susceptibility - Final, Complete Medications Current Medications Sodium Chloride 1,000 ml @ 1,000 mls/hr 1X ONCE IV Last administered on 12/05at 02:55; Start 12/05/17 at 02:30; Stop 12/05/17 at 03:29; Status DC Ondansetron HCl (Zofran) 4 mg 1X ONCE IV Last administered on 12/05/17at 02:48 ; Start 12/05/17 at 02:30; Stop 12/05/17 at 02:31; Status DC Famotidine (Pepcid Vial) 20 mg 1X ONCE IVP Last administered on 12/05/17at 02: 49; Start 12/05/17 at 02:30; Stop 12/05/17 at 02:31; Status DC Ceftriaxone Sodium 50 ml @ 100 mls/hr 1X ONCE IV Last administered on at 04:29; Start 12/05/17 at 04:30; Stop 12/05/17 at 04:59; Status DC Heparin Sodium (Porcine) (Heparin Sodium) 4,000 unit 1X ONCE IV Last administered on 12/05/17at 04:24; Start 12/05/17 at 04:30; Stop 12/05/17 at 13 :04; Status DC Heparin Sodium/ Dextrose 500 ml @ 0 mls/hr CONT PRN IV SEE I/O RECORD Last administered on 12/05/17at 04:40; Start 12/05/17 at 04:15; Stop 12/05/17 at 13 :04; Status DC Aspirin (Marilee Aspirin) 325 mg 1X ONCE PO Last administered on 12/05/17at 04: 31; Start 12/05/17 at 05:00; Stop 12/05/17 at 05:01; Status DC Ondansetron HCl (Zofran) 4 mg PRN Q8HRS PRN IV NAUSEA/VOMITING 1ST CHOICE; Start 12/05/17 at 04:30; Stop 12/06/17 at 04:29; Status DC Fentanyl Citrate (Fentanyl 2ml Vial) 50 mcg PRN Q2HR PRN IV SEVERE PAIN; Start 12/05/17 at 04:30; Stop 12/06/17 at 04:29; Status DC Insulin Human Lispro (HumaLOG) 0-5 UNITS TIDWMEALS SQ Last administered on at 17:38; Start 12/05/17 at 08:00; Stop 12/07/17 at 21:04; Status DC Dextrose (Dextrose 50%-Water Syringe) 12.5 gm PRN Q15MIN PRN IV SEE COMMENTS; Start 12/05/17 at 04:30 Influenza Virus Vaccine (Afluria Trivalent [id number] Syringe) 0.5 ml ONCE ONCE VAX IM Last administered on 12/05/17at 15:18; Start 12/05/17 at 09:00; Stop 12/05/17 at 09:01; Status DC Sodium Chloride 1,000 ml @ 75 mls/hr 1X ONCE IV Last administered on at 11:31; Start 12/05/17 at 10:15; Stop 12/05/17 at 23:34; Status DC Magnesium Sulfate 50 ml @ 25 mls/hr 1X ONCE IV Last administered on at 15:13; Start 12/05/17 at 11:15; Stop 12/05/17 at 13:14; Status DC Lidocaine HCl (Xylocaine-Mpf 1% 2ml Vial) 2 ml STK-MED ONCE .ROUTE ; Start at 11:11; Stop 12/05/17 at 11:12; Status DC Heparin Sodium/ Sodium Chloride 500 ml @ As Directed STK-MED ONCE .ROUTE ; Start 12/05/17 at 11:11; Stop 12/05/17 at 11:12; Status DC Iodixanol (Visipaque 320) 100 ml STK-MED ONCE .ROUTE ; Start 12/05/17 at 11:31 ; Stop 12/05/17 at 11:32; Status DC Fentanyl Citrate (Fentanyl 2ml Vial) 100 mcg STK-MED ONCE .ROUTE ; Start at 11:33; Stop 12/05/17 at 11:34; Status DC Midazolam HCl (Versed) 2 mg STK-MED ONCE .ROUTE ; Start 12/05/17 at 11:33; Stop 12/05/17 at 11:34; Status DC Verapamil HCl (Verapamil) 5 mg STK-MED ONCE .ROUTE ; Start 12/05/17 at 11:34; Stop 12/05/17 at 11:35; Status DC Heparin Sodium (Porcine) (Heparin Sodium) 10,000 unit STK-MED ONCE .ROUTE ; Start 12/05/17 at 11:34; Stop 12/05/17 at 11:35; Status DC Nitroglycerin (Nitroglycerin) 200 mcg STK-MED ONCE .ROUTE ; Start 12/05/17 at 11:34; Stop 12/05/17 at 11:35; Status DC Iohexol (Omnipaque 300 Mg/ml) 100 ml STK-MED ONCE .ROUTE ; Start 12/05/17 at 12 :17; Stop 12/05/17 at 12:18; Status DC Bivalirudin (Angiomax) 250 mg STK-MED ONCE IV ; Start 12/05/17 at 12:21; Stop 12/05/17 at 12:22; Status DC Iodixanol (Visipaque 320) 100 ml STK-MED ONCE .ROUTE ; Start 12/05/17 at 12:44 ; Stop 12/05/17 at 12:45; Status DC Nitroglycerin (Nitroglycerin) 200 mcg 1X ONCE IART Last administered on at 13:00; Start 12/05/17 at 13:00; Stop 12/05/17 at 13:13; Status DC Verapamil HCl (Verapamil) 2.5 mg 1X ONCE IART Last administered on 12/05/17at 13:00; Start 12/05/17 at 13:00; Stop 12/05/17 at 13:13; Status DC Heparin Sodium (Porcine) (Heparin Sodium) 2,500 unit 1X ONCE IART Last administered on 12/05/17at 13:00; Start 12/05/17 at 13:00; Stop 12/05/17 at 13 :13; Status DC Heparin Sodium/ Sodium Chloride (HEPARIN for ARTERIAL LINE FLUSH) 1,000 unit 1X ONCE IART Last administered on 12/05/17at 13:00; Start 12/05/17 at 13:00; Stop 12/05/17 at 13:13; Status DC Midazolam HCl (Versed) 2 mg 1X ONCE IV Last administered on 12/05/17at 13:00; Start 12/05/17 at 13:00; Stop 12/05/17 at 13:13; Status DC Fentanyl Citrate (Fentanyl 2ml Vial) 100 mcg 1X ONCE IV Last administered on 12/05/17at 13:00; Start 12/05/17 at 13:00; Stop 12/05/17 at 13:13; Status DC Iodixanol (Visipaque 320) 100 ml 1X ONCE IART Last administered on 12/05/17at 13:00; Start 12/05/17 at 13:00; Stop 12/05/17 at 13:13; Status DC Bivalirudin (Angiomax) 250 mg 1X ONCE IV Last administered on 12/05/17at 13:00 ; Start 12/05/17 at 13:00; Stop 12/05/17 at 13:13; Status DC Clopidogrel Bisulfate (Plavix) 600 mg 1X ONCE PO Last administered on at 13:00; Start 12/05/17 at 13:00; Stop 12/05/17 at 13:13; Status DC Lidocaine HCl (Xylocaine-Mpf 1% 2ml Vial) 2 ml 1X ONCE INJ Last administered on 12/05/17at 13:00; Start 12/05/17 at 13:00; Stop 12/05/17 at 13:13; Status DC Info (CONTRAST GIVEN -- Rx MONITORING) 1 each PRN DAILY PRN MC SEE COMMENTS; Start 12/05/17 at 13:15; Stop 12/07/17 at 13:14; Status DC Sodium Chloride 1,000 ml @ 100 mls/hr Q10H IV Last administered on 12/06/17at 04:23; Start 12/05/17 at 13:01; Stop 12/07/17 at 12:10; Status DC Aspirin (Ecotrin) 325 mg DAILYWBKFT PO Last administered on 12/09/17at 08:09; Start 12/06/17 at 08:00 Clopidogrel Bisulfate (Plavix) 75 mg DAILYWBKFT PO Last administered on 08:09; Start 12/06/17 at 08:00 Atorvastatin Calcium (Lipitor) 20 mg QHS PO Last administered on 12/05/17at 21: 11; Start 12/05/17 at 21:00; Stop 12/06/17 at 11:19; Status DC Acetaminophen (Tylenol) 650 mg PRN Q6HRS PRN PO MILD PAIN / TEMP Last administered on 12/09/17 21:01; Start 12/05/17 at 13:15 Nitroglycerin (Nitrostat) 0.4 mg PRN Q5MIN PRN SL CHEST PAIN; Start 12/05/17 at 13:15 Ceftriaxone Sodium (Rocephin) 1 gm Q24H IVP Last administered on 12/06/17at 09: 23; Start 12/06/17 at 08:00; Stop 12/06/17 at 15:28; Status DC Carvedilol (Coreg) 6.25 mg BIDWMEALS PO Last administered on 12/09/17 17:28; Start 12/05/17 at 17:00 Citalopram Hydrobromide (CeleXA) 20 mg DAILY PO Last administered on 08:09; Start 12/06/17 at 09:00 Tamsulosin HCl (Flomax) 0.4 mg HS PO Last administered on 12/09/17at 19:46; Start 12/05/17 at 21:00 Memantine (Namenda) 10 mg DAILY PO Last administered on 12/09/17 08:08; Start 12/06/17 at 09:00 Magnesium Sulfate 50 ml @ 25 mls/hr 1X ONCE IV Last administered on at 11:57; Start 12/06/17 at 10:00; Stop 12/06/17 at 11:59; Status DC Atorvastatin Calcium (Lipitor) 40 mg QHS PO Last administered on 12/09/17 19: 46; Start 12/06/17 at 21:00 Lisinopril (Prinivil) 5 mg DAILY PO Last administered on 12/09/17at 08:08; Start 12/06/17 at 12:30 Cefpodoxime Proxetil (Vantin) 200 mg BID PO Last administered on 12/09/17at 19: 46; Start 12/06/17 at 21:00 Lactobacillus Rhamnosus (Culturelle) 1 cap BID PO Last administered on at 19:46; Start 12/07/17 at 09:00 Insulin Glargine (Lantus) 6 units QHS SQ Last administered on 12/09/17at 21:28 ; Start 12/07/17 at 21:15 Insulin Human Lispro (HumaLOG) 0-5 UNITS QIDACHS SQ Last administered on at 21:27; Start 12/08/17 at 07:30 Insulin Human Lispro (HumaLOG) 4 units 1X ONCE SQ Last administered on at 21:29; Start 12/07/17 at 21:15; Stop 12/07/17 at 21:16; Status DC Active Scripts Active Reported Humalog (Insulin Lispro) 100 Unit/1 Ml Vial 20 Unit SQ TIDBFRMEAL Cefpodoxime Proxetil 200 Mg Tablet 1 Tab PO BID 7 Days Citalopram Hbr (Citalopram Hydrobromide) 20 Mg Tablet 1 Tab PO DAILY Terazosin Hcl 5 Mg Capsule 1 Cap PO QHS Coreg (Carvedilol) 6.25 Mg Tablet 1 Tab PO BID Lantus Solostar (Insulin Glargine,Hum.rec.anlog) 100 Unit/1 Ml Insuln.pen 60 Unit SQ DAILY Tamsulosin Hcl 0.4 Mg Cap.er.24h 0.4 Mg PO HS Protonix (Pantoprazole Sodium) 20 Mg Tablet.dr 40 Mg PO DAILY Namenda (Memantine Hcl) 10 Mg Tablet 10 Mg PO DAILY Vitals/I & O Vital Sign - Last 24 Hours 12/09/17 12/09/17 12/09/17 12/09/17 07:31 07:50 08:08 08:09 Temp 98.2 98.2 Pulse 80 80 80 Resp 18 B/P (MAP) 146/62 (90) 146/62 146/62 Pulse Ox 92 O2 Delivery Room Air Room Air 12/09/17 12/09/17 12/09/17 12/09/17 10:21 14:50 17:28 19:18 Temp 98.7 98.7 97.7 98.7 98.7 97.7 Pulse 64 66 66 64 Resp 18 18 18 B/P (MAP) 134/60 (84) 139/56 (83) 139/56 119/94 (102) Pulse Ox 96 92 95 O2 Delivery Room Air Room Air Room Air 12/09/17 12/09/17 12/10/17 20:00 23:12 03:05 Temp 97.7 97.9 97.7 97.9 Pulse 72 61 Resp 20 18 B/P (MAP) 129/85 (100) 145/54 (84) Pulse Ox 94 94 O2 Delivery Room Air Room Air Room Air Intake and Output 12/09/17 12/09/17 12/10/17 15:00 23:00 07:00 Intake Total 710 ml 500 ml Output Total 200 ml 700 ml 1000 ml Balance -200 ml 10 ml -500 ml MODE RAMOS MD Dec 10, 2017 07:10
[2017-12-10 07:20] VITALS: BP 159/78
[2017-12-10] MEDS: LISINOPRIL 5 MG TABLET. PO SCH (08:09)
[2017-12-10] MEDS: CARVEDILOL 6.25 MG TABLET. PO SCH ×2 (08:09→17:21)
[2017-12-10] MEDS: CEFPODOXIME PROXETIL 100 MG TABLET. PO SCH ×2 (08:09→20:16)
[2017-12-10] MEDS: LACTOBACILLUS RHAMNOSUS GG 1 CAPSULE. PO SCH ×2 (08:09→20:15)
[2017-12-10] MEDS: CLOPIDOGREL BISULFATE 75 MG TABLET PO SCH (08:09)
[2017-12-10] MEDS: MEMANTINE 10 MG TABLET. PO SCH (08:09)
[2017-12-10] MEDS: ASPIRIN ENTERIC COATED 325 MG TABLET.DR. PO SCH (08:09)
[2017-12-10] MEDS: CITALOPRAM 20 MG TABLET. PO SCH (08:09)
[2017-12-10] MEDS: INSULIN LISPRO 300 UNITS/3 ML INSULN.PEN. SQ SCH ×6 (08:14→21:56)
[2017-12-10 11:00] VITALS: BP 154/52
[2017-12-10 14:50] VITALS: BP 144/55
[2017-12-10 19:05] VITALS: BP 119/55
[2017-12-10] MEDS: TAMSULOSIN 0.4 MG CAP.ER.24H. PO SCH (20:16)
[2017-12-10] MEDS: ATORVASTATIN CALCIUM 40 MG TABLET. PO SCH (20:16)
[2017-12-10] MEDS ORDERED: INSULIN GLARGINE 300 UNITS/3 ML INSULN.PEN. SQ SCH (21:00)
[2017-12-10 23:03] VITALS: BP 158/68
[2017-12-11 03:00] VITALS: BP 148/60
[2017-12-11 07:10] VITALS: BP 158/72
--- NOTE | 2017-12-11 07:41 | PDOC ---
PROGRESS NOTES Chief Complaint Chief Complaint Fall Urinary tract infection NSTEMI Acute renal failure Confusion History of Present Illness History of Present Illness Patient is a 82 yo male presenting to the ED due to fall. States that he was getting out of bed but slipped down onto the floor. Denies head trauma, nor other trauma to any body part as he slid down on the "board". Pt did not lose consciousness. Couldn't get up for 30 minutes but ultimately his sister, with whom he lives, helped him and called the ambulance. Currently states that he feels sick and complains of right arm pain above the elbow. He also states that he vomited after having fallen and that he is nauseous. Denies chest pain, however, has a "heavy" left arm, and was noted with wide QRS and TWI in I and AVL on EKG in ED and troponin elevation to 0.4. CT head, c-spine, CXR, and right humerus x-ray showed no fractures or acute traumatic findings. Cr noted at 1.4 and UA with bacteria, positive LE and nitrites noted as well. Started on empiric antibiotics for UTI, heparin GTT for NSTEMI and admitted for further care. He has hx of CAD but could not remember of any past stents but the [facility] has been a while. Also he was told that he may need a defibrillator by a flight/transport nurse in [place] as well and feels he was going to move to [place] to have this done, now states he lives here and is not moving. PMHx HTN, HLP, DM2 and possibly with AFIB, does not recall all his medications because he has some dementia and forgetful. Currently he is AOx3 and presently denies any discomfort. To pit laborer 12/05 afternoon - left main stenting. No overnight events. Feeling ok this morning, having less difficulty ambulating and less word finding difficulty and less garbled speech occasionally. He would like to go home, but cannot stand unaided. Had SALES CONSULTANT INSUR[employer] shunt evaluation with no malfunctions noted. Denies CP, SOB today. He is still a bit confused, apparently per sister he is near baseline A/P: Fall - at home, normal imaging. Will get PT/OT to continue to see outpatient Urinary tract infection - likely cause of fall, Urine returns with [id number] colonies GNR of klebsiella, sensitive to Vantin, has Cipro and PCN allergies. NSTEMI - with a cardiac history, wide QRS, TWI, with increasing troponin. Consulted cardiology, heparin GTT. Post stent protocol for left main stenting Acute renal failure - likely pre-renal, but could be due to some mild obstruction and related to infection. Gentle fluids for now. 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 With his fall and urinary complaints as well as confusion , this is a possibility. Seems oriented to location and month, year, person. Light during day for now. Neuro consultation shows normal SALES CONSULTANT INSUR[employer] shunt Diet - Cardiac PPX - heparin DNR/DNI Inpatient for UTI treatment, needs skilled services on d/c to facility later today Vitals Vitals Vital Signs Date Time Temp Pulse Resp B/P (MAP) Pulse Ox O2 Delivery O2 Flow Rate FiO2 12/11/17 07:10 98.6 71 20 158/72 (100) 94 Room Air 98.6 Physical Exam General: Alert, Oriented X3, Cooperative, No acute distress Heart: Regular rate (SR), Normal S1, Normal S2, Other (3/6 systolic murmur to LLS border) Lungs: Clear Abdomen: Soft, No tenderness Extremities: No cyanosis Skin: No breakdown, No significant lesion Labs LABS Laboratory Tests Test 12/10/17 07:43 12/10/17 11:58 12/10/17 16:32 12/10/17 20:38 Glucose (Fingerstick) 258 mg/dL (70-99) 333 mg/dL (70-99) 216 mg/dL (70-99) 277 mg/dL (70-99) Assessment and Plan Assessmemt and Plan Problems Medical Problems: (1) Acute UTI Status: Acute (2) Elevated troponin Status: Acute (3) Renal insufficiency Status: Acute (4) Weakness Status: Acute Comment Review of Relevant I have reviewed the following items joshua (where applicable) has been applied. Labs Laboratory Tests Test 12/09/17 08:02 12/09/17 11:47 12/09/17 16:49 12/09/17 20:43 Glucose (Fingerstick) 218 mg/dL (70-99) 271 mg/dL (70-99) 314 mg/dL (70-99) 316 mg/dL (70-99) Test 12/10/17 07:43 12/10/17 11:58 12/10/17 16:32 12/10/17 20:38 Glucose (Fingerstick) 258 mg/dL (70-99) 333 mg/dL (70-99) 216 mg/dL (70-99) 277 mg/dL (70-99) Laboratory Tests Test 12/10/17 07:43 12/10/17 11:58 12/10/17 16:32 12/10/17 20:38 Glucose (Fingerstick) 258 mg/dL (70-99) 333 mg/dL (70-99) 216 mg/dL (70-99) 277 mg/dL (70-99) Microbiology 12/05/17 Urine Culture - Final, Complete 12/05/17 Urine Culture Result 1 (GUMARO) - Final, Complete 12/05/17 Antimicrobic Susceptibility - Final, Complete Medications Current Medications Sodium Chloride 1,000 ml @ 1,000 mls/hr 1X ONCE IV Last administered on 12/05at 02:55; Start 12/05/17 at 02:30; Stop 12/05/17 at 03:29; Status DC Ondansetron HCl (Zofran) 4 mg 1X ONCE IV Last administered on 12/05/17at 02:48 ; Start 12/05/17 at 02:30; Stop 12/05/17 at 02:31; Status DC Famotidine (Pepcid Vial) 20 mg 1X ONCE IVP Last administered on 12/05/17at 02: 49; Start 12/05/17 at 02:30; Stop 12/05/17 at 02:31; Status DC Ceftriaxone Sodium 50 ml @ 100 mls/hr 1X ONCE IV Last administered on at 04:29; Start 12/05/17 at 04:30; Stop 12/05/17 at 04:59; Status DC Heparin Sodium (Porcine) (Heparin Sodium) 4,000 unit 1X ONCE IV Last administered on 12/05/17at 04:24; Start 12/05/17 at 04:30; Stop 12/05/17 at 13 :04; Status DC Heparin Sodium/ Dextrose 500 ml @ 0 mls/hr CONT PRN IV SEE I/O RECORD Last administered on 12/05/17at 04:40; Start 12/05/17 at 04:15; Stop 12/05/17 at 13 :04; Status DC Aspirin (Marilee Aspirin) 325 mg 1X ONCE PO Last administered on 12/05/17at 04: 31; Start 12/05/17 at 05:00; Stop 12/05/17 at 05:01; Status DC Ondansetron HCl (Zofran) 4 mg PRN Q8HRS PRN IV NAUSEA/VOMITING 1ST CHOICE; Start 12/05/17 at 04:30; Stop 12/06/17 at 04:29; Status DC Fentanyl Citrate (Fentanyl 2ml Vial) 50 mcg PRN Q2HR PRN IV SEVERE PAIN; Start 12/05/17 at 04:30; Stop 12/06/17 at 04:29; Status DC Insulin Human Lispro (HumaLOG) 0-5 UNITS TIDWMEALS SQ Last administered on at 17:38; Start 12/05/17 at 08:00; Stop 12/07/17 at 21:04; Status DC Dextrose (Dextrose 50%-Water Syringe) 12.5 gm PRN Q15MIN PRN IV SEE COMMENTS; Start 12/05/17 at 04:30 Influenza Virus Vaccine (Afluria Trivalent [id number] Syringe) 0.5 ml ONCE ONCE VAX IM Last administered on 12/05/17at 15:18; Start 12/05/17 at 09:00; Stop 12/05/17 at 09:01; Status DC Sodium Chloride 1,000 ml @ 75 mls/hr 1X ONCE IV Last administered on at 11:31; Start 12/05/17 at 10:15; Stop 12/05/17 at 23:34; Status DC Magnesium Sulfate 50 ml @ 25 mls/hr 1X ONCE IV Last administered on at 15:13; Start 12/05/17 at 11:15; Stop 12/05/17 at 13:14; Status DC Lidocaine HCl (Xylocaine-Mpf 1% 2ml Vial) 2 ml STK-MED ONCE .ROUTE ; Start at 11:11; Stop 12/05/17 at 11:12; Status DC Heparin Sodium/ Sodium Chloride 500 ml @ As Directed STK-MED ONCE .ROUTE ; Start 12/05/17 at 11:11; Stop 12/05/17 at 11:12; Status DC Iodixanol (Visipaque 320) 100 ml STK-MED ONCE .ROUTE ; Start 12/05/17 at 11:31 ; Stop 12/05/17 at 11:32; Status DC Fentanyl Citrate (Fentanyl 2ml Vial) 100 mcg STK-MED ONCE .ROUTE ; Start at 11:33; Stop 12/05/17 at 11:34; Status DC Midazolam HCl (Versed) 2 mg STK-MED ONCE .ROUTE ; Start 12/05/17 at 11:33; Stop 12/05/17 at 11:34; Status DC Verapamil HCl (Verapamil) 5 mg STK-MED ONCE .ROUTE ; Start 12/05/17 at 11:34; Stop 12/05/17 at 11:35; Status DC Heparin Sodium (Porcine) (Heparin Sodium) 10,000 unit STK-MED ONCE .ROUTE ; Start 12/05/17 at 11:34; Stop 12/05/17 at 11:35; Status DC Nitroglycerin (Nitroglycerin) 200 mcg STK-MED ONCE .ROUTE ; Start 12/05/17 at 11:34; Stop 12/05/17 at 11:35; Status DC Iohexol (Omnipaque 300 Mg/ml) 100 ml STK-MED ONCE .ROUTE ; Start 12/05/17 at 12 :17; Stop 12/05/17 at 12:18; Status DC Bivalirudin (Angiomax) 250 mg STK-MED ONCE IV ; Start 12/05/17 at 12:21; Stop 12/05/17 at 12:22; Status DC Iodixanol (Visipaque 320) 100 ml STK-MED ONCE .ROUTE ; Start 12/05/17 at 12:44 ; Stop 12/05/17 at 12:45; Status DC Nitroglycerin (Nitroglycerin) 200 mcg 1X ONCE IART Last administered on at 13:00; Start 12/05/17 at 13:00; Stop 12/05/17 at 13:13; Status DC Verapamil HCl (Verapamil) 2.5 mg 1X ONCE IART Last administered on 12/05/17at 13:00; Start 12/05/17 at 13:00; Stop 12/05/17 at 13:13; Status DC Heparin Sodium (Porcine) (Heparin Sodium) 2,500 unit 1X ONCE IART Last administered on 12/05/17at 13:00; Start 12/05/17 at 13:00; Stop 12/05/17 at 13 :13; Status DC Heparin Sodium/ Sodium Chloride (HEPARIN for ARTERIAL LINE FLUSH) 1,000 unit 1X ONCE IART Last administered on 12/05/17at 13:00; Start 12/05/17 at 13:00; Stop 12/05/17 at 13:13; Status DC Midazolam HCl (Versed) 2 mg 1X ONCE IV Last administered on 12/05/17at 13:00; Start 12/05/17 at 13:00; Stop 12/05/17 at 13:13; Status DC Fentanyl Citrate (Fentanyl 2ml Vial) 100 mcg 1X ONCE IV Last administered on 12/05/17at 13:00; Start 12/05/17 at 13:00; Stop 12/05/17 at 13:13; Status DC Iodixanol (Visipaque 320) 100 ml 1X ONCE IART Last administered on 12/05/17at 13:00; Start 12/05/17 at 13:00; Stop 12/05/17 at 13:13; Status DC Bivalirudin (Angiomax) 250 mg 1X ONCE IV Last administered on 12/05/17at 13:00 ; Start 12/05/17 at 13:00; Stop 12/05/17 at 13:13; Status DC Clopidogrel Bisulfate (Plavix) 600 mg 1X ONCE PO Last administered on at 13:00; Start 12/05/17 at 13:00; Stop 12/05/17 at 13:13; Status DC Lidocaine HCl (Xylocaine-Mpf 1% 2ml Vial) 2 ml 1X ONCE INJ Last administered on 12/05/17at 13:00; Start 12/05/17 at 13:00; Stop 12/05/17 at 13:13; Status DC Info (CONTRAST GIVEN -- Rx MONITORING) 1 each PRN DAILY PRN MC SEE COMMENTS; Start 12/05/17 at 13:15; Stop 12/07/17 at 13:14; Status DC Sodium Chloride 1,000 ml @ 100 mls/hr Q10H IV Last administered on 12/06/17at 04:23; Start 12/05/17 at 13:01; Stop 12/07/17 at 12:10; Status DC Aspirin (Ecotrin) 325 mg DAILYWBKFT PO Last administered on 12/10/17at 08:09; Start 12/06/17 at 08:00 Clopidogrel Bisulfate (Plavix) 75 mg DAILYWBKFT PO Last administered on at 08:09; Start 12/06/17 at 08:00 Atorvastatin Calcium (Lipitor) 20 mg QHS PO Last administered on 12/05/17at 21: 11; Start 12/05/17 at 21:00; Stop 12/06/17 at 11:19; Status DC Acetaminophen (Tylenol) 650 mg PRN Q6HRS PRN PO MILD PAIN / TEMP Last administered on 12/09/17at 21:01; Start 12/05/17 at 13:15 Nitroglycerin (Nitrostat) 0.4 mg PRN Q5MIN PRN SL CHEST PAIN; Start 12/05/17 at 13:15 Ceftriaxone Sodium (Rocephin) 1 gm Q24H IVP Last administered on 12/06/17at 09: 23; Start 12/06/17 at 08:00; Stop 12/06/17 at 15:28; Status DC Carvedilol (Coreg) 6.25 mg BIDWMEALS PO Last administered on 12/10/17at 17:21; Start 12/05/17 at 17:00 Citalopram Hydrobromide (CeleXA) 20 mg DAILY PO Last administered on at 08:09; Start 12/06/17 at 09:00 Tamsulosin HCl (Flomax) 0.4 mg HS PO Last administered on 12/10/17at 20:16; Start 12/05/17 at 21:00 Memantine (Namenda) 10 mg DAILY PO Last administered on 12/10/17at 08:09; Start 12/06/17 at 09:00 Magnesium Sulfate 50 ml @ 25 mls/hr 1X ONCE IV Last administered on at 11:57; Start 12/06/17 at 10:00; Stop 12/06/17 at 11:59; Status DC Atorvastatin Calcium (Lipitor) 40 mg QHS PO Last administered on 12/10/17at 20: 16; Start 12/06/17 at 21:00 Lisinopril (Prinivil) 5 mg DAILY PO Last administered on 12/10/17at 08:09; Start 12/06/17 at 12:30 Cefpodoxime Proxetil (Vantin) 200 mg BID PO Last administered on 12/10/17at 20: 16; Start 12/06/17 at 21:00 Lactobacillus Rhamnosus (Culturelle) 1 cap BID PO Last administered on at 20:15; Start 12/07/17 at 09:00 Insulin Glargine (Lantus) 6 units QHS SQ Last administered on 12/09/17at 21:28 ; Start 12/07/17 at 21:15; Stop 12/10/17 at 11:35; Status DC Insulin Human Lispro (HumaLOG) 0-5 UNITS QIDACHS SQ Last administered on at 21:56; Start 12/08/17 at 07:30 Insulin Human Lispro (HumaLOG) 4 units 1X ONCE SQ Last administered on at 21:29; Start 12/07/17 at 21:15; Stop 12/07/17 at 21:16; Status DC Insulin Glargine (Lantus) 10 units QHS SQ Last administered on 12/10/17at 21:48 ; Start 12/10/17 at 21:00 Insulin Human Lispro (HumaLOG) 5 units TIDWMEALS SQ Last administered on at 17:23; Start 12/10/17 at 12:00 Active Scripts Active Reported Humalog (Insulin Lispro) 100 Unit/1 Ml Vial 20 Unit SQ TIDBFRMEAL Cefpodoxime Proxetil 200 Mg Tablet 1 Tab PO BID 7 Days Citalopram Hbr (Citalopram Hydrobromide) 20 Mg Tablet 1 Tab PO DAILY Terazosin Hcl 5 Mg Capsule 1 Cap PO QHS Coreg (Carvedilol) 6.25 Mg Tablet 1 Tab PO BID Lantus Solostar (Insulin Glargine,Hum.rec.anlog) 100 Unit/1 Ml Insuln.pen 60 Unit SQ DAILY Tamsulosin Hcl 0.4 Mg Cap.er.24h 0.4 Mg PO HS Protonix (Pantoprazole Sodium) 20 Mg Tablet.dr 40 Mg PO DAILY Namenda (Memantine Hcl) 10 Mg Tablet 10 Mg PO DAILY Vitals/I & O Vital Sign - Last 24 Hours 12/10/17 12/10/17 12/10/17 12/10/17 08:00 08:09 08:09 11:00 Temp 98.3 98.3 Pulse 61 61 69 Resp 18 B/P (MAP) 145/54 145/54 154/52 (86) Pulse Ox 93 O2 Delivery Room Air Room Air 12/10/17 12/10/17 12/10/17 12/10/17 14:50 17:21 19:05 20:00 Temp 98.5 98.5 98.5 98.5 Pulse 62 62 64 Resp 20 20 B/P (MAP) 144/55 (84) 144/55 119/55 (76) Pulse Ox 94 96 O2 Delivery Room Air Room Air Room Air 12/10/17 12/11/17 12/11/17 23:03 03:00 07:10 Temp 98.6 98.3 98.6 98.6 98.3 98.6 Pulse 62 66 71 Resp 20 20 20 B/P (MAP) 158/68 (98) 148/60 (89) 158/72 (100) Pulse Ox 95 93 94 O2 Delivery Room Air Room Air Room Air Intake and Output 12/10/17 12/10/17 12/11/17 15:00 23:00 07:00 Intake Total 720 ml 450 ml 640 ml Output Total 300 ml 300 ml 575 ml Balance 420 ml 150 ml 65 ml MODE RAMOS MD Dec 11, 2017 07:41
[2017-12-11] MEDS: ASPIRIN ENTERIC COATED 325 MG TABLET.DR. PO SCH (08:36)
[2017-12-11] MEDS: MEMANTINE 10 MG TABLET. PO SCH (08:36)
[2017-12-11] MEDS: CARVEDILOL 6.25 MG TABLET. PO SCH (08:37)
[2017-12-11] MEDS: LISINOPRIL 5 MG TABLET. PO SCH (08:37)
[2017-12-11] MEDS: LACTOBACILLUS RHAMNOSUS GG 1 CAPSULE. PO SCH (08:37)
[2017-12-11] MEDS: CLOPIDOGREL BISULFATE 75 MG TABLET PO SCH (08:37)
[2017-12-11] MEDS: CEFPODOXIME PROXETIL 100 MG TABLET. PO SCH (08:39)
[2017-12-11] MEDS: CITALOPRAM 20 MG TABLET. PO SCH (08:39)
[2017-12-11] MEDS: INSULIN LISPRO 300 UNITS/3 ML INSULN.PEN. SQ SCH ×4 (08:43→12:35)
[2017-12-11] MEDS ORDERED: CEFP200T PO (09:40)
[2017-12-11] MEDS ORDERED: INSU100V SQ (09:40)
[2017-12-11] MEDS ORDERED: LISI-338 PO (09:40)
[2017-12-11] MEDS ORDERED: NITR0.4T SL (09:40)
[2017-12-11] MEDS ORDERED: CLOP75TA PO (09:40)
[2017-12-11] MEDS ORDERED: INSU100I13 SQ (09:40)
[2017-12-11] MEDS ORDERED: ATOR40TA59 PO (09:40)
[2017-12-11] MEDS ORDERED: ASPI-612 PO (09:41)
--- NOTE | 2017-12-11 09:43 | DISCH ---
DISCHARGE DISCHARGE INFORMATION: DISCHARGE DATE: Dec 11, 2017 FINAL DIAGNOSIS Problems Medical Problems: (1) Acute UTI Status: Acute (2) Elevated troponin Status: Acute (3) Renal insufficiency Status: Acute (4) Weakness Status: Acute CONDITION ON DISCHARGE: Stable CODE STATUS: Code Status: DNR/DNI CARE HOME: SNF STAY <30 DAYS: Yes HOSPICE: HOSPICE: No HOSPICE EVAL & TREAT: No LTAC: ADMIT TO LTAC: No POST DISCHARGE ORDERS: ACTIVITY ORDERS: Activity as tolerated WEIGHT BEARING STATUS: No restrictions DIET AFTER DISCHARGE: Cardiac (Carb consistent as well) CHECKS AFTER DISCHARGE: CHECKS AFTER DISCHARGE: Check blood press - daily, Check blood sugar, ac/hs, Weigh Yourself Daily FOLLOW-UP: PHYSICIAN FOLLOW-UP: Dr. Patrick - Cardiology 01/17/18 TREATMENT/EQUIPMENT ORDERS: ADAPTIVE EQUIPMENT NEEDED: None Physical Therapy For: Evalulation/Treatment Occupational Therapy For: Evaluation/Treatment DISCHARGE MEDICATIONS: Home Meds Active Scripts Aspirin (ASPIRIN EC) 81 Mg Tablet.dr, 81 MG PO DAILY for 30 Days, #30 TAB.SR 11 Refills Prov:MODE RAMOS MD 12/11/17 Lisinopril (LISINOPRIL) 5 Mg Tablet, 5 MG PO DAILY for 30 Days, #30 TAB 11 Refills Prov:MODE RAMOS MD 12/11/17 Nitroglycerin (NITROSTAT) 0.4 Mg Tab.subl, 0.4 MG SL PRN Q5MIN PRN for CHEST PAIN for 30 Days, #9 TAB 11 Refills Prov:MODE RAMOS MD 12/11/17 Atorvastatin Calcium (ATORVASTATIN CALCIUM) 40 Mg Tablet, 40 MG PO QHS for 30 Days, #30 TAB 11 Refills Prov:MODE RAMOS MD 12/11/17 Clopidogrel Bisulfate (CLOPIDOGREL) 75 Mg Tablet, 75 MG PO DAILYWBKFT for 30 Days, #30 TAB 11 Refills Prov:MODE RAMOS MD 12/11/17 Insulin Lispro (HUMALOG) 100 Unit/1 Ml Vial, 10 UNIT SQ TIDBFRMEAL for 30 Days, VIAL Prov:MODE RAMOS MD 12/11/17 Cefpodoxime Proxetil (CEFPODOXIME PROXETIL) 200 Mg Tablet, 1 TAB PO BID for 14 Days, #28 TAB Prov:MODE RAMOS MD 12/11/17 Insulin Glargine,Hum.rec.anlog (LANTUS SOLOSTAR) 100 Unit/1 Ml Insuln.pen, 40 UNIT SQ DAILY for 30 Days, #15 ML 3 Refills Prov:MODE RAMOS MD 12/11/17 Reported Medications Citalopram Hydrobromide (CITALOPRAM HBR) 20 Mg Tablet, 1 TAB PO DAILY, #30 TAB 5 Refills 08/29/17 Terazosin Hcl (TERAZOSIN HCL) 5 Mg Capsule, 1 CAP PO QHS, #30 CAP 5 Refills 08/29/17 Carvedilol (COREG) 6.25 Mg Tablet, 1 TAB PO BID, #180 TAB 1 Refill 08/29/17 Tamsulosin Hcl (TAMSULOSIN HCL) 0.4 Mg Cap.er.24h, 0.4 MG PO HS, TAB 08/29/17 Pantoprazole Sodium (PROTONIX) 20 Mg Tablet.dr, 40 MG PO DAILY, TAB 08/29/17 Memantine Hcl (NAMENDA) 10 Mg Tablet, 10 MG PO DAILY, TAB 08/29/17 Discontinued Reported Medications Insulin Lispro (HUMALOG) 100 Unit/1 Ml Cartridge, 15 UNIT SQ TIDAC, EACH 08/29/17 Rivastigmine (EXELON 4.6mg/24hr) 1 Each Patch.td24, 1 PATCH TP DAILY, #30 PATCH 3 Refills 08/29/17 MODE RAMOS MD Dec 11, 2017 09:43
--- NOTE | 2017-12-11 09:45 | PDOC3 ---
Discharge Summary Visit Information Date of Admission: Dec 05, 2017 Date of Discharge: Dec 11, 2017 Admitting Diagnosis: NSTEMI, ARF, UTI, Encephalopathy Final Diagnosis Problems Medical Problems: (1) Acute UTI Status: Acute (2) Elevated troponin Status: Acute (3) Renal insufficiency Status: Acute (4) Weakness Status: Acute Brief Hospital Course Allergies Allergies Coded Allergies Type Severity Reaction Last Updated Verified Penicillins Allergy Severe swelling all over 09/02/17 Yes ciprofloxacin Allergy Intermediate 08/29/17 Yes codeine Allergy Intermediate 08/29/17 Yes hydrocodone Allergy Intermediate 08/29/17 Yes oxycodone Allergy Intermediate 08/29/17 Yes Vital Signs Vital Signs Date Time Temp Pulse Resp B/P (MAP) Pulse Ox O2 Delivery O2 Flow Rate FiO2 12/11/17 08:37 71 158/72 12/11/17 08:00 Room Air 12/11/17 07:10 98.6 20 94 98.6 Lab Results Laboratory Tests Test 12/09/17 11:47 12/09/17 16:49 12/09/17 20:43 12/10/17 07:43 Glucose (Fingerstick) 271 mg/dL (70-99) 314 mg/dL (70-99) 316 mg/dL (70-99) 258 mg/dL (70-99) Test 12/10/17 11:58 12/10/17 16:32 12/10/17 20:38 12/11/17 07:12 Glucose (Fingerstick) 333 mg/dL (70-99) 216 mg/dL (70-99) 277 mg/dL (70-99) 225 mg/dL (70-99) Laboratory Tests Test 12/10/17 11:58 12/10/17 16:32 12/10/17 20:38 12/11/17 07:12 Glucose (Fingerstick) 333 mg/dL (70-99) 216 mg/dL (70-99) 277 mg/dL (70-99) 225 mg/dL (70-99) Brief Hospital Course Patient is a 82 yo male presenting to the ED due to fall. States that he was getting out of bed but slipped down onto the floor. Denies head trauma, nor other trauma to any body part as he slid down on the "board". Pt did not lose consciousness. Couldn't get up for 30 minutes but ultimately his sister, with whom he lives, helped him and called the ambulance. Currently states that he feels sick and complains of right arm pain above the elbow. He also states that he vomited after having fallen and that he is nauseous. Denies chest pain, however, has a "heavy" left arm, and was noted with wide QRS and TWI in I and AVL on EKG in ED and troponin elevation to 0.4. CT head, c-spine, CXR, and right humerus x-ray showed no fractures or acute traumatic findings. Cr noted at 1.4 and UA with bacteria, positive LE and nitrites noted as well. Started on empiric antibiotics for UTI, heparin GTT for NSTEMI and admitted for further care. He has hx of CAD but could not remember of any past stents but the [facility] has been a while. Also he was told that he may need a defibrillator by a director of district office in [place] as well and feels he was going to move to [place] to have this done, now states he lives here and is not moving. PMHx HTN, HLP, DM2 and possibly with AFIB, does not recall all his medications because he has some dementia and forgetful. He is AOx3 and presently denies any discomfort. To clinical laboratory technician 12/05 afternoon - left main stenting. Seen by neurology for his initial confusion, had OIL PRODUCER shunt evaluation with no malfunctions noted. Denies CP, SOB today. He is still a bit confused, apparently per sister he is near baseline A/P: Fall - at home, normal imaging. Will get PT/OT to continue to see in SNF Urinary tract infection - likely cause of fall, Urine returns with [id number] colonies GNR of klebsiella, sensitive to Vantin, has Cipro and PCN allergies. 2 week course for male UTI, should have repeat urine culture and PSA to test for clearance NSTEMI - with a cardiac history, wide QRS, TWI, with increasing troponin. Consulted cardiology, heparin GTT. Post stent protocol for left main stenting. ASA and plavix for next 12 months Acute renal failure - likely pre-renal, but could be due to some mild obstruction and related to infection. Gentle fluids improved this. 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 With his fall and urinary complaints as well as confusion , this is a possibility. Seems oriented to location and month, year, person. Light during day for now. Neuro consultation shows normal OIL PRODUCER shunt DM - control with insulin basal bolus plus regimen Diet - Cardiac PPX - heparin DNR/DNI Needs skilled services on d/c to facility later today Discharge Information Condition at Discharge: Improved Follow Up: Weeks (2) Disposition/Orders: D/C to Another Facility ([facility]) Scheduled Aspirin (Aspirin Ec) 81 Mg Tablet.dr, 81 MG PO DAILY for 30 Days, #30 Ref 11 Prescribed by: MODE RAMOS MD on 12/11/17 0941 Atorvastatin Calcium (Atorvastatin Calcium) 40 Mg Tablet, 40 MG PO QHS for 30 Days, #30 Ref 11 Prescribed by: MODE RAMOS MD on 12/11/17 0940 Carvedilol (Coreg) 6.25 Mg Tablet, 1 TAB PO BID, #180 Ref 1 (Reported) Entered as Reported by: YANE RUSSELL on 08/29/171755 Last Action: Continued on 12/05/171627 by MODE RAMOS MD Cefpodoxime Proxetil (Cefpodoxime Proxetil) 200 Mg Tablet, 1 TAB PO BID for 14 Days, #28 Prescribed by: MODE RAMOS MD on 12/11/17 0940 Citalopram Hydrobromide (Citalopram Hbr) 20 Mg Tablet, 1 TAB PO DAILY, #30 Ref 5 (Reported) Entered as Reported by: YANE RUSSELL on 08/29/171755 Last Action: Continued on 12/05/171627 by MODE RAMOS MD Clopidogrel Bisulfate (Clopidogrel) 75 Mg Tablet, 75 MG PO DAILYWBKFT for 30 Days, #30 Ref 11 Prescribed by: MODE RAMOS MD on 12/11/17 0940 Insulin Glargine,Hum.rec.anlog (Lantus Solostar) 100 Unit/1 Ml Insuln.pen, 40 UNIT SQ DAILY for 30 Days, #15 Ref 3 Prescribed by: MODE RAMOS MD on 12/11/17 0940 Insulin Lispro (Humalog) 100 Unit/1 Ml Vial, 10 UNIT SQ TIDBFRMEAL for 30 Days Prescribed by: MODE RAMOS MD on 12/11/17 0940 Lisinopril (Lisinopril) 5 Mg Tablet, 5 MG PO DAILY for 30 Days, #30 Ref 11 Prescribed by: MODE RAMOS MD on 12/11/17 0940 Memantine Hcl (Namenda) 10 Mg Tablet, 10 MG PO DAILY, (Reported) Entered as Reported by: YANE RUSSELL on 08/29/171755 Last Action: Converted on 12/05/171627 by MODE RAMOS MD Pantoprazole Sodium (Protonix) 20 Mg Tablet.dr, 40 MG PO DAILY, (Reported) Entered as Reported by: YANE RUSSELL on 08/29/171755 Last Action: HELD on 12/05/171626 by MODE RMAOS MD Tamsulosin Hcl (Tamsulosin Hcl) 0.4 Mg Cap.er.24h, 0.4 MG PO HS, (Reported) Entered as Reported by: YANE RUSSELL on 08/29/171755 Last Action: Continued on 12/05/171627 by MODE RAMOS MD Terazosin Hcl (Terazosin Hcl) 5 Mg Capsule, 1 CAP PO QHS, #30 Ref 5 (Reported) Entered as Reported by: YANE RUSSELL on 08/29/171755 Last Action: HELD on 12/05/171626 by MODE RAMOS MD Scheduled PRN Nitroglycerin (Nitrostat) 0.4 Mg Tab.subl, 0.4 MG SL PRN Q5MIN PRN for CHEST PAIN for 30 Days, #9 Ref 11 Prescribed by: MODE RAMOS MD on 12/11/17 0940 Discontinued Medications Insulin Lispro (Humalog) 100 Unit/1 Ml Cartridge, 15 UNIT SQ TIDAC, (Reported) Entered as Reported by: YANE RUSSELL on 08/29/171755 Last Action: Discontinued on 12/05/171622 by BRYAN CACERES Rivastigmine (EXELON 4.6mg/24hr) 1 Each Patch.td24, 1 PATCH TP DAILY, #30 Ref 3 (Reported) Entered as Reported by: YANE RUSSELL on 08/29/171755 Last Action: Discontinued on 12/05/171622 by MODE CALERO MD Dec 11, 2017 09:45
[2017-12-11 10:24] VITALS: BP 115/56
--- NOTE | 2017-12-11 14:37 | PDOC ---
PROGRESS NOTES Assessment Assessment Generalized weakness. UTI. Fall. Shunt malfunction? Ventriculomegaly. DM. HTN. CAD, left main 70-80% stenosis, s/p stent. CHF, EF 45%. Dementia feature. Old CVA. Over weight. RECOMMENDATIONS/PLAN: Treat UTI. Treat medical and cardiac diseases. OT/PT. FU with PCP. Shunt series: No obstruction. HISTORY OF THE PRESENT ILLNESS: 82-y-old male patient with Hx of ventriculomegaly s/p shunt placement about 19 years ago. He slipped from bed to floor on 12/05 but he was unable to get up due to generalized weakness. No focalized sensory or motor deficits. PAST MEDICAL HISTORY Cardiovascular: AFIB (?), CAD, CHF, HTN, Hyperlipidemia Pulmonary: COPD, Pneumonia CENTRAL NERVOUS SYSTEM: CVA, Dementia GI: GERD Hepatobiliary: Cirrhosis Psych: Anxiety Musculoskeletal: low back pain, Osteoarthritis, Other (falls) Rheumatologic: No pertinent hx Infectious disease: No pertinent hx ENT: Other (morongo) Renal/: Urinary Incontinence Endocrine: Diabetes Dermatology: No pertinent hx PAST SURGICAL HISTORY [facility]. FAMILY HISTORY Unknown SOCIAL HISTORY Smoke: Quit ALCOHOL: occassional Drugs: None Lives: with Family ALLERGY: Reviewed. MEDICATIONS: Refer to [facility] REVIEW OF SYSTEMS: Constitutional: No malnutrition, weight loss, cachexia. Head: No traumatic brain or head injury. Skin: No edema, or rash. Ear: No infection. Eyes: No vision loss or color blindness. Nose: No bleeding or purulent discharges. Hearing: No hearing decrease. Neck: No injury. Cardiac: CAD, HTN. Pulmonary: No COPD. GI: No GI ulcer, GI bleeding. Urinary/genital: UTI. Endocrinologic: Diabetes Mellitus. Skeletomuscular: Generalized weakness. Neurological: see HP. Psychiatric: Denies drug use/abuse. Otherwise, not [id number] review of systems. PHYSICAL EXAMINATION: General appearance is in no acute distress. HEENT: Normocephalic and nontraumatic. Eyes, nose, ears, and throat are unremarkable. Neck is supple. No lymphadenopathy. No crepitus. Cardiovascular: S1, S2, regular rate and rhythm. Pulmonary: Clear to auscultation bilaterally. Abdomen: Bowel sounds are positive. Extremities: No rash, lesions, or edema. No restriction of range of motion NEUROLOGICAL EXAMINATION: Awake. Sitting in chair. Oriented partially to time, place and person. PERRL. EOMI. CN: no focal findings. Muscle tone: within normal. Muscle strength: 4+ DTR: 1-2 Plantar reflex: Neutral response bilaterally Gait: Able to walk with a walker. Sensory exam: no abnormal findings. No cerebellar signs elicited. F-T-N test fine. Objective Objective Vital Signs Date Time Temp Pulse Resp B/P (MAP) Pulse Ox O2 Delivery O2 Flow Rate FiO2 12/11/17 10:24 98.2 68 20 115/56 (75) 96 Room Air 98.2 12/11/17 10:13 2.0 Intake and Output 12/11/17 07:00 Intake Total 1810 ml Output Total 1175 ml Balance 635 ml Intake Oral 1810 ml Output Urine Total 1175 ml Vitals Signs Vitals VS - Last 72 Hours, by Label Date Time Temp Pulse Resp B/P (MAP) Pulse Ox O2 Delivery O2 Flow Rate FiO2 12/11/17 10:24 98.2 68 20 115/56 (75) 96 Room Air 98.2 12/11/17 10:13 Room Air 2.0 12/11/17 08:37 71 158/72 12/11/17 08:37 71 158/72 12/11/17 08:00 Room Air 12/11/17 07:10 98.6 71 20 158/72 (100) 94 Room Air 98.6 12/11/17 03:00 98.3 66 20 148/60 (89) 93 Room Air 98.3 12/10/17 23:03 98.6 62 20 158/68 (98) 95 Room Air 98.6 12/10/17 20:00 Room Air 12/10/17 19:05 98.5 64 20 119/55 (76) 96 Room Air 98.5 12/10/17 17:21 62 144/55 12/10/17 14:50 98.5 62 20 144/55 (84) 94 Room Air 98.5 12/10/17 11:00 98.3 69 18 154/52 (86) 93 Room Air 98.3 12/10/17 08:09 61 145/54 12/10/17 08:09 61 145/54 12/10/17 08:00 Room Air 12/10/17 07:20 98.1 68 22 159/78 (105) 93 Room Air 98.1 Laboratory Laboratory Laboratory Tests Test 12/10/17 16:32 12/10/17 20:38 12/11/17 07:12 12/11/17 10:26 Glucose (Fingerstick) 216 mg/dL (70-99) 277 mg/dL (70-99) 225 mg/dL (70-99) 291 mg/dL (70-99) Microbiology 12/05/17 Urine Culture - Final, Complete 12/05/17 Urine Culture Result 1 (GUMARO) - Final, Complete 12/05/17 Antimicrobic Susceptibility - Final, Complete Medication Medications Current Medications Insulin Glargine (Lantus) 10 units QHS SQ Last administered on 12/10/17at 21:48 ; Start 12/10/17 at 21:00; Stop 12/11/17 at 14:30; Status DC Comment Review of Relevant I have reviewed the following items joshua (where applicable) has been applied. STEPH HDZ MD Dec 11, 2017 14:37
== END 2017-12-11 14:00 | DRG 246 ==
LOC: ER 01:36 → 2 NORTH 04:20
PROVIDERS: ADMIT Internal Medicine; ATTEND Internal Medicine
PROC: 027034Z Dilation of Coronary Artery, One Artery with Drug-eluting Intraluminal Device, Percutaneous Approach (ICD-10-PCS; principal; 2017-12-05)
PROC: 4A023N7 Measurement of Cardiac Sampling and Pressure, Left Heart, Percutaneous Approach (ICD-10-PCS; 2017-12-05)
PROC: B2151ZZ Fluoroscopy of Left Heart using Low Osmolar Contrast (ICD-10-PCS; 2017-12-05)
PROC: B2111ZZ Fluoroscopy of Multiple Coronary Arteries using Low Osmolar Contrast (ICD-10-PCS; 2017-12-05)
DX: I21.4 Non-ST elevation (NSTEMI) myocardial infarction (principal); G93.41 Metabolic encephalopathy; N17.9 Acute kidney failure, unspecified; N39.0 Urinary tract infection, site not specified; I25.10 Atherosclerotic heart disease of native coronary artery without angina pectoris; B96.1 Klebsiella pneumoniae [K. pneumoniae] as the cause of diseases classified elsewhere; E11.9 Type 2 diabetes mellitus without complications; E78.5 Hyperlipidemia, unspecified; F03.90 Unspecified dementia, unspecified severity, without behavioral disturbance, psychotic disturbance, mood disturbance, and anxiety; G93.89 Other specified disorders of brain; I11.0 Hypertensive heart disease with heart failure; I48.91 Unspecified atrial fibrillation; I49.3 Ventricular premature depolarization; I50.9 Heart failure, unspecified; J44.9 Chronic obstructive pulmonary disease, unspecified; F41.9 Anxiety disorder, unspecified; M54.5 Low back pain; I35.0 Nonrheumatic aortic (valve) stenosis; M19.90 Unspecified osteoarthritis, unspecified site; K21.9 Gastro-esophageal reflux disease without esophagitis; K74.60 Unspecified cirrhosis of liver; I25.5 Ischemic cardiomyopathy; E66.3 Overweight; Z66 Do not resuscitate; W01.0XXA Fall on same level from slipping, tripping and stumbling without subsequent striking against object, initial encounter; Y93.89 Activity, other specified; Y92.009 Unspecified place in unspecified non-institutional (private) residence as the place of occurrence of the external cause; Y99.8 Other external cause status; Z68.26 Body mass index [BMI] 26.0-26.9, adult; Z86.73 Personal history of transient ischemic attack (TIA), and cerebral infarction without residual deficits; Z88.0 Allergy status to penicillin; Z88.8 Allergy status to other drugs, medicaments and biological substances; Z98.2 Presence of cerebrospinal fluid drainage device; Z87.01 Personal history of pneumonia (recurrent); Z79.899 Other long term (current) drug therapy; Z87.891 Personal history of nicotine dependence
CPT/HCPCS: 36415; 70250; 70450; 71045; 71046; 72125; 73060; 74018; 80048; 80053; 80061; 80307; 81001; 82553; 82607; 82962; 83605; 83690; 83735; 83880; 84443; 84484; 85025; 85520; 85610; 85730; 87086; 87186; 87804; 90471; 90756; 92928; 93005; 93306; 93454; 96361; 96365; 96375; 99152; 99153; 99291; C1725; C1769; C1874; C1887; C1892; J0583; J0690; J0696; J1644; J1815; J2250; J2405; J3010; J3475; J3490; J7030; 97110; 97116; 97530; 97535; G0479; Q2035